=== PATIENT | female | born 1975 | race Caucasian/White ===

== ENCOUNTER 2020-12-20 17:58 | Inpatient (IN) | payer OTHER, SELFPAY ==
--- NOTE | ~2020-12-20 | MR_ITS ---
EXAMINATION: MR ABDOMEN WITHOUT CONTRAST CLINICAL INFORMATION: Gallstones. Dilated common bile duct. COMPARISON: Previous CT scan of the abdomen and pelvis 12/21/2020 and abdominal ultrasound most recent 12/28/2020 TECHNIQUE: MR abdomen is performed without gadolinium contrast. MRCP sequences were also performed. Exam is limited due to motion artifact. FINDINGS: LUNG BASES: There are very small bilateral pleural effusions. The heart is upper normal in size. LIVER, GALLBLADDER, AND BILIARY TREE: The liver is normal in size, smooth in contour, and normal in signal. No focal hepatic lesion. The gallbladder is upper normal in size. There are gallstones in the gallbladder. There is a mild gallbladder wall thickening and gallbladder wall edema. Gallbladder wall thickness measures 5 mm. There is trace pericholecystic fluid. MRCP sequences are limited due to motion artifact. There is no intra or extrahepatic biliary duct dilatation. The common bile duct measures 4 mm. No common bile duct stone is seen. PANCREAS: Unremarkable. SPLEEN: Upper normal in size measuring 13 cm. ADRENAL GLANDS: Unremarkable. KIDNEYS AND URETERS: The kidneys are normal in size and shape. No hydronephrosis. No perinephric stranding. GASTROINTESTINAL TRACT: No bowel obstruction. No ascites or fluid collection. ABDOMINAL WALL: No significant hernia is appreciated. LYMPH NODES: No lymphadenopathy. There is a small amount of ascites. VASCULAR: Unremarkable. OSSEOUS STRUCTURES: Marrow signal normal. MR/MR MRCP IMPRESSION: Limited exam due to motion artifact. Upper normal-size gallbladder, gallstones, gallbladder wall thickening and gallbladder wall edema and trace pericholecystic fluid. Findings are concerning for acute cholecystitis. Limited MRCP due to motion artifact. Normal caliber intra and extrahepatic bile ducts. No common bile duct stone seen. Trace bilateral pleural effusions and ascites. Upper normal-size spleen.
--- NOTE | ~2020-12-20 | CT_ITS ---
EXAMINATION: CT HEAD WITHOUT CONTRAST CLINICAL INFORMATION: Altered mental status COMPARISON: None TECHNIQUE: Contiguous axial imaging was performed from the skull base to vertex without intravenous administration of contrast. This CT examination was performed using dose optimization techniques as appropriate, variously including the following: *Automated exposure control *Adjustment of mA and/or kV according to patient size (this includes techniques or standardized protocols for targeted exams where dose is matched to indication/reason for exam; i.e. extremities or head) *Use of iterative reconstruction technique DLP: 881 mGy-cm FINDINGS: There is no evidence of acute intracranial hemorrhage or territorial infarction. No abnormal mass effect or midline shift is seen. Lemus to white matter differentiation is well preserved. No extra-axial fluid collections are identified. The ventricles are normal in size. There is no abnormal attenuation within the brain parenchyma. The osseous structures and soft tissues are normal. The mastoid air cells and visualized portions of the paranasal sinuses are well aerated. CT/CT head/brain wo con IMPRESSION: No acute intracranial process seen.
--- NOTE | ~2020-12-20 | XR_ITS ---
EXAMINATION: XR CHEST CLINICAL INFORMATION: Generalized weakness COMPARISON: None TECHNIQUE: 2 views of the chest were obtained. FINDINGS: The heart size is normal. Bilateral patchy interstitial/groundglass changes are present in both lungs. No gross CHF. No definite pleural effusions are seen. XR/XR chest 2V IMPRESSION: Unfortunately, no prior films are available for comparison. Patchy interstitial/groundglass changes present bilaterally. Findings could represent Covid disease. Some element of this could represent chronic interstitial changes as well and if prior films are available, these would be helpful for comparison.
--- NOTE | ~2020-12-20 | US_ITS ---
EXAMINATION: US ABDOMEN LIMITED CLINICAL INFORMATION: Elevated bilirubin. Rule out obstructive stone. COMPARISON: CT abdomen and pelvis 12/21/2020. Ultrasound abdomen limited 12/20/2020. TECHNIQUE: Real-time imaging of the right upper quadrant abdominal viscera. FINDINGS: PANCREAS: Head and body appear unremarkable. Tail is obscured by overlying bowel gas LIVER: Normal. The liver is normal in size. The liver contour is normal. Parenchymal echogenicity is normal. No focal hepatic lesion. There is no intrahepatic biliary duct dilatation seen. GALLBLADDER: Multiple calculi seen within the phrygian cap. The gallbladder wall is thickened to approximately 6 mm in diameter and there is fluid within the gallbladder wall. No tenderness to palpation overlying the gallbladder was elicited. On the provided images there appears to be trace fluid within Chin's pouch. COMMON BILE DUCT: Prominent measuring 0.8 cm in diameter. RIGHT KIDNEY: The views were limited and the known calculi from recent CT scan were not definitely identified. No hydronephrosis. No renal calculi or focal parenchymal lesions. The kidney measures 10.0 cm in maximum dimension. US/US abdomen limited IMPRESSION: Cholelithiasis with some gallbladder wall thickening and fluid within the wall and what appears to be a trace free fluid within Morison's pouch on provided images. There is prominence of the common bile duct at 8 mm in diameter with no definite calculus seen within the visualized portions of the common bile duct. No intrahepatic bile duct dilatation is present. Above findings can be consistent with acute cholecystitis and clinical correlation is suggested.
--- NOTE | ~2020-12-20 | US_ITS ---
EXAMINATION: US ABDOMEN LIMITED CLINICAL INFORMATION: Transaminitis. COMPARISON: None TECHNIQUE: Real-time imaging of the right upper quadrant abdominal viscera. FINDINGS: PANCREAS: Normal. LIVER: The liver is normal in size. The liver contour is normal. Parenchymal echogenicity is normal. No focal hepatic lesion. There is no intrahepatic biliary duct dilatation seen. GALLBLADDER: Gallstones are present in the gallbladder which is distended. The wall is thickened at 0.8 cm and fluid can be seen in the wall. Of note, the patient was NOT focally tender when the gallbladder was palpated with the ultrasound probe. COMMON BILE DUCT: Normal in caliber measuring 0.4 cm in diameter. RIGHT KIDNEY: There is a 4 x 2 x 3 mm midpole echogenic focus consistent with a stone. No hydronephrosis. No other renal calculi or focal parenchymal lesions. The kidney measures 11.0 cm in maximum dimension. FREE FLUID: None. US/US abdomen limited IMPRESSION: Abnormal gallbladder which is distended containing calculi with significant wall thickening and fluid within the wall. The Frances's sign was negative but based upon appearances, cholecystitis needs to be considered.
--- NOTE | ~2020-12-20 | XR_ITS ---
EXAMINATION: XR CHEST CLINICAL INFORMATION: Evaluate for aspiration pneumonia COMPARISON: Previous chest x-ray December 2020 TECHNIQUE: Frontal view of the chest was obtained. FINDINGS: The lung volumes are low. The cardiac silhouette may be enlarged. Hilar and mediastinal contours are unremarkable. There is bilateral airspace disease increased from previous exam. There may be a right pleural effusion. There is no left pleural effusion. There is no pneumothorax. Bony structures are unremarkable. XR/XR chest 1V IMPRESSION: Low lung volumes. Significant interval increase in bilateral airspace disease and right pleural effusion. Differential would include pulmonary edema and pneumonia.
--- NOTE | ~2020-12-20 | CT_ITS ---
EXAMINATION: CT ABDOMEN AND PELVIS WITHOUT CONTRAST CLINICAL INFORMATION: Hematuria. Transaminitis. COMPARISON: Ultrasound abdomen 12/20/2020 TECHNIQUE: Multidetector volumetric imaging was performed from the superior aspect of the liver through the pubic symphysis. Sagittal and coronal reformatted images were obtained on the technologist's workstation. No oral or intravenous contrast. This CT examination was performed using dose optimization techniques as appropriate, variously including the following: *Automated exposure control *Adjustment of mA and/or kV according to patient size (this includes techniques or standardized protocols for targeted exams where dose is matched to indication/reason for exam; i.e. extremities or head) *Use of iterative reconstruction technique DLP: 455 mGy-cm FINDINGS: LUNG BASES: There are numerous cysts and honeycombing and accentuated reticular markings at the bilateral posterior lower lobes. Subsegmental atelectasis right anterior base. There is a 5 mm nodular opacity left posterior medial base initial image, possibly confluence of vascular markings on reformatted images. There is some fatty herniation at the diaphragmatic esophageal hiatus, 2.5 cm diameter. LIVER, GALLBLADDER, AND BILIARY TREE: The liver is normal in size and smooth in contour. There is no focal hepatic parenchymal lesion or intrahepatic ductal dilatation. The gallbladder is distended to 3.7 cm in diameter. There is a phrygian cap containing several gallstones. No visible gallbladder wall thickening or pericholecystic inflammatory changes. Common duct unremarkable. PANCREAS: Normal in size and attenuation. No pancreatic ductal distention. No retroperitoneal effusion. SPLEEN: Enlarged spleen measuring 15 cm sagittal dimension and 14 cm vertical dimension. There is homogeneous subcapsular fluid inferior medial spleen measuring 1.5 x 3.2 x 3.5 cm. Remainder of the spleen is homogeneous. ADRENAL GLANDS: Unremarkable. KIDNEYS AND Ureters: There are numerous nonobstructing bilateral renal calculi upper and central and lower poles largest approximately 6 mm and 330 5HU attenuation, right lower pole. No hydronephrosis, ureteral calculi, or perinephric stranding. BLADDER: Unremarkable. GASTROINTESTINAL TRACT: Small sliding hiatal hernia with some herniation fat esophageal hiatus. No large or small bowel obstruction or focal inflammatory changes. Appendix likely visualized and unremarkable. No pneumatosis or free air. There is some mild ascites central deep pelvis and around the liver. ABDOMINAL WALL: Small fat-containing umbilical hernia under 3 cm. LYMPH NODES: No lymphadenopathy. VASCULAR: Mild prominence portal vein, 1.6 cm diameter. Abdominal aorta normal in caliber. PELVIC VISCERA: Unremarkable. OSSEOUS STRUCTURES: Unremarkable. CT/CT abdomen pelvis wo con IMPRESSION: 1. Cholelithiasis. No biliary ductal dilatation or visible gallbladder wall thickening or pericholecystic inflammatory change. Unremarkable pancreas. Liver homogeneous. 2. Enlarged spleen 15 x 14 cm with small subcapsular fluid inferior medial aspect, possibly old hematoma 3.5 x 1.5 x 3.2 cm. Mild ascites. 3. No bowel obstruction or focal inflammatory changes. Small hiatal hernia. 4. Numerous bilateral nonobstructing renal calculi. No hydronephrosis or perinephric stranding. 5. Bibasilar lung fibrotic changes with numerous cysts and honeycombing. Nodular density left medial base 5 mm possibly confluence vascular markings extending beyond field of view.
[2020-12-20 18:12] VITALS: BP 106/61; PULSE 104; RESP 18; TEMP 36.6; O2SAT 95
[2020-12-20 18:15] VITALS: BP 106/61; PULSE 100; PULSE 95; RESP 16; TEMP 36.6; O2SAT 95; O2SAT 99; BMI 16.7
--- NOTE | 2020-12-20 18:41 | ECG_ITS ---
Test Reason : WEAKNESS Blood Pressure : / mmHG Vent. Rate : 085 BPM Atrial Rate : 085 BPM P-R Int : 158 ms QRS Dur : 086 ms QT Int : 380 ms P-R-T Axes : 037 -12 031 degrees QTc Int : 452 ms Normal sinus rhythm Normal ECG No previous ECGs available Referred By: Crystal Leon Electronically Signed By:Idris Berg
--- NOTE | 2020-12-20 18:50 | ED_ITS ---
HPI - Weakness General Chief complaint: Weakness Stated complaint: GENERAL WEAKNESS Time Seen by Provider: 12/20/20 18:29 Source: patient and EMS Mode of arrival: EMS Limitations: no limitations History of Present Illness HPI Narrative: 45-year-old female with a past medical history of lupus, hypothyroidism, hypertension, asthma and chronic pain presenting to the ED with complaints of generalized weakness, decreased appetite with associated joint pain all over her body, nasal congestion and a dry cough over the past 4-5 days worse today. Denies any headaches, dizziness, changes in vision, jaw pain, paresthesias, sore throat, productive cough, shortness of breath, dyspnea on exertion, orthopnea, any symptoms or any other symptoms complaints or concerns at this time. Denies recent travel or sick contacts. MD Complaint: generalized weakness Onset (ago): day(s) (4-5 days worse today) Duration: constant Location: generalized Severity: moderate Quality: aching Relieving factors: none Exacerbating factors: movement Associated symptoms: myalgias Related Data Allergies Allergy/AdvReac Type Severity Reaction Status Date / Time No Known Allergies Allergy Verified 12/20/20 18:15 Review of Systems Review of Systems: Constitutional : + Fatigue, + Malaise, No Weight loss, No Fever, No Chills, No Night Sweats ENT/Mouth : + Nasal congestion/rhinorrhea, No Hearing loss, No Ear Pain, No Sinus Pain, No Hoarseness, No sore throat, No Swallowing Difficulty Eyes: No Eye Pain, No Swelling, No Redness, No Foreign Body, No Discharge, No Vision Changes Cardiovascular : No Chest Pain, No SOB, No Dyspnea on Exertion, No Orthopnea, No Edema, No Palpitations Respiratory : + Cough, No Sputum, No Wheezing, No Smoke Exposure, No Dyspnea Gastrointestinal : No Nausea, No Vomiting, No Diarrhea, No Constipation, No abdominal Pain, No Hematochezia, No Melena Genitourinary : no irregular bleeding, No Dysuria, No Urinary Frequency, No Hematuria, No Urinary Incontinence, No Urgency, No Flank Pain, No Urinary Flow Changes, No Hesitancy Musculoskeletal : + joint pain, + Myalgias, No Joint Swelling Skin : No Skin Lesions, No rash Neuro : + Gen Weakness, No Focal weakness, No Numbness, No Paresthesias, No Loss of Consciousness, No Dizziness, No Headache Psych : No Anxiety/Panic, No Depression, No SI/HI/AH/VH, No Social Issues, Heme/Lymph: No Bruising, No Bleeding,No Lymphadenopathy Endocrine : No Polyuria, No Polydipsia, No Temperature Intolerance Yes all other systems are reviewed and are negative [facility] Past Medical History Attestation statement: The following information was validated with the patient. Social History Social History Alcohol intake: never Smoking Status: Never smoker Use of substances other than those prescribed or required for medical reasons: No Advance Directives: No Advance Directives Information Provided: No Physical Exam Vital Signs: Vital Signs: Last Vital Signs Temp 97.8 F 12/20/20 18:15 Pulse 95 12/20/20 18:15 Resp 16 12/20/20 18:15 BP 106/61 12/20/20 18:15 Pulse Ox 95 12/20/20 18:15 Body Mass Index 16.7 Vital signs have been reviewed as normal and appeared to be correct. Blood pressure normal. Heart rate tachycardic. Respiration rate normal. Temperature normal. Oxygen saturation normal. Appearance: Alert. Oriented X3. No acute distress. Head: Normal external exam. Normocephalic. Atraumatic. Able to rotate head bila terally. Eyes: PERRLA. EOMI. No nystagmus noted. Conjunctiva and sclera normal. Eyelids normal. Corneal reflex normal. ENT: EAC normal. TM's Normal. Hearing normal. Pharynx normal. Uvula midline. t ongue midline. Moist mucous membranes. No trismus noted. No drooling noted. No muffled voice noted. No nystagmus noted. Neck: Normal inspection. Neck supple. FROM. No adenopathy. Trachea midline. Thyroid Normal. No meningeal signs. No neck mass noted. CVS: Normal heart rate and rhythm. Heart sound normal. No murmurs noted. Pulses normal throughout. Respiratory: No respiratory distress. Painless inspiration. Breath sounds normal. No wheezes/rales/rhonchi noted. Chest nontender. No accessory muscle usage noted or decreased air movement noted. Abdomen: Soft and nontender. Bowel sounds normal in all 4 quadrants. No distention noted. No organomegaly noted. No visible injury noted. Back: No CVA tenderness. Full range of motion noted. Skin: Skin warm and dry. Normal skin color. Normal skin turgor. No rashes/lesions/lacerations noted. Extremities: No lower extremity edema. Extremities exhibit normal range of motion. Extremities nontender. Able to shrug shoulders bilaterally and keep up against resistance. Neuro: Oriented X 3. No motor deficit. No sensory deficit. Reflexes normal. Moving all extremities. No focal motor deficits. Cranial nerves II-XI intact bilaterally. Facial strength normal. Normal cognition. Speech normal. Gait normal. Strength 5/5 throughout. No pronator drift. No tremor noted. No fasciculations noted. No rigidity noted. Muscle tone normal throughout. No asterixis noted. Owhwny-bv-rnuu test normal. Heel to reyes test normal. Tandem gait normal. Does not sway with eyes open. Romberg test negative. Rapid alternating movement upper extremity normal. Rapid alternating movement lower extremity normal. Hand drop from overhead Misses face. NIHSS score 0. Course Course Course Narrative: 19pm - 45-year-old female with a past medical history of lupus, hypothyroidism, hypertension, asthma and chronic pain presenting to the ED with complaints of generalized weakness, decreased appetite with associated joint pain all over her body, nasal congestion and a dry cough over the past 4-5 days worse today. - concern for COVID versus electrolyte abnormality versus lupus flare - Plan: Labs, CXR, EKG, COVID/RSV/flu swab. Provide a L of IV fluids, 30 mg of IV Toradol, 125 mg of IV Solu-Medrol and 5 mg of oxycodone then re-evaluate Reevaluation(s) Reevaluation #1: - white blood cell count 2000 - platelet count 32. - patient anemic with a H&H of 8.8/27.6 - sodium 134 - chloride 111 - anion gap 9 - BUN/creatinine 52/1.74 - direct bilirubin/AST/ALT/alkaline phosphatase all elevated at 0.6/166/47/218 - patient negative for COVID/RSV/flu - EKG is normal sinus rhythm no acute ischemic changes noted. - CXR revealed patchy interstitial ground-glass changes present bilaterally findings could represent COVID disease versus chronic interstitial changes no prior films to compare to therefore unsure. - due to patient being anemic I obtain a stool occult and patient is positive although denies any rectal bleeding or black stools. - therefore will plan to admit for pancytopenia, stool occult positive and pneumonia awaiting to discuss this patient with the hospitalist at this time. - will also give 1 g of Rocephin. Time: 20:46 Reevaluation #2: - Dr. Ledesma requested a repeat troponin therefore at 22:00 the patient will have a repeat troponin and if the troponin is within normal limits and does not trend higher he will accept the admission - he also recommending adding azithromycin. - repeat troponin placed at this time for 22:00 sign-out to KOL[facility] Devine pending troponin and admit. Patient understands agrees with this plan. Time: 21:04 MDM - Weakness Medical Records Attestation: I reviewed the patient's medical records. Lab Data Attestation: I reviewed the patient's lab results. Result diagrams: 12/20/20 19:07 12/20/20 19:07 Labs: Lab Results 12/20/20 12/20/20 12/20/20 Range/Units 19:07 19:07 19:07 WBC 2.0 L (4.8-10.8) X10*3/uL RBC 2.76 L (4.20-5.50) X10*6/uL Hgb 8.8 L (12.0-16.0) g/dl Hct 27.6 L (37-47) % MCV 100.0 H (80-98) fL MCH 31.9 (27.0-33.0) pg MCHC 31.9 (31.0-35.0) g/dl RDW 18.4 H (11.0-16.0) % Plt Count 32 L (160-400) X10*3/uL MPV Not Reportable Immature Gran % (Auto) 0.5 H (0.0-0.4) % Neut % (Auto) 80.0 H (45-73) % Lymph % (Auto) 12.5 L (20-40) % Hinds % (Auto) 5.0 (2-11) % Eos % (Auto) 2.0 (0-4) % Baso % (Auto) 0.0 (0-2) % Lymph # (Auto) 0.3 L (1.2-4.9) X10*3/uL Hinds # (Auto) 0.1 (0.1-1.2) X10*3/uL Eos # (Auto) 0.0 (0.0-0.4) X10*3/uL Baso # (Auto) 0.0 (0.0-0.2) X10*3/uL Abs Immat Gran (auto) 0.01 (0.00-0.03) X10*3/uL Absolute Neuts (auto) 1.6 L (2.0-8.3) X10*3/uL Absolute Nucleated RBC 0.020 H (0.0-0.012) X10*3/uL Nucleated RBC % (auto) 1.0 H (0.0-0.2) /100WBC Smear Tech's Comments VERIFIED Hold Purple Top PT (10.8-13.0) SEC INR (0.9-1.1) Sodium 134 L (135-145) mmol/L Potassium 4.5 (3.3-5.1) mmol/L Chloride 111 H (96-108) mmol/L Carbon Dioxide 19 L (22-29) mmol/L Anion Gap 9 L (12-20) BUN 52 H (9-16) mg/dL Creatinine 1.74 H (0.5-1.4) mg/dL Estim Creat Clear Calc 31.5 Estimated GFR 32 Random Glucose 88 (60-115) mg/dL Lactic Acid (0.5-2.0) mmol/L Calcium 9.7 (8.4-10.2) mg/dL Magnesium 1.9 (1.6-2.6) mg/dL Ferritin 635 H (10-250) ng/mL Total Bilirubin 0.9 (0.0-1.0) mg/dL Direct Bilirubin 0.6 H (0.0-0.5) mg/dL AST 166 H (5-31) U/L ALT 47 H (0-31) U/L Alkaline Phosphatase 218 H (39-117) U/L Lactate Dehydrogenase 275 H (122-220) U/L Total Creatine Kinase 22 L (26-140) U/L Troponin I High Sens (<3.5-17.0) ng/L C-Reactive Protein 5.81 H (< or = 0.50) mg/dL Total Protein 9.3 H (6.5-8.0) g/dL Albumin 1.7 L (3.5-5.0) g/dL Procalcitonin ng/mL Beta HCG, Quant mIU/mL Stool Occult Blood (NEG) Coronavirus (PCR) NEGATIVE (Negative) Influenza Type A (PCR) NEGATIVE (Negative) Influenza Type B (PCR) NEGATIVE (Negative) RSV RNA Qual (PCR) NEGATIVE (Negative) 12/20/20 12/20/20 12/20/20 Range/Units 19:07 19:07 19:07 WBC (4.8-10.8) X10*3/uL RBC (4.20-5.50) X10*6/uL Hgb (12.0-16.0) g/dl Hct (37-47) % MCV (80-98) fL MCH (27.0-33.0) pg MCHC (31.0-35.0) g/dl RDW (11.0-16.0) % Plt Count (160-400) X10*3/uL MPV Immature Gran % (Auto) (0.0-0.4) % Neut % (Auto) (45-73) % Lymph % (Auto) (20-40) % Hinds % (Auto) (2-11) % Eos % (Auto) (0-4) % Baso % (Auto) (0-2) % Lymph # (Auto) (1.2-4.9) X10*3/uL Hinds # (Auto) (0.1-1.2) X10*3/uL Eos # (Auto) (0.0-0.4) X10*3/uL Baso # (Auto) (0.0-0.2) X10*3/uL Abs Immat Gran (auto) (0.00-0.03) X10*3/uL Absolute Neuts (auto) (2.0-8.3) X10*3/uL Absolute Nucleated RBC (0.0-0.012) X10*3/uL Nucleated RBC % (auto) (0.0-0.2) /100WBC Smear Tech's Comments Hold Purple Top SEE NOTE PT (10.8-13.0) SEC INR (0.9-1.1) Sodium (135-145) mmol/L Potassium (3.3-5.1) mmol/L Chloride (96-108) mmol/L Carbon Dioxide (22-29) mmol/L Anion Gap (12-20) BUN (9-16) mg/dL Creatinine (0.5-1.4) mg/dL Estim Creat Clear Calc Estimated GFR Random Glucose (60-115) mg/dL Lactic Acid (0.5-2.0) mmol/L Calcium (8.4-10.2) mg/dL Magnesium (1.6-2.6) mg/dL Ferritin (10-250) ng/mL Total Bilirubin (0.0-1.0) mg/dL Direct Bilirubin (0.0-0.5) mg/dL AST (5-31) U/L ALT (0-31) U/L Alkaline Phosphatase (39-117) U/L Lactate Dehydrogenase (122-220) U/L Total Creatine Kinase (26-140) U/L Troponin I High Sens (<3.5-17.0) ng/L C-Reactive Protein (< or = 0.50) mg/dL Total Protein (6.5-8.0) g/dL Albumin (3.5-5.0) g/dL Procalcitonin 0.22 ng/mL Beta HCG, Quant < 2 mIU/mL Stool Occult Blood (NEG) Coronavirus (PCR) (Negative) Influenza Type A (PCR) (Negative) Influenza Type B (PCR) (Negative) RSV RNA Qual (PCR) (Negative) 12/20/20 12/20/20 12/20/20 Range/Units 19:07 20:10 20:18 WBC (4.8-10.8) X10*3/uL RBC (4.20-5.50) X10*6/uL Hgb (12.0-16.0) g/dl Hct (37-47) % MCV (80-98) fL MCH (27.0-33.0) pg MCHC (31.0-35.0) g/dl RDW (11.0-16.0) % Plt Count (160-400) X10*3/uL MPV Immature Gran % (Auto) (0.0-0.4) % Neut % (Auto) (45-73) % Lymph % (Auto) (20-40) % Hinds % (Auto) (2-11) % Eos % (Auto) (0-4) % Baso % (Auto) (0-2) % Lymph # (Auto) (1.2-4.9) X10*3/uL Hinds # (Auto) (0.1-1.2) X10*3/uL Eos # (Auto) (0.0-0.4) X10*3/uL Baso # (Auto) (0.0-0.2) X10*3/uL Abs Immat Gran (auto) (0.00-0.03) X10*3/uL Absolute Neuts (auto) (2.0-8.3) X10*3/uL Absolute Nucleated RBC (0.0-0.012) X10*3/uL Nucleated RBC % (auto) (0.0-0.2) /100WBC Smear Tech's Comments Hold Purple Top PT (10.8-13.0) SEC INR (0.9-1.1) Sodium (135-145) mmol/L Potassium (3.3-5.1) mmol/L Chloride (96-108) mmol/L Carbon Dioxide (22-29) mmol/L Anion Gap (12-20) BUN (9-16) mg/dL Creatinine (0.5-1.4) mg/dL Estim Creat Clear Calc Estimated GFR Random Glucose (60-115) mg/dL Lactic Acid 0.9 (0.5-2.0) mmol/L Calcium (8.4-10.2) mg/dL Magnesium (1.6-2.6) mg/dL Ferritin (10-250) ng/mL Total Bilirubin (0.0-1.0) mg/dL Direct Bilirubin (0.0-0.5) mg/dL AST (5-31) U/L ALT (0-31) U/L Alkaline Phosphatase (39-117) U/L Lactate Dehydrogenase (122-220) U/L Total Creatine Kinase (26-140) U/L Troponin I High Sens 20.1 H (<3.5-17.0) ng/L C-Reactive Protein (< or = 0.50) mg/dL Total Protein (6.5-8.0) g/dL Albumin (3.5-5.0) g/dL Procalcitonin ng/mL Beta HCG, Quant mIU/mL Stool Occult Blood POS (NEG) Coronavirus (PCR) (Negative) Influenza Type A (PCR) (Negative) Influenza Type B (PCR) (Negative) RSV RNA Qual (PCR) (Negative) 12/20/20 Range/Units 20:18 WBC (4.8-10.8) X10*3/uL RBC (4.20-5.50) X10*6/uL Hgb (12.0-16.0) g/dl Hct (37-47) % MCV (80-98) fL MCH (27.0-33.0) pg MCHC (31.0-35.0) g/dl RDW (11.0-16.0) % Plt Count (160-400) X10*3/uL MPV Immature Gran % (Auto) (0.0-0.4) % Neut % (Auto) (45-73) % Lymph % (Auto) (20-40) % Hinds % (Auto) (2-11) % Eos % (Auto) (0-4) % Baso % (Auto) (0-2) % Lymph # (Auto) (1.2-4.9) X10*3/uL Hinds # (Auto) (0.1-1.2) X10*3/uL Eos # (Auto) (0.0-0.4) X10*3/uL Baso # (Auto) (0.0-0.2) X10*3/uL Abs Immat Gran (auto) (0.00-0.03) X10*3/uL Absolute Neuts (auto) (2.0-8.3) X10*3/uL Absolute Nucleated RBC (0.0-0.012) X10*3/uL Nucleated RBC % (auto) (0.0-0.2) /100WBC Smear Tech's Comments Hold Purple Top PT 14.7 H (10.8-13.0) SEC INR 1.2 H (0.9-1.1) Sodium (135-145) mmol/L Potassium (3.3-5.1) mmol/L Chloride (96-108) mmol/L Carbon Dioxide (22-29) mmol/L Anion Gap (12-20) BUN (9-16) mg/dL Creatinine (0.5-1.4) mg/dL Estim Creat Clear Calc Estimated GFR Random Glucose (60-115) mg/dL Lactic Acid (0.5-2.0) mmol/L Calcium (8.4-10.2) mg/dL Magnesium (1.6-2.6) mg/dL Ferritin (10-250) ng/mL Total Bilirubin (0.0-1.0) mg/dL Direct Bilirubin (0.0-0.5) mg/dL AST (5-31) U/L ALT (0-31) U/L Alkaline Phosphatase (39-117) U/L Lactate Dehydrogenase (122-220) U/L Total Creatine Kinase (26-140) U/L Troponin I High Sens (<3.5-17.0) ng/L C-Reactive Protein (< or = 0.50) mg/dL Total Protein (6.5-8.0) g/dL Albumin (3.5-5.0) g/dL Procalcitonin ng/mL Beta HCG, Quant mIU/mL Stool Occult Blood (NEG) Coronavirus (PCR) (Negative) Influenza Type A (PCR) (Negative) Influenza Type B (PCR) (Negative) RSV RNA Qual (PCR) (Negative) Imaging Data Chest x-ray: Attestation: I personally reviewed and interpreted this imaging study as follows: Radiologist's impression: FINDINGS: The heart size is normal. Bilateral patchy interstitial/groundglass changes are present in both lungs. No gross CHF. No definite pleural effusions are seen. XR/XR chest 2V IMPRESSION: Unfortunately, no prior films are available for comparison. Patchy interstitial/groundglass changes present bilaterally. Findings could represent Covid disease. Some element of this could represent chronic interstitial changes as well and if prior films are available, these would be helpful for comparison. ECG Data Attestation: I personally reviewed and interpreted this ECG as follows: ECG interpretation date: 12/20/20 ECG interpretation time: 18:55 Interpretation: Normal sinus rhythm with ventricular rate of 85 with a normal IN interval normal QRS duration normal QT/QTC interval. No acute ischemic changes noted. Critical Care Time Critical Care Time Critical Care Time: Yes Total Critical Care Time: 60 Attestation: I personally attest to this time spent taking care of the patient Discharge Plan Discharge Clinical Impression: Pancytopenia, Acute renal failure, Pneumonia, Positive fecal occult blood test
[2020-12-20] MEDS: 0.9 % Sodium Chloride 1,000 ML 999 ML IVCONT ×2 (19:17→22:14)
[2020-12-20] MEDS: methylPREDNISolone Sod Succ/PF 125 MG/2 ML VIAL IVPUSH (19:17)
[2020-12-20] MEDS: oxyCODONE HCl Immed Release 5 MG TABLET PO (19:17)
[2020-12-20] MEDS: Ketorolac Tromethamine 30 MG/ML VIAL IVPUSH (19:17)
--- NOTE | 2020-12-20 19:20 | PC.NURSE ---
patient a&ox3, c/o 07/13 pain, cardiac rehab nurse nsr 80s, iv inserted, labs drawn, covid swab performed, will continue to monitor.
[2020-12-20 19:28] LABS: Hemoglobin 8.8 g/dl (12.0-16.0); MANUAL DIFF FLAG SCAN; Red Cell Distribution Width 18.4 % (11.0-16.0); SCAN SMEAR FLAG 1
[2020-12-20 19:29] LABS: Hematocrit 27.6 % (37-47); Imm Gran Abs Auto 0.01 X10*3/uL (0.00-0.03); Imm Gran Pct Auto 0.5 % (0.0-0.4); Lymphocytes Absolute Auto 0.3 X10*3/uL (1.2-4.9); Lymphocytes Percent Auto 12.5 % (20-40); Mean Corpuscular HGB Conc 31.9 g/dl (31.0-35.0); Mean Corpuscular Hemoglobin 31.9 pg (27.0-33.0); Monocytes Absolute Auto 0.1 X10*3/uL (0.1-1.2); Neutrophils Absolute Auto 1.6 X10*3/uL (2.0-8.3); Red Blood Count 2.76 X10*6/uL (4.20-5.50)
[2020-12-20 19:43] LABS: PLT ABN DIST 1; Platelet Count 32 X10*3/uL (160-400)
[2020-12-20 19:50] LABS: Alanine Aminotransferase 47 U/L (0-31); Albumin Level 1.7 g/dL (3.5-5.0); Alkaline Phosphatase 218 U/L (39-117); Anion Gap 9 (12-20); Aspartate Amino Transferase 166 U/L (5-31); Bilirubin Direct 0.6 mg/dL (0.0-0.5); Bilirubin Total 0.9 mg/dL (0.0-1.0); Blood Urea Nitrogen 52 mg/dL (9-16); Calcium 9.7 mg/dL (8.4-10.2); Carbon Dioxide 19 mmol/L (22-29); Chloride 111 mmol/L (96-108); Creatinine Clr Calc Pharmacy 31.5; Estimated Glomerular Filt Rate 32; Glucose Random 88 mg/dL (60-115); Magnesium 1.9 mg/dL (1.6-2.6); Potassium 4.5 mmol/L (3.3-5.1); Sodium 134 mmol/L (135-145); Total Protein 9.3 g/dL (6.5-8.0)
[2020-12-20 19:52] LABS: SLIDE REVIEW VERIFIED
[2020-12-20 20:07] LABS: HCG Quantitative < 2 mIU/mL
[2020-12-20 20:11] LABS: Influenza A PCR NEGATIVE (Negative); Influenza B PCR NEGATIVE (Negative); Resp Syncy Virus RNA Qual PCR NEGATIVE (Negative); SARS COV2 PCR INHOUSE NEGATIVE (Negative)
[2020-12-20 20:20] LABS: OBS Int Ctl Valid YES; OBS1 POS (NEG)
[2020-12-20 20:36] LABS: INTERNATIONAL NORM RATIO 1.2 (0.9-1.1); Prothrombin Time 14.7 SEC (10.8-13.0)
[2020-12-20 20:48] LABS: Lactic Acid 0.9 mmol/L (0.5-2.0)
[2020-12-20 20:48] LABS: Ferritin 635 ng/mL (10-250)
[2020-12-20 20:49] LABS: C Reactive Protein 5.81 mg/dL (< or = 0.50); Lactate Dehydrogenase 275 U/L (122-220)
[2020-12-20 20:50] LABS: Procalcitonin 0.22 ng/mL; Troponin-I High Sensitivity 20.1 ng/L (<3.5-17.0)
[2020-12-20 21:39] VITALS: BP 112/78; PULSE 78; RESP 18; TEMP 36.8; O2SAT 97
--- NOTE | 2020-12-20 21:41 | P.HPHOSP_ITS ---
History of Present Illness Date of Service: 12/20/20 Chief Complaint: Generalized weakness 45-year-old female with a past medical history of lupus, hypertension, anemia, interstitial lung disease, joint pains presented to the hospital with a chief complaint of generalized weakness for the past 4 days. Mentions that she has been having body aches all over-mentions as bone pains; which have been chronic and lately has been increasing in severity. Denies any specific joint pains. Also reports dry cough. Denies fever chills. Denies any numbness tingling. Denies any GI or symptoms. Denies any chest pain palpitations. Mentioned that she has decreased oral intake lately. Denies any nausea. Review of all other systems is negative except mentioned above ER course: Per ER team patient examination was benign. Patient denied any chest pain. EKG was nonischemic. Initial troponin was [id number] troponin pending. Patient was given Solu-Medrol given concerns for ILD. COVID- 19 negative. [facility] Social History Alcohol intake: never Smoking Status: Never smoker Use of substances other than those prescribed or required for medical reasons: No Advance Directives: No Advance Directives Information Provided: No Meds Allergies Allergy/AdvReac Type Severity Reaction Status Date / Time No Known Allergies Allergy Verified 12/20/20 18:15 Active Medications: Current Medications Generic Name Dose Route Start Last Admin Trade Name Freq PRN Reason Stop Dose Admin Azithromycin 500 mg/ Sodium 250 mls @ 125 mls/hr 12/20/20 21:03 Chloride IV 12/20/20 23:02 ONCE ONE Physical Exam Vital Signs and Narrative: Vital Signs: Last Vital Signs Temp 97.8 F 12/20/20 18:15 Pulse 95 12/20/20 18:15 Resp 16 12/20/20 18:15 BP 106/61 12/20/20 18:15 Pulse Ox 95 12/20/20 18:15 Body Mass Index 16.7 Gen: Appears be in no acute distress HEENT: NCAT, Moist mucosa. Pulmonary: Vesicular breath sounds, fair air entry CVS: Normal S1-S2 Abdomen: BS+, Soft, Nontender Extremities: Warm well perfused; no focal joint swelling or tenderness noticed. Neuro: Alert and awake. Results Labs CBC and Chem 7: 12/20/20 19:07 12/20/20 19:07 Labs: Laboratory Results - last 24 hr 12/20/20 12/20/20 12/20/20 19:07 19:07 19:07 MCV 100.0 H MCH 31.9 MCHC 31.9 RDW 18.4 H Plt Count 32 L MPV Not Reportable Immature Gran % (Auto) 0.5 H Neut % (Auto) 80.0 H Lymph % (Auto) 12.5 L Morrison % (Auto) 5.0 Eos % (Auto) 2.0 Baso % (Auto) 0.0 Lymph # (Auto) 0.3 L Morrison # (Auto) 0.1 Eos # (Auto) 0.0 Baso # (Auto) 0.0 Abs Immat Gran (auto) 0.01 Absolute Neuts (auto) 1.6 L Absolute Nucleated RBC 0.020 H Nucleated RBC % (auto) 1.0 H Smear Tech's Comments VERIFIED Hold Purple Top PT INR Anion Gap 9 L Estim Creat Clear Calc 31.5 Estimated GFR 32 Random Glucose 88 Lactic Acid Calcium 9.7 Magnesium 1.9 Ferritin 635 H Total Bilirubin 0.9 Direct Bilirubin 0.6 H AST 166 H ALT 47 H Alkaline Phosphatase 218 H Lactate Dehydrogenase 275 H Total Creatine Kinase 22 L Troponin I High Sens C-Reactive Protein 5.81 H Total Protein 9.3 H Albumin 1.7 L Procalcitonin Beta HCG, Quant Stool Occult Blood Coronavirus (PCR) NEGATIVE Influenza Type A (PCR) NEGATIVE Influenza Type B (PCR) NEGATIVE RSV RNA Qual (PCR) NEGATIVE 12/20/20 12/20/20 12/20/20 19:07 19:07 19:07 MCV MCH MCHC RDW Plt Count MPV Immature Gran % (Auto) Neut % (Auto) Lymph % (Auto) Morrison % (Auto) Eos % (Auto) Baso % (Auto) Lymph # (Auto) Morrison # (Auto) Eos # (Auto) Baso # (Auto) Abs Immat Gran (auto) Absolute Neuts (auto) Absolute Nucleated RBC Nucleated RBC % (auto) Smear Tech's Comments Hold Purple Top SEE NOTE PT INR Anion Gap Estim Creat Clear Calc Estimated GFR Random Glucose Lactic Acid Calcium Magnesium Ferritin Total Bilirubin Direct Bilirubin AST ALT Alkaline Phosphatase Lactate Dehydrogenase Total Creatine Kinase Troponin I High Sens C-Reactive Protein Total Protein Albumin Procalcitonin 0.22 Beta HCG, Quant < 2 Stool Occult Blood Coronavirus (PCR) Influenza Type A (PCR) Influenza Type B (PCR) RSV RNA Qual (PCR) 12/20/20 12/20/20 12/20/20 19:07 20:10 20:18 MCV MCH MCHC RDW Plt Count MPV Immature Gran % (Auto) Neut % (Auto) Lymph % (Auto) Morrison % (Auto) Eos % (Auto) Baso % (Auto) Lymph # (Auto) Morrison # (Auto) Eos # (Auto) Baso # (Auto) Abs Immat Gran (auto) Absolute Neuts (auto) Absolute Nucleated RBC Nucleated RBC % (auto) Smear Tech's Comments Hold Purple Top PT INR Anion Gap Estim Creat Clear Calc Estimated GFR Random Glucose Lactic Acid 0.9 Calcium Magnesium Ferritin Total Bilirubin Direct Bilirubin AST ALT Alkaline Phosphatase Lactate Dehydrogenase Total Creatine Kinase Troponin I High Sens 20.1 H C-Reactive Protein Total Protein Albumin Procalcitonin Beta HCG, Quant Stool Occult Blood POS Coronavirus (PCR) Influenza Type A (PCR) Influenza Type B (PCR) RSV RNA Qual (PCR) 12/20/20 20:18 MCV MCH MCHC RDW Plt Count MPV Immature Gran % (Auto) Neut % (Auto) Lymph % (Auto) Morrison % (Auto) Eos % (Auto) Baso % (Auto) Lymph # (Auto) Morrison # (Auto) Eos # (Auto) Baso # (Auto) Abs Immat Gran (auto) Absolute Neuts (auto) Absolute Nucleated RBC Nucleated RBC % (auto) Smear Tech's Comments Hold Purple Top PT 14.7 H INR 1.2 H Anion Gap Estim Creat Clear Calc Estimated GFR Random Glucose Lactic Acid Calcium Magnesium Ferritin Total Bilirubin Direct Bilirubin AST ALT Alkaline Phosphatase Lactate Dehydrogenase Total Creatine Kinase Troponin I High Sens C-Reactive Protein Total Protein Albumin Procalcitonin Beta HCG, Quant Stool Occult Blood Coronavirus (PCR) Influenza Type A (PCR) Influenza Type B (PCR) RSV RNA Qual (PCR) Imaging Radiologist's Impressions: Impressions Chest X-Ray 12/20/20 18:41 IMPRESSION: Unfortunately, no prior films are available for comparison. Patchy interstitial/groundglass changes present bilaterally. Findings could represent Covid disease. Some element of this could represent chronic interstitial changes as well and if prior films are available, these would be helpful for comparison. Assessment and Plan (1) Pancytopenia: Status: Acute 46-year-old female with a past medical history of hypertension, anemia, interstitial lung disease, lupus on azathioprine presented to the hospital with a chief complaint of generalized weakness and bony pains. Generalized weakness/bony pains: Patient has no active signs of infection. Noted mild dehydration and MILAN. Supportive care. Dilaudid p.r.n. for pain. MILAN: Gentle IV fluids. Monitor creatinine. Avoid nephrotoxins. If not improving will defer to the primary team to consider Nephrology consult in the morning. Question patient is on an aside at home pain control. Interstitial lung disease: On exam noted to have mild crackles. Solu-Medrol 40 mg IV t.i.d.. Nebulizations. Patient also started on empiric antibiotics- ceftriaxone and azithromycin High troponins: Patient denies any chest pain. Troponins trending down. Will obtain echocardiogram. Cardiology consult. Transaminitis: Unclear etiology. Trend liver enzymes. Will send acute hepatitis panel and right upper quadrant ultrasound. Question drug related. Anemia: Patient is guaiac-positive in the ER. Hemoglobin of 8.1. Monitor H&H. IV ppi. GI consult. History of lupus: Continue home meds . DVT prophylaxis: Lovenox Full code
[2020-12-20] MEDS: cefTRIAXone sodium 1 GM in 0.9 % Sodium Chloride 50 ML IV (22:39)
[2020-12-20] MEDS: Enoxaparin Sodium 40 MG/0.4 ML SYRINGE SUBCUT (22:40)
[2020-12-20] MEDS: Azithromycin 500 MG in 0.9 % Sodium Chloride 250 ML 125 MG IV (23:52)
[2020-12-20 23:53] VITALS: BP 104/66; PULSE 80; RESP 14; TEMP 36.9; O2SAT 98
[2020-12-21 00:11] LABS: Troponin-I High Sensitivity 17.7 ng/L (<3.5-17.0)
[2020-12-21 04:40] VITALS: BP 94/65; PULSE 69; RESP 18; O2SAT 96
[2020-12-21] MEDS: 0.9 % Sodium Chloride 500 ML 50 ML IV (05:07)
[2020-12-21 05:31] LABS: Glucose Urine UA NEG (NEG); Leukocyte Esterase Urine 1+ (NEG); Nitrite Urine NEG (NEG); PH 6.5 (5.0-8.0); Specific Gravity - Urine 1.015 (1.005-1.025); UACC Culture Trigger YES; Urine Blood 3+ (NEG); Urine Ketones NEG (NEG); Urine Protein 1+ MG/DL (NEG-TRACE)
[2020-12-21 05:32] LABS: Appearance Urine HAZY; Color Urine AMBER
[2020-12-21 05:37] LABS: Bacteria Urine 1+ /LPF; Mucus Urine 1+ /LPF; Squamous Epithelial Cell Urine 1+ /LPF
[2020-12-21] MEDS: Pantoprazole Sodium 40 MG/10 ML VIAL IVPUSH (06:21)
--- NOTE | 2020-12-21 07:31 | CA_ITS ---
Transthoracic Echocardiogram Patient (Last, First, Middle): Sweta Krishna, Gender: Female Date of : 1975 Age: 45 Procedure Date: 12/21/2020 Procedure Type: Transthoracic Echocardiogram Location: ER Height: 170.18 cm Weight: 48.54 kg BSA: 1.55 m2 Heart Rate: bpm BP: 94 / 95 mmHg Metal Tube Cutter: COLIN Referring MD: Catracho Ledesma MD Symptoms: high troponin Study Quality: Good Conclusions: - Normal left ventricular size and systolic function. - Normal right ventricular cavity size. There is low normal right ventricular systolic function. Findings Left Ventricle Normal left ventricular size and systolic function. There is mildly increased left ventricular wall thickness. The visually estimated ejection fraction is between 55-60%. There is no evidence of regional wall motion abnormalities. Diastolic function is normal for age. Right Ventricle Normal right ventricular cavity size. There is low normal right ventricular systolic function. Atria Both atria are normal in size. Aortic Valve Normal aortic valve structure and function. There is no aortic valve stenosis. There is no aortic valve regurgitation. Mitral Valve Normal mitral valve structure and function. There is trace mitral valve regurgitation. There is no mitral valve stenosis. Pulmonic Valve Normal pulmonic valve structure and function. There is trace pulmonic valve regurgitation. Tricuspid Valve Normal tricuspid valve structure and function. There is no tricuspid valve regurgitation. Normal right atrial pressure. There is no evidence of pulmonary hypertension. Great Vessels The visualized portions of the pulmonary artery and branches are normal. Venous The inferior vena cava is normal in size and collapses greater than 50% with inspiration. Pericardium/Pleural There is no evidence of pericardial effusion. Prior Study Comparison No prior study available for comparison. Measurements 2D Linear Measurements IVSd: 1.01 0.6-0.9/0.6-1.0 cm LVIDd: 3.80 3.9-5.3/4.2-5.9 cm LVIDd Index: 2.45 2.4-3.2/2.2-3.1 cm/m2 LVIDs: 2.56 2.0-3.6 cm LVPWd: 1.01 0.7-1.1 cm Ao Root: 3.20 2.1-3.5 cm LA Diam: 3.60 2.7-3.8/3.0-4.0 cm LAIDs Index: 2.32 1.5-2.3 cm/m2 LV Mass: 147.96 67-162/88-224 g LV Mass Index: 95.46 43-95/49-115 g/m2 LVOT Diam: 2.30 3.0+(-)1.3 cm Mitral Valve MV Pk E: 0.69 MV PK A: 0.56 MV Decel Time: 338.00 E/A: 1.20 E'Lateral: 9.14 E'Medial: 6.42 E/E' Med: 10.80 E/E' Lat: 7.60 PHT: 99.00 MVA PHT: 2.22 Decel Cavalier: 2.05 Aortic Valve AoV Pk Malcolm: 1.10 AoV Mn Malcolm: 0.78 AoV VTI: 0.23 AoV Pk Grad: 5.00 Aov Mn Grad: 3.00 BRANDI Cont.VTI: 2.94 LVOT LVOT Pk Malcolm: 0.76 LVOT Mn Malcolm: 0.47 LVOT VTI: 0.16 LVOT Pk Grad: 2.00 LVOT Mn Grad: 1.00 LVOT Diam: 2.30 LVOT Area: 4.15 Diastolic Function MV Pk E: 0.69 MV Pk A: 0.56 E/A: 1.20 E'Medial: 6.42 E/E' Med: 10.80 E' Laterial: 9.14 E/E' Lat: 7.60 Tricuspid Valve TR Pk Malcolm: 1.87 TR Pk Grad: 14.00 RA Press: 3.00 RVSP: 17.00 Great Vessels Aorta Ao Root-2D: 3.20 2.0-3.7 cm Ao Asc: 3.10 2.1-3.4 cm Ao Arch: 2.30 Updated in Other Vendor System with Status of Final Idris Berg MD electronically signed on 12/21/2020 2:44:59 PM with status of Final
--- NOTE | 2020-12-21 07:39 | PC.NURSE ---
NURSE TO NURSE GIVEN TO [place] ON [place].
[2020-12-21 08:10] LABS: HBsAGNum1 0.15 S/CO (0.00-0.99); Hepatitis B Surface Antigen Negative (Negative); ~HepC Num1 2.09 S/CO (0.00-0.79); ~Hepatitis C Antibody Reactive (Nonreactive)
[2020-12-21 08:58] LABS: HBS Num1 46.57 mIU/mL (0-7.99); HBc Num1 0.53 S/CO (0.00-0.79); Hepatitis B Core Antibody Nonreactive (Nonreactive); ~Hepatitis B Surface Antibody REACTIVE (Nonreactive)
[2020-12-21 09:12] VITALS: BP 107/70; PULSE 88; RESP 19; TEMP 36.6; O2SAT 98
[2020-12-21 10:09] LABS: Eosinophils Percent Auto 0.5 % (0-4); Hematocrit 29.1 % (37-47); Hemoglobin 9.1 g/dl (12.0-16.0); Imm Gran Abs Auto 0.02 X10*3/uL (0.00-0.03); Imm Gran Pct Auto 0.9 % (0.0-0.4); Lymphocytes Absolute Auto 0.3 X10*3/uL (1.2-4.9); Lymphocytes Percent Auto 13.4 % (20-40); MANUAL DIFF FLAG SCAN; Mean Corpuscular HGB Conc 31.3 g/dl (31.0-35.0); Mean Corpuscular Hemoglobin 31.5 pg (27.0-33.0); Mean Corpuscular Volume 100.7 fL (80-98); Monocytes Absolute Auto 0.1 X10*3/uL (0.1-1.2); Monocytes Percent Auto 2.3 % (2-11); Neutrophils Absolute Auto 1.8 X10*3/uL (2.0-8.3); Neutrophils Percent Auto 82.9 % (45-73); Red Blood Count 2.89 X10*6/uL (4.20-5.50); Red Cell Distribution Width 18.6 % (11.0-16.0); SCAN SMEAR FLAG 1
[2020-12-21 10:11] LABS: INTERNATIONAL NORM RATIO 1.2 (0.9-1.1); Prothrombin Time 14.6 SEC (10.8-13.0)
[2020-12-21 10:16] LABS: Platelet Count 29 X10*3/uL (160-400); White Blood Count 2.2 X10*3/uL (4.8-10.8)
[2020-12-21 10:32] LABS: Anion Gap 10 (12-20); Blood Urea Nitrogen 43 mg/dL (9-16); Calcium 8.9 mg/dL (8.4-10.2); Carbon Dioxide 17 mmol/L (22-29); Chloride 116 mmol/L (96-108); Creatinine Clr Calc Pharmacy 36.9; Estimated Glomerular Filt Rate 38; Glucose Random 107 mg/dL (60-115); Magnesium 1.9 mg/dL (1.6-2.6); Potassium 5.1 mmol/L (3.3-5.1); Sodium 138 mmol/L (135-145)
[2020-12-21 10:51] LABS: HIV AB/AG Nonreactive (Nonreactive); HIV Num 1 0.17 S/CO (0.00-0.99)
[2020-12-21 10:59] LABS: SLIDE REVIEW VERIFIED
[2020-12-21 11:28] VITALS: BP 117/75; PULSE 68; RESP 17; TEMP 36.6; O2SAT 98
[2020-12-21 12:04] LABS: Folate 7.4 ng/mL (> or = 4.0); Vitamin B12 1222 pg/mL (200-900)
--- NOTE | 2020-12-21 12:12 | HO.PM.IMPN ---
Subjective Subjective Date of Service: 12/21/20 Interval History: the patient was seen and evaluated this morning Laying in bed, feels tired and complaining of pain all over her body Repeat not taking any medication for lupus Denies any fever, chills or shortness of breath No reported other overnight events. Systemic review: No fever, chills but reports generalized weakness No chest pain, palpitation Reporting exertional shortness of breath with no coughing Decreased oral intake, No abdominal pain, nausea or vomiting No urinary symptoms No any rash or wounds Physical Exam Vital Signs: Vital Signs: Last Vital Signs Temp 97.8 F 12/21/20 11:28 Pulse 68 12/21/20 11:28 Resp 17 12/21/20 11:28 BP 117/75 12/21/20 11:28 Pulse Ox 98 12/21/20 11:28 Body Mass Index 16.7 Const: Other: Constitutional : Alert, oriented, not in distress Neck : Normal inspection, Supple Cardiovascular : RRR, S1 S2, trace bilateral lower extremity edema Respiratory : Decrease bilateral air entry, basal bilateral fine crackles, no wheezes or rhonchi Gastrointestinal: soft, lax, Normal bowel sounds, Non tender Skin : Warm/Dry, No rash Neurological : Alert & oriented x3, No focal deficit Objective Data Current Medications Generic Name Dose Route Start Last Admin Trade Name Freq PRN Reason Stop Dose Admin Acetaminophen 650 mg 12/20/20 21:39 Acetaminophen 325 Mg Tablet PO Q6H PRN Pain, Mild (Pain Scale 1-3) Albuterol/Ipratropium 3 ml 12/20/20 22:06 Albuterol/Iprat 2.5/0.5mg 3 Ml Ampul.Neb INHALE RQ6H PRN Shortness of Breath/Wheezing Azithromycin 500 mg 12/21/20 22:00 Azithromycin 500 Mg Tablet PO Q24H JEREMY Enoxaparin Sodium 40 mg 12/20/20 22:00 12/20/20 22:40 Enoxaparin Sodium 40 Mg/0.4 Ml Syringe SUBCUT 40 mg Q24H JEREMY Administration Hydromorphone HCl 0.5 mg 12/21/20 21:39 Hydromorphone Hcl 0.5 Mg/0.5 Ml Syringe IVPUSH Q4H PRN Pain, Severe (Pain Scale 7-10) Ceftriaxone Sodium 1 gm/ 50 mls @ 100 mls/hr 12/21/20 21:00 Sodium Chloride IV Q24H [facility] Methylprednisolone Sodium Succinate 40 mg 12/21/20 04:00 12/21/20 11:56 Methylprednisolone Sod Succ/Pf 40 Mg/Ml Vial IVPUSH 40 mg Q8H JEREMY Administration Pantoprazole Sodium 40 mg 12/21/20 06:30 12/21/20 06:21 Pantoprazole Sodium 40 Mg/10 Ml Vial IVPUSH 40 mg DAILY@0630 JEREMY Administration Sodium Chloride 3 ml 12/21/20 00:00 12/21/20 07:36 0.9 % Sodium Chloride Flush 3 Ml Syringe IVFLUSH Not Given QSHIFT JEREMY Zolpidem Tartrate 5 mg 12/20/20 21:39 Zolpidem Tartrate 5 Mg Tablet PO BEDTIME PRN Insomnia Labs CBC & Chem 7: 12/21/20 09:25 12/21/20 09:25 Microbiology Microbiology Results: Microbiology 12/20/20 20:18 Blood - Venous Blood Culture - Preliminary Assessment and Plan (1) Pancytopenia: Status: Acute Assessment and Plan: 46-year-old female with a past medical history of hypertension, anemia, interstitial lung disease, lupus presented to the hospital with a chief complaint of generalized weakness and bony pains. Generalized weakness/bony pains no active signs of infection. mild dehydration and MILAN. Supportive care MILAN Gentle IV fluids Monitor creatinine. Avoid nephrotoxins. Could be related to home pain control with Motrin? Interstitial lung disease Does not seem in exacerbation Decrease Solu-Medrol 40 mg Nebulizers Discontinue ceftriaxone and azithromycin High troponins Patient denies any chest pain Troponins trending down Will obtain echocardiogram Transaminitis DD X, cholecystitis, hepatitis Trend liver enzymes hepatitis panel showing hepatitis C infection RUQ ultrasound showing abnormal gallbladder with multiple stones and wall thickening Keep on ceftriaxone for now Scan of abdomen pelvis Pancytopenia Could be secondary to dynamicist, infectious, inflammatory etiologies Check HIV infection Check vitamin B12 and folic acid Try to get previous blood work Positive occult blood Patient is guaiac-positive in the ER Hemoglobin of 8.1. Monitor H&H. IV ppi. GI consult. History of lupus Not on meds , to discuss with rheumatology Hematuria +3 blood in urine DD X, stones, GN To check urine electrolytes Evaluate for stone obstruction by imaging Moderate protein malnutrition Add Ensure DVT prophylaxis SCDs
[2020-12-21 14:52] VITALS: BMI 16.7
--- NOTE | 2020-12-21 14:55 | MHC.CLN ---
PT IS SEVERELY MALNOURISHED RECOMMEND ADDING ENSURE TID MONITOR PO CLOSELY SEE ALSO CLINICAL NUTRITION ASSESSMENT
--- NOTE | 2020-12-21 14:55 | PM.EVENT ---
Event Note Date of Service: 12/21/20 Event Note: GI Consult-Full note dictated Imp: 45 yo female with lupus and lung disease presenting with diffuse body pains, nonspecific low-grade abdominal pains, some anorexia, weight loss, pancytopenia, elevated LFT's, gallstones, anemia, and Heme + stool. Her HCV antibody is +. She has had no signs of GI bleeding. Her abdominal exam reveals some inconsistent and rather diffuse abdominal tenderness, but no localizing findings. She does appear rather cachectic and chronically ill. Her albumin is 1.7 and may explain the findings regarding the fluid in her GB wall, as opposed to cholecystitis given no real consistent RUQ tenderness. She may have some component of gastritis/GERD, but I don't think she is having any significant GI bleeding at this time. She does have splenomegaly which could account for her pancytopenia, but hard to say if that's from chronic liver disease or perhaps from her underlying lupus. Rec: From a GI standpoint I would recommend supportive care. Check Iron/Ferritin/B12/Folate levels and replete as needed. Change the IV PPI to po PPI BID. I don't think she needs an endoscopic w/u. Diet with supplements as tolerated. Observe re: gallbladder--if asymptomatic then no treatment needed. If begins to have localizing sx I would recommend a HIDA scan and surgical consult. Follow LFT's and PT/INR, avoid hepatotoxins, and check HCV viral load to assess for active disease. Consider Rheum evaluation to assess how much of her presentation is from active lupus. Thanks
--- NOTE | 2020-12-21 15:31 | MHC.CM.PN ---
NURSE MARKETING DATABASE COORDINATOR NOTE ELECTRONIC MEDICAL RECORD REVIWED ALONG WITH CASE DISCUSSED WITH STAFF NURSE AND HOSPITALIST , MICH WITH PATIENT , SHE REPORTED THAT SHE LIVES ALONE SHE IS INDEPENDENT IN ADLS BUT AT A SLOW PACE, SHE NEEDS ASSISTANCE WITH GROCERY SHOPPING, HOUSEKEEPING CHORES AND LAUNDRY AND HAS A FRIEND OR TWO THAT HELPS HER . SHE HAS NO VNA , NO DME SERVICES AT THE HOME SHE LIVES ALONE, SHE WOULD LIKE TO HAVE VNA AT DISCHARGE. I HAVE REVIEWED WITH HER THE [facility] INSURANCE CONTRACTS AND PATIENT CHOSE THE [facility] VNA , (RFERRAL INIATED ) Patient is alds notes that her pcp is at [facility], she is followed by a renal and grant specialist . (she does not rember the names) DISCHARGE PLAN 1HOME WITH NEW REFERRAL TO THE [facility] FOR NURSING FOR DIAGNOSIS SIGN SYMNPTOM MANAGEMENT AND DEVELOPEMENT OF ACTION PLAN AND MEDICATION RECONCILATION VS HOME WITH NO SERVICES TRANSPORTATION TO BE FURTHER DETERMINED FRIEND OR MAY NEED ASSISTANCE WITH TRANSPRTY
[2020-12-21 15:51] LABS: Iron 65 mcg/dL (30-160); Percent Iron Saturation 42 % (15-50); Total Iron Binding Capacity 153 mcg/dL (228-428); Unsaturated Iron Binding 88 ug/dL
[2020-12-21 16:00] VITALS: BP 115/56; PULSE 78; RESP 18; TEMP 36.5; O2SAT 95
[2020-12-21] MEDS: vancomycin HCL 1,000 MG in 0.9 % Sodium Chloride 250 ML 270 MG IV (16:41)
[2020-12-21] MEDS: Omeprazole 20 MG CAPSULE.DR PO (16:46)
[2020-12-21] MEDS: 0.9 % Sodium Chloride 1,000 ML 60 ML IVCONT (16:47)
--- NOTE | 2020-12-21 17:21 | CONS_ITS ---
DATE OF SERVICE: 12/21/2020 REASON FOR CONSULTATION: Anemia, heme-positive stool, and elevated LFTs. HISTORY OF PRESENT ILLNESS: This has been obtained from the patient, the electronic medical record, and her nurse. The patient is a 45-year-old female with an apparent underlying history of lupus, who describes at least 2 weeks of ongoing issues with diffuse body pain and some anorexia. During this time, she has had a rather nonspecific and diffuse abdominal discomfort that comes and goes, but has not been associated with any vomiting, nausea, fevers, nor jaundice. She describes having lost at least 10 pounds. During this time, she reports that her bowel movements have been fairly regular and without any associated melena nor hematochezia. The patient denies any chronic GI problems in the past. She denies any history of liver disease in herself nor family members. She does use 1 or 2 doses of Tylenol every day for aches and pains and some ibuprofen. She does not use anything excessively. She denies tobacco nor any alcohol. She denies any drug use. On admission here, she was found to be anemic with heme-positive stool, but without any sign of active bleeding. She has had no bleeding since she has been up on the medical floor. She has also been found to have elevated LFTs. At the present time, she denies any ongoing abdominal pain other than some intermittent and rather diffuse discomfort, but nothing localizing to the right upper quadrant nor any other specific area. She did have some food earlier today and did not notice any worsening of her abdominal symptoms. She reports that she was on some medication at home, but I do not see a list of that and she cannot recall the names. Current medications here in the hospital include acetaminophen, albuterol inhaler, ceftriaxone, IV methylprednisolone, IV Protonix, IV vancomycin, and Ambien. PAST MEDICAL HISTORY: She denies any surgeries. She has a history of lupus with what she reports as skin and lung involvement. She denies any history of heart disease, diabetes, nor stroke. She apparently is followed at [place] and possibly [place] for her medical issues. SOCIAL HISTORY: She denies alcohol use. She denies tobacco. She does not use any drugs. REVIEW OF SYSTEMS: CONSTITUTIONAL: She has been feeling poorly with fatigue and body aches at home, as well as some anorexia. CARDIAC: No chest pain. PULMONARY: No coughing nor hemoptysis. GASTROINTESTINAL: As above. PHYSICAL EXAMINATION: GENERAL: The patient is a chronically ill-appearing female with some bitemporal wasting. Anicteric sclerae. NECK: Supple. There are no obvious spider angiomata. ABDOMEN: Soft, nondistended. Normal bowel sounds. There, she does have some mild areas of inconsistent and diffuse tenderness, but without any focal mass, rebound, or guarding. LABORATORY DATA: White blood cell count 2.2, hemoglobin 9.1, MCV 101, platelets 29,000. PT 14.6 with INR 1.2. Sodium 138, potassium 5.1, BUN 43, creatinine 1.5. Lactic acid level is 0.9. Vitamin B12 level 1222, folate 7.4. Her ferritin was 635, total bilirubin 0.9, AST 166, ALT 47, alkaline phosphatase 218, LDH 275, albumin 1.7. Stool was heme positive. COVID test was negative. Hepatitis B profile is negative for the hepatitis B antigen, but positive for the hepatitis B antibody. She has a positive hepatitis C antibody. Hepatitis A IgM is pending. HIV is negative. Her imaging studies included an abdominal ultrasound describing gallstones and gallbladder wall thickening with some fluid in the gallbladder wall. However, the gallbladder was not tender during the ultrasound. There is no biliary disease. There is no ascites. A CAT scan describes numerous cysts and honeycombing with atelectasis in her lungs, liver appeared normal and without any signs of cirrhosis. There were no lesions. There was no biliary disease. The gallbladder described gallstones, but there was no gallbladder wall thickening nor fluid. The common duct was unremarkable. The pancreas appeared normal. The spleen was enlarged. There were numerous nonobstructing kidney stones. The GI tract appeared unremarkable. IMPRESSION: From a GI standpoint, she does appear to have some chronic symptomatology, but nothing acute. The heme-positive stool does not seem worrisome given no sign of active bleeding. Her anemia seems to be quite chronic based on the workup with an elevated ferritin and her medical issues. I do not think the anemia reflects any acute blood loss. Therefore, I do not think she needs an endoscopic workup at this time. In regard to the gallbladder findings, I do not think this reflects cholecystitis and I think the ultrasound findings with the gallbladder and fluid in the wall of the gallbladder are related to the low albumin. She does have any abdominal findings to suggest cholecystitis. She may have some component of gastritis and/or reflux given her appearance and clinical history, but again I do not think she has any ongoing GI blood loss to speak of. Her splenomegaly and pancytopenia could be related to the lupus or perhaps some underlying chronic liver disease, but there was no definitive evidence of cirrhosis on her imaging studies, which would tend to go against the splenomegaly and pancytopenia being as a result of cirrhosis. At this point, I will continue supportive care from a GI standpoint. I would change her IV PPI to oral PPI. Again, I do not think endoscopic workup is required. I would continue her diet as tolerated with supplements. I would observe for the gallbladder and if asymptomatic, would not need any particular treatment. Clearly, if she begins having localizing pain in the right upper quadrant, I would then recommend a HIDA scan and surgical consult. We will continue follow the LFTs and PT with INR, avoid hepatotoxins, and check a hepatitis C viral load to assess for activity of disease. Lastly given all of her systemic symptoms and reported lupus, I would consider rheumatology evaluation to assess how much her presentation is in relation to active lupus and whether any specific treatment might help that. Thank you for this consultation. MD WEI Lugo/GRICELDA / [phone]
[2020-12-21 19:40] VITALS: BP 115/78; PULSE 75; RESP 19; TEMP 36.6; O2SAT 97
[2020-12-21] MEDS: oxyCODONE HCl Immed Release 5 MG TABLET PO (21:50)
[2020-12-21] MEDS: cefTRIAXone sodium 1 GM in 0.9 % Sodium Chloride 50 ML IV (21:53)
[2020-12-21 22:58] VITALS: BP 121/75; PULSE 62; RESP 19; TEMP 36.6; O2SAT 95
[2020-12-21] MEDS: 0.9 % Sodium Chloride Flush 3 ML SYRINGE IVFLUSH (23:24)
[2020-12-22] VITALS (7 sets, daily range): BP systolic 110–118; BP diastolic 63–85; PULSE 60–86; RESP 16–20; TEMP 36.2–37.4; O2SAT 94–99
[2020-12-22] MEDS: Omeprazole 20 MG CAPSULE.DR PO ×2 (06:12→15:58)
[2020-12-22 06:49] LABS: INTERNATIONAL NORM RATIO 1.2 (0.9-1.1)
[2020-12-22 07:18] LABS: Basophils Percent Auto 0.3 % (0-2); Hematocrit 25.2 % (37-47); Imm Gran Abs Auto 0.02 X10*3/uL (0.00-0.03); Imm Gran Pct Auto 0.7 % (0.0-0.4); Lymphocytes Absolute Auto 0.4 X10*3/uL (1.2-4.9); Lymphocytes Percent Auto 13.9 % (20-40); MANUAL DIFF FLAG SCAN; Mean Corpuscular HGB Conc 31.7 g/dl (31.0-35.0); Mean Corpuscular Hemoglobin 32.4 pg (27.0-33.0); Monocytes Absolute Auto 0.1 X10*3/uL (0.1-1.2); Monocytes Percent Auto 4.3 % (2-11); Neutrophils Absolute Auto 2.5 X10*3/uL (2.0-8.3); Neutrophils Percent Auto 80.8 % (45-73); Red Blood Count 2.47 X10*6/uL (4.20-5.50); Red Cell Distribution Width 19.1 % (11.0-16.0); SCAN SMEAR FLAG 1
[2020-12-22 07:19] LABS: Alanine Aminotransferase 29 U/L (0-31); Albumin Level 1.7 g/dL (3.5-5.0); Alkaline Phosphatase 159 U/L (39-117); Anion Gap 6 (12-20); Aspartate Amino Transferase 70 U/L (5-31); Bilirubin Direct 0.3 mg/dL (0.0-0.5); Bilirubin Total 0.5 mg/dL (0.0-1.0); Blood Urea Nitrogen 57 mg/dL (9-16); Calcium 8.7 mg/dL (8.4-10.2); Carbon Dioxide 18 mmol/L (22-29); Chloride 119 mmol/L (96-108); Creatinine Clr Calc Pharmacy 39.5; Estimated Glomerular Filt Rate 41; Glucose Random 91 mg/dL (60-115); Potassium 5.1 mmol/L (3.3-5.1); Sodium 138 mmol/L (135-145); Total Protein 8.6 g/dL (6.5-8.0)
[2020-12-22 07:22] LABS: Platelet Count 48 X10*3/uL (160-400)
[2020-12-22 07:39] LABS: SLIDE REVIEW VERIFIED
[2020-12-22 08:14] LABS: Hepatitis A Antibody IgM 0.26 Index (0-0.79); ~Hepatitis A Antibody IgM Nonreactive (Nonreactive)
--- NOTE | 2020-12-22 08:43 | PM.HEMONCCN ---
Subjective - Subjective Chief complaint: Consultation for anemia and thrombocytopenia. Patient: new to practice Consult date: 12/22/20 Requesting Physician: Yossi. Primary Care Provider: Unknown Physician Medical Summary: DIAGNOSIS: Pancytopenia. Abnormal protein. HPI - Consult Narrative Reason for consult: Consult for anemia and thrombocytopenia. Narrative: Sweta Krishna is a pleasant 45 year old lady with an apparent underlying history of lupus, She describes at least 2 weeks of ongoing issues with diffuse body pain and some anorexia. During this time, she has had a rather nonspecific and diffuse abdominal discomfort that comes and goes, but has not been associated with any vomiting, nausea, fevers, nor jaundice. She describes having lost at least 10 pounds. She also reports that her bowel movements have been fairly regular and without any associated melena nor hematochezia. She denies any chronic GI problems in the past. She denies any history of liver disease in herself nor family members. She does use 1 or 2 doses of Tylenol every day for aches and pains and some ibuprofen. She does not use anything excessively. She denies tobacco nor any alcohol. She denies any drug use. On admission here, she was found to be anemic with heme-positive stool, but without any sign of active bleeding. She has had no bleeding since she has been up on the medical floor. She has also been found to have elevated LFTs. At the present time, she denies any ongoing abdominal pain other than some intermittent and rather diffuse discomfort, but nothing localizing to the right upper quadrant nor any other specific area. She did have some food earlier today and did not notice any worsening of her abdominal symptoms. She reports that she was on some medication at home, but I do not see a list of that and she cannot recall the names. Current medications here in the hospital include acetaminophen, albuterol inhaler, ceftriaxone, IV methylprednisolone, IV Protonix, IV vancomycin, and Ambien. CBC from 12/25: WBC 1.8, HGB 8.1, HCT 25.6, MCV 102.4, PLT 37. Review of Systems - Constitutional Reports system reviewed and no additional complaints, except as documented, Reports malaise, Reports weakness, Reports weight loss, Denies fever(s) - Eyes Reports system reviewed and no additional complaints, except as documented, Denies blurry vision - ENT Reports system reviewed and no additional complaints, except as documented - Cardiovascular Reports system reviewed and no additional complaints, except as documented, Denies chest pain at rest - Respiratory Reports no additional respiratory complaints - Gastrointestinal Reports system reviewed and no additional complaints, except as documented, Reports abdominal pain - Genitourinary Reports no additional female genitourinary complaints, Denies abnormal vaginal bleeding - Musculoskeletal Reports system reviewed and no additional complaints, except as documented, Denies back pain - Integumentary/Breasts Skin/Breast: Reports no additional skin complaints, Denies bleeding lesions - Neurologic Reports system reviewed and no additional complaints, except as documented - Psychiatric Reports system reviewed and no additional complaints, except as documented, Denies anxiety - Endocrine Reports no additional endocrine complaints, Denies excessive sweating - Hematologic/Lymphatic Reports system reviewed and no additional complaints, except as documented, Denies easy bruising - Allergic/Immunologic Reports system reviewed and no additional complaints, except as documented, Denies GI upset with certain foods PMFSH Medical History: Medical History (Last Reviewed 12/29/20 @ 15:19 by Carl Tello MD) Hepatitis C Spleen anomaly Staphylococcus aureus bacteremia Functional capacity: independent ambulation Patient : No Social History: Social History (Last Reviewed 12/29/20 @ 15:19 by Carl Tello MD) Living Situation History: Household Members: None Housing: Apartment Alcohol History: Alcohol intake: never Occupation Assessmet: service: No Current occupational status: disabled Smoking status: Never smoker Home Medications and Allergies Current Medications: Current Medications Generic Name Dose Route Start Last Admin Trade Name Freq PRN Reason Stop Dose Admin Albuterol/Ipratropium 3 ml 12/20/20 22:06 Albuterol/Iprat 2.5/0.5mg 3 Ml Ampul.Neb INHALE RQ6H PRN Shortness of Breath/Wheezing Ceftriaxone Sodium 1 gm/ 50 mls @ 100 mls/hr 12/21/20 21:00 12/21/20 22:43 Sodium Chloride IV Infused Q24H JER[facility]Y Infusion Sodium Chloride 1,000 mls @ 60 mls/hr 12/21/20 15:15 12/22/20 06:35 Ns IVCONT Infused .[id number] JER[facility]Y Infusion Vancomycin HCl 1,000 mg/ 270 mls @ 270 mls/hr 12/22/20 16:00 Sodium Chloride IV Q24H JER[facility] Methylprednisolone Sodium Succinate 40 mg 12/21/20 12:30 12/21/20 12:27 Methylprednisolone Sod Succ/Pf 40 Mg/Ml Vial IVPUSH Not Given Q24H [facility] Omeprazole 20 mg 12/21/20 16:30 12/22/20 06:12 Omeprazole 20 Mg Capsule. PO 20 mg BID@0630,1630 JEREMY Administration Oxycodone HCl 5 mg 12/21/20 19:57 12/21/20 21:50 Oxycodone Hcl Immed Release 5 Mg Tablet PO 5 mg Q6H PRN Administration [facility] Consult 1 each 12/21/20 15:12 Consult Rx Vancomycin Dosing MISCELLANE DAILY PRN Consult order Sodium Chloride 3 ml 12/21/20 00:00 12/21/20 23:24 0.9 % Sodium Chloride Flush 3 Ml Syringe IVFLUSH 3 ml QSHIFT [facility] Administration Zolpidem Tartrate 5 mg 12/20/20 21:39 Zolpidem Tartrate 5 Mg Tablet PO BEDTIME PRN Insomnia Home Medications Medication Instructions Recorded Confirmed Type Azasan 1 tab PO BID 12/28/20 12/28/20 History cholecalciferol (vitamin D3) 1 tab PO DAILY 12/28/20 12/28/20 History citalopram 1 tab PO DAILY 12/28/20 12/28/20 History ferrous sulfate 1 tab PO DAILY 12/28/20 12/28/20 History omeprazole 1 cap PO DAILY 12/28/20 12/28/20 History prednisone 1 tab PO DAILY 12/28/20 12/28/20 History trazodone 1 tab PO BEDTIME PRN 12/28/20 12/28/20 History Allergies Allergy/AdvReac Type Severity Reaction Status Date / Time No Known Allergies Allergy Verified 12/20/20 18:15 Physical Exam Vital signs: Vital Signs Temp 97.2 F 12/22/20 07:45 Pulse 67 12/22/20 07:45 Resp 16 12/22/20 07:45 BP 116/82 12/22/20 07:45 Pulse Ox 99 12/22/20 07:45 Intake & Output 12/21/20 12/22/20 12/22/20 18:59 06:59 18:59 Intake Total 1240 / 3050 1810 / 3050 Output Total 0 / 0 Balance 1240 / 3050 1810 / 3050 Intake: Intake, Oral Amount 470 / 1230 760 / 1230 Intake, IV Amount 770 / 1820 1050 / 1820 0.9 % Sodium Chloride 500 ml @ 500 / 500 50 mls/hr IV .Q10H [facility] Rx#: [id number] cefTRIAXone sodium 1 gm In 0.9 50 / 50 % Sodium Chloride 50 ml @ 100 mls/hr IV Q24H [facility] Rx#: [id number] vancomycin HCL 1,000 mg In 0.9 270 / 270 % Sodium Chloride 250 ml @ 270 mls/hr IV ONCE ONE Rx#: [id number] 0.9 % Sodium Chloride 1,000 ml 1000 / 1000 @ 60 mls/hr IVCONT .[id number] [facility] Rx#:[id number] Output: Output, Stool Amount 0 / 0 Other: Breakfast % Eaten NPO Lunch % Eaten 100% Number of Unmeasured Voids 1 Urine Bathroom Bathroom Urine Color Yellow Yellow Last Bowel Movement 12/21/20 Weight 48.534 kg Weight 48.534 kg - Constitutional Present: moderate distress - Routine HEENT Exam Head: Present: normal inspection ENT: Present: mucous membranes moist - Routine Neck Exam Present: supple - Routine Respiratory Exam Present: CTAB - Routine Cardiovascular Exam Cardiovascular: Present: RRR, S1, S2 - Routine Abdominal Exam Present: normal bowel sounds, soft, tenderness Hem/Onc Consult Result - Labs CBC & Chem 7: 01/01/21 11:50 01/01/21 08:55 Labs: Short CBC 12/21/20 12/22/20 Range/Units 09:25 06:11 WBC 2.2 L 3.0 L (4.8-10.8) X10*3/uL Hgb 9.1 L 8.0 L (12.0-16.0) g/dl Hct 29.1 L 25.2 L (37-47) % Plt Count 29 L 48 L D (160-400) X10*3/uL BMP 12/21/20 12/22/20 09:25 06:11 Sodium 138 138 Potassium 5.1 5.1 Chloride 116 H 119 H Carbon Dioxide 17 L 18 L BUN 43 H 57 H Creatinine 1.49 H 1.39 Calcium 8.9 D 8.7 Liver Function 12/22/20 Range/Units 06:11 Total Bilirubin 0.5 (0.0-1.0) mg/dL Direct Bilirubin 0.3 (0.0-0.5) mg/dL AST 70 H (5-31) U/L ALT 29 (0-31) U/L Alkaline Phosphatase 159 H D (39-117) U/L Albumin 1.7 L (3.5-5.0) g/dL Assessment and Plan (1) Pancytopenia Status: Acute This is a pleasant 45-year-old lady who presented with diffuse body aches and abdominal pain. She has had anorexia and weight loss. She has been noted to be pancytopenic. WBC 3, HGB 8, HCT 25.2, MCV 102, PLT 48. In addition she has elevated protein level at 8.6. Differential diagnosis: 1. Hypersplenism: Concern is underlying hepatitis C. 2. B12 folate deficiency: Can lead to pancytopenia. MCV is elevated. 3. Myelo infiltrative disorder: Multiple myeloma, given the elevated total protein level versus MDS, given the elevated MCV, versus lymphoma. 4. DIC: Related to infection is also in the differential. PLAN: Will proceed with an SIEP to look for a myeloma. Check serum free light chain ratio and a beta 2 microglobulin. Will check B12 and folate levels. Check LDH. Check a DIC screen. Will follow blood count over time. If the count continues to fall and the above workup is non revealing will proceed with a bone marrow exam for further evaluation. Thank you for this consult, I will follow along with you,
[2020-12-22] MEDS: 0.9 % Sodium Chloride Flush 3 ML SYRINGE IVFLUSH (09:23)
[2020-12-22] MEDS: 0.9 % Sodium Chloride 1,000 ML 60 ML IVCONT (09:27)
--- NOTE | 2020-12-22 11:17 | HO.PM.IMPN ---
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 Systemic review: No fever, chills but reports generalized weakness and pain all over her body no a No chest pain, palpitation Reporting exertional sh a ortness of breath with no coughing Decreased oral intake, No abdominal pain, nausea or vomiting No urinary symptoms No any rash or wounds Physical Exam Vital Signs: Vital Signs: Last Vital Signs Temp 97.2 F 12/22/20 07:45 Pulse 67 12/22/20 07:45 Resp 16 12/22/20 07:45 BP 116/82 12/22/20 07:45 Pulse Ox 99 12/22/20 07:45 Body Mass Index 16.7 Const: Other: Constitutional : Alert, oriented, not in distress Neck : Normal inspection, Supple Cardiovascular : RRR, S1 S2, trace bilateral lower extremity edema Respiratory : Decrease bilateral air entry, basal bilateral fine crackles, no wheezes or rhonchi Gastrointestinal: soft, lax, Normal bowel sounds, Non tender Skin : Warm/Dry, No rash Neurological : Alert & oriented x3, No focal deficit Objective Data Current Medications Generic Name Dose Route Start Last Admin Trade Name Freq PRN Reason Stop Dose Admin Albuterol/Ipratropium 3 ml 12/20/20 22:06 Albuterol/Iprat 2.5/0.5mg 3 Ml Ampul.Neb INHALE RQ6H PRN Shortness of Breath/Wheezing Ceftriaxone Sodium 1 gm/ 50 mls @ 100 mls/hr 12/21/20 21:00 12/21/20 22:43 Sodium Chloride IV Infused Q24H [facility]ER[facility]Y Infusion Sodium Chloride 1,000 mls @ 60 mls/hr 12/21/20 15:15 12/22/20 09:27 Ns IVCONT 60 mls/hr .[id number] JEREMY Administration Vancomycin HCl 1,000 mg/ 270 mls @ 270 mls/hr 12/22/20 16:00 Sodium Chloride IV Q24H [facility]ER[facility]Y Methylprednisolone Sodium Succinate 40 mg 12/21/20 12:30 12/21/20 12:27 Methylprednisolone Sod Succ/Pf 40 Mg/Ml Vial IVPUSH Not Given Q24H [facility] Omeprazole 20 mg 12/21/20 16:30 12/22/20 06:12 Omeprazole 20 Mg Capsule. PO 20 mg BID@0630,1630 [facility] Administration Oxycodone HCl 5 mg 12/21/20 19:57 12/21/20 21:50 Oxycodone Hcl Immed Release 5 Mg Tablet PO 5 mg Q6H PRN Administration [facility] Consult 1 each 12/21/20 15:12 Consult Rx Vancomycin Dosing MISCELLANE DAILY PRN Consult order Sodium Chloride 3 ml 12/21/20 00:00 12/22/20 09:23 0.9 % Sodium Chloride Flush 3 Ml Syringe IVFLUSH 3 ml QSHIFT [facility] Administration Zolpidem Tartrate 5 mg 12/20/20 21:39 Zolpidem Tartrate 5 Mg Tablet PO BEDTIME PRN Insomnia Labs CBC & Chem 7: 12/22/20 06:11 12/22/20 06:11 Microbiology Microbiology Results: Microbiology 12/20/20 20:26 Blood - Venous Blood Culture - Preliminary Staphylococcus aureus 12/20/20 20:18 Blood - Venous Blood Culture - Preliminary Staphylococcus aureus 12/21/20 Unknown Urine clean catch - Clean Catch Midstream Urine Culture - Preliminary Culture in progress. Assessment and Plan (1) Pancytopenia: Status: Acute Assessment and Plan: By the 1 with will be 46-year-old female with a past medical history of hypertension, anemia, interstitial lung disease, lupus presented to the hospital with a chief complaint of generalized weakness and bony pains. Staph aureus bacteremia no clear source of infection identified Started on Vancomycin to cx GPC in clusters in 2 bottles Repeat blood cutltures To get ID eval. MILAN improving Gentle IV fluids Monitor creatinine. Avoid nephrotoxins. Interstitial lung disease Does not seem in exacerbation DC Solu-Medrol a 40 mg Nebulizers as needed Discontinue ceftriaxone and azithromycin High troponins Patient denies any chest pain Troponins trending down echocardiogram showing normal LV function a Transaminitis DD X, cholecystitis, hepatitis improving hepatitis panel showing hepatitis C infection RUQ ultrasound showing abnormal gallbladder with multiple stones and wall thickening CT Abd\Pel showed spleenomegaly GI input appreciated, chronic anemia, no cholecystitis, supportive treatment the Hepatitis C new diagnosis per patient pending viral load to get treated as OP Pancytopenia Could be secondary to Hematological, infectious, inflammatory, medications: Azathioprine? -ve HIV infection normal vitamin B12 and folic acid most recent blood work from 09/2019 within normal values, printed in her chart To get Hematology eval Anemia Positive occult blood Hemoglobin of 8, seems more chronic She has hemorroids bleeding off\on. Monitor H&H. PO ppi. GI consult appreciated History of lupus Not on meds , to discuss with rheumatology Her Primary Dr Thapa prescribe the Azathioprime, tried to call but never picked up in clinic! Hematuria +3 blood in urine DD X, stones, GN, mixed w GI bleed To check urine electrolytes Evaluate for stone obstruction by imaging Moderate protein malnutrition Add Ensure DVT prophylaxis SCDs
--- NOTE | 2020-12-22 11:44 | MHC.CM.PN ---
PER MULTIDISCIPLINARY ROUNDS PT IS WILL BE HERE THROUGH WEEKEND, ANTICIPATED D/C EARLY NEXT WEEK, CM WILL UPDATED [facility].
--- NOTE | 2020-12-22 13:19 | W.MHC.ACPN ---
Advanced Care Planning Note Advanced Care Planning Note Discussed with: family member(s) Time spent (in minutes): 20 Narrative: I had a chance to speak with the patient daughter and HCP the phone to discuss current hospital stay and advanced directive. The patient was admitted to the hospital for evaluation of failure to thrive and altered mentation. She was the evaluated and treating accordingly with no significant improvement as she failed swallowing evaluation the and kept NPO. A PEG tube was placed for feeding and she was able to tolerate feeding well. She remains bedridden, altered mentation, Problems Discussed (1) Pancytopenia:
--- NOTE | 2020-12-22 13:35 | MHC.CM.PN ---
CM MET WITH PT TO DISCUSS STR OPTINS DUE TO PT RECOMMENDING STR UPON D/C, PT ADAMANTLY REFUSING STR EVEN AFTER EXPLAINING IT WOULD BE VERY SHORT TERM AND SHE CAN WORK ON SETTING UP HER MASTER POLICE DETECTIVE WHILE IN REHAB, PT CONTINUES TO DECLINE AND INITIALLY DECLINED [facility] SERVICES HOWEVER IS NOW IN AGREEMENT, PT DOES REPORT BEING APPROVED FOR A MASTER POLICE DETECTIVE THROUGH [employer] AND HAS A FAMILY MEMBER (KARLA) WILLING TO BE HER MASTER POLICE DETECTIVE, PT UNSURE OF HOW MANY HOURS SHE WAS APPROVED FOR AND REPORTS SHE IS WAITING FOR A CALL FROM [employer] TO FIND OUT.
--- NOTE | 2020-12-22 14:06 | P.CNID_ITS ---
History of Present Illness Data of Consult Service Date: 12/22/20 Requesting physician: Ari Burris Primary Care Provider: Unknown Physician HPI Reason for consult: staph bacteremia She present with four days body weakness and fatigue and dry cough She feels as though she has a feverish feeling She has staph aureus bacteremia CT subcapsular hematoma spleen and denies trauma Echo and HIV are unremarkable Hepatitis C is newly positive. Review of Systems Review of Systems: Yes all other systems are reviewed and are negative PMFSH Past Medical History Medical History Hepatitis C Spleen anomaly Staphylococcus aureus bacteremia Family History Family history: reviewed and not pertinent Social History Social History Household Members: None Housing: Apartment Do you presently have visiting nurse or other home services: No Alcohol intake: never Smoking Status: Never smoker Smoked in Last 30 Days: No Use of substances other than those prescribed or required for medical reasons: No Currently Displaying Signs/Symptoms of Drug Intoxication Withdrawal: No Any prior treatment program specific to substance use: No Have you been hit, kicked, punched, or otherwise hurt by someone within the past year? If so, by whom?: No Do you feel safe in your current relationship?: No Is there a partner from a previous relationship who is making you feel unsafe no w?: No Are you made to feel afraid or neglected: No Advance Directives: No Advance Directives Information Provided: No Do you have thoughts of harming others: None Do you have a plan to hurt others: No Plan Recently lost weight without trying: No service: No Current occupational status: disabled Meds Allergies Allergy/AdvReac Type Severity Reaction Status Date / Time No Known Allergies Allergy Verified 12/20/20 18:15 Active Medications: Current Medications Generic Name Dose Route Start Last Admin Trade Name Freq PRN Reason Stop Dose Admin Albuterol/Ipratropium 3 ml 12/20/20 22:06 Albuterol/Iprat 2.5/0.5mg 3 Ml Ampul.Neb INHALE RQ6H PRN Shortness of Breath/Wheezing Sodium Chloride 1,000 mls @ 60 mls/hr 12/21/20 15:15 12/22/20 09:27 Ns IVCONT 60 mls/hr .[id number] JEREMY Administration Vancomycin HCl 1,000 mg/ 270 mls @ 270 mls/hr 12/22/20 16:00 Sodium Chloride IV Q24H JEREMY Omeprazole 20 mg 12/21/20 16:30 12/22/20 06:12 Omeprazole 20 Mg Capsule.Dr PO 20 mg BID@0630,1630 JEREMY Administration Oxycodone HCl 5 mg 12/21/20 19:57 12/21/20 21:50 Oxycodone Hcl Immed Release 5 Mg Tablet PO 5 mg Q6H PRN Administration [facility] Consult 1 each 12/21/20 15:12 Consult Rx Vancomycin Dosing MISCELLANE DAILY PRN Consult order Sodium Chloride 3 ml 12/21/20 00:00 12/22/20 09:23 0.9 % Sodium Chloride Flush 3 Ml Syringe IVFLUSH 3 ml QSHIFT [facility] Administration Zolpidem Tartrate 5 mg 12/20/20 21:39 Zolpidem Tartrate 5 Mg Tablet PO BEDTIME PRN Insomnia Home Medications Medication Instructions Recorded Confirmed Last Taken Type azathioprine [Azasan] 1 tab PO BID 12/28/20 12/28/20 Unknown History cholecalciferol (vitamin D3) 1 tab PO DAILY 12/28/20 12/28/20 Unknown History citalopram 1 tab PO DAILY 12/28/20 12/28/20 Unknown History ferrous sulfate 1 tab PO DAILY 12/28/20 12/28/20 Unknown History omeprazole 1 cap PO DAILY 12/28/20 12/28/20 Unknown History prednisone 1 tab PO DAILY 12/28/20 12/28/20 Unknown History trazodone 1 tab PO BEDTIME PRN 12/28/20 12/28/20 Unknown History Physical Exam Vital Signs: Vital Signs: Last Vital Signs Temp 97.5 F 12/22/20 11:57 Pulse 71 12/22/20 11:57 Resp 17 12/22/20 11:57 BP 118/83 12/22/20 11:57 Pulse Ox 95 12/22/20 11:57 Body Mass Index 16.7 Const: General: cooperative Orientation/consciousness: patient oriented x3 HENMT: Head: Yes normal to inspection Mouth: Normal oral and palatal mucosa present Eyes: General: appearance normal, both eyes and all related structures Resp: Effort & Inspection: normal respiratory effort Cardio: Rate: regular rate Rhythm: regular rhythm GI: Palpation (GI): Soft to palpation and nontender : General: Yes no CVA tenderness Back/Spine/Pelvis: Back: no CVA tenderness Skin: General skin exam: no rashes or lesions noted Neuro: General: patient oriented x3 and moves all extremities Extrem: General: Yes normal to inspection Psych: Appearance: grossly normal Results Labs CBC & Chem 7: 12/29/20 06:07 12/29/20 06:07 Labs: Short CBC 12/22/20 Range/Units 06:11 WBC 3.0 L (4.8-10.8) X10*3/uL Hgb 8.0 L (12.0-16.0) g/dl Hct 25.2 L (37-47) % Plt Count 48 L D (160-400) X10*3/uL BMP 12/22/20 06:11 Sodium 138 Potassium 5.1 Chloride 119 H Carbon Dioxide 18 L BUN 57 H Creatinine 1.39 Calcium 8.7 Liver Function 12/22/20 Range/Units 06:11 Total Bilirubin 0.5 (0.0-1.0) mg/dL Direct Bilirubin 0.3 (0.0-0.5) mg/dL AST 70 H (5-31) U/L ALT 29 (0-31) U/L Alkaline Phosphatase 159 H D (39-117) U/L Albumin 1.7 L (3.5-5.0) g/dL Microbiology Microbiology Results: Microbiology 12/20/20 20:26 Blood - Venous Blood Culture - Preliminary Staphylococcus aureus 12/20/20 20:18 Blood - Venous Blood Culture - Preliminary Staphylococcus aureus 12/21/20 Unknown Urine clean catch - Clean Catch Midstream Urine Culture - Preliminary Culture in progress. Assessment and Plan (1) Staphylococcus aureus bacteremia: Status: Acute Continue Vancomycin until results back Check drug tox screen Have Surgery or IR evaluate hematoma spleen, ?drain (doubt) (2) Spleen anomaly: Status: Acute (3) Hepatitis C: Status: Acute
[2020-12-22] MEDS: oxyCODONE HCl Immed Release 5 MG TABLET PO ×2 (14:12→21:32)
--- NOTE | 2020-12-22 15:25 | MHC.CM.PN ---
CM VERIFIED PT'S PCP AT [facility] DR. RYANNE CORTEZ.
--- NOTE | 2020-12-22 15:49 | PC.NURSE ---
1400 had drops of blood ? from rectum when walking to [place]. States she felt constipated and needed to have BM. notified.
[2020-12-22 15:55] LABS: Vancomycin Random 13.6 mcg/mL (15-20)
[2020-12-22] MEDS: vancomycin HCL 1,000 MG in 0.9 % Sodium Chloride 250 ML 270 MG IV (15:58)
[2020-12-22] MEDS: Cocoa Butter/Zinc Oxide SUPP.RECT 1 SUPP PR (16:30)
[2020-12-22 17:53] LABS: Lactate Dehydrogenase 164 U/L (122-220)
[2020-12-22 18:30] LABS: Folate 6.1 ng/mL (> or = 4.0); Vitamin B12 932 pg/mL (200-900)
[2020-12-22] MEDS: bisacodyL 5 MG TABLET.DR PO (21:33)
[2020-12-22 22:28] LABS: Amphetamine Screen Urine Not Detected (Not Detect); Barbiturates, Urine Not Detected (Not Detect); Benzodiazepines Screen Urine Not Detected (Not Detect); Cannabinoid Screen Urine Not Detected (Not Detect); Cocaine Screen Urine Not Detected (Not Detect); Opiate Screen Urine Not Detected (Not Detect); Phencyclidine Screen Urine Not Detected (Not Detect)
[2020-12-23] MEDS: 0.9 % Sodium Chloride 1,000 ML 60 ML IVCONT ×3 (02:03→19:09)
[2020-12-23 04:00] VITALS: BP 109/66; PULSE 88; RESP 18; TEMP 37.5; O2SAT 96
[2020-12-23] MEDS: oxyCODONE HCl Immed Release 5 MG TABLET PO ×3 (04:52→19:28)
[2020-12-23] MEDS: Omeprazole 20 MG CAPSULE.DR PO ×2 (06:05→16:44)
[2020-12-23 06:55] LABS: Hemoglobin 9.4 g/dl (12.0-16.0); INTERNATIONAL NORM RATIO 1.2 (0.9-1.1); NRBC Pct Auto 0.8 /100WBC (0.0-0.2); Prothrombin Time 13.9 SEC (10.8-13.0); Red Cell Distribution Width 19.8 % (11.0-16.0)
[2020-12-23 06:57] LABS: Hematocrit 30.5 % (37-47); Mean Corpuscular HGB Conc 30.8 g/dl (31.0-35.0); Mean Corpuscular Hemoglobin 31.9 pg (27.0-33.0); Mean Corpuscular Volume 103.4 fL (80-98); Red Blood Count 2.95 X10*6/uL (4.20-5.50); White Blood Count 2.6 X10*3/uL (4.8-10.8)
[2020-12-23 07:19] LABS: PLT ABN DIST 1; Platelet Count 51 X10*3/uL (160-400)
[2020-12-23 07:20] LABS: Alanine Aminotransferase 35 U/L (0-31); Albumin Level 1.7 g/dL (3.5-5.0); Alkaline Phosphatase 160 U/L (39-117); Anion Gap 8 (12-20); Aspartate Amino Transferase 79 U/L (5-31); Bilirubin Direct 0.3 mg/dL (0.0-0.5); Bilirubin Total 0.5 mg/dL (0.0-1.0); Blood Urea Nitrogen 40 mg/dL (9-16); Calcium 8.8 mg/dL (8.4-10.2); Carbon Dioxide 14 mmol/L (22-29); Chloride 121 mmol/L (96-108); Estimated Glomerular Filt Rate > 60; Glucose Random 79 mg/dL (60-115); Lactate Dehydrogenase 175 U/L (122-220); Potassium 3.6 mmol/L (3.3-5.1); Sodium 139 mmol/L (135-145); Total Protein 8.7 g/dL (6.5-8.0)
[2020-12-23 08:00] VITALS: BP 112/80; PULSE 110; RESP 19; TEMP 37.3; O2SAT 95
--- NOTE | 2020-12-23 09:56 | P.PNIM_ITS ---
Subjective Subjective Date of Service: 12/23/20 Interval History: Seen in f/u for Staph Aureus bacteremia of unknown source. Feels tired, unwell Review of Systems Gen: no fever Resp: no sob, no cough CV: no chest, no DICKINSON, no leg edema GI: No n/v, no abd pain Neuro: No confusion Physical Exam Vital Signs: Vital Signs: Last Vital Signs Temp 99.2 F 12/23/20 08:00 Pulse 110 H 12/23/20 08:00 Resp 19 12/23/20 08:00 BP 112/80 12/23/20 08:00 Pulse Ox 95 12/23/20 08:00 Body Mass Index 16.7 Const: Other: Constitutional : Alert, oriented, not in distress Neck : Normal inspection, Supple Cardiovascular : RRR, S1 S2, trace bilateral lower extremity edema, No murmur Respiratory : Decrease bilateral air entry, basal bilateral fine crackles, no wheezes or rhonchi Gastrointestinal: soft, lax, Normal bowel sounds, Non tender Skin : Warm/Dry, No rash Neurological : Alert & oriented x3, No focal deficit Objective Data Current Medications Generic Name Dose Route Start Last Admin Trade Name Freq PRN Reason Stop Dose Admin Albuterol/Ipratropium 3 ml 12/20/20 22:06 Albuterol/Iprat 2.5/0.5mg 3 Ml Ampul.Neb INHALE RQ6H PRN Shortness of Breath/Wheezing Bisacodyl 5 mg 12/22/20 21:00 12/22/20 21:33 Bisacodyl 5 Mg Tablet. PO 5 mg BEDTIME JEREMY Administration Sodium Chloride 1,000 mls @ 60 mls/hr 12/21/20 15:15 12/23/20 02:04 Ns IVCONT 60 mls/hr .[id number] JEREMY Administration Vancomycin HCl 1,000 mg/ 270 mls @ 270 mls/hr 12/22/20 16:00 12/22/20 16:59 Sodium Chloride IV Infused Q24H JEREMY Infusion Omeprazole 20 mg 12/21/20 16:30 12/23/20 06:05 Omeprazole 20 Mg Capsule. PO 20 mg BID@0630,1630 JEREMY Administration Oxycodone HCl 5 mg 12/21/20 19:57 12/23/20 04:52 Oxycodone Hcl Immed Release 5 Mg Tablet PO 5 mg Q6H PRN Administration [facility] Consult 1 each 12/21/20 15:12 Consult Rx Vancomycin Dosing MISCELLANE DAILY PRN Consult order Psyllium Hydrophilic Mucilloid 3.4 gm 12/22/20 15:30 12/23/20 08:27 Psyllium Seed 3.4 Gm Powd.Pack PO Not Given DAILY JEREMY Sodium Chloride 3 ml 12/21/20 00:00 12/23/20 08:27 0.9 % Sodium Chloride Flush 3 Ml Syringe IVFLUSH Not Given QSHIFT JEREMY Zolpidem Tartrate 5 mg 12/20/20 21:39 Zolpidem Tartrate 5 Mg Tablet PO BEDTIME PRN Insomnia Labs CBC & Chem 7: 12/23/20 06:29 12/23/20 06:29 Microbiology Microbiology Results: Microbiology 12/20/20 20:26 Blood - Venous Blood Culture - Final Staphylococcus aureus 12/20/20 20:18 Blood - Venous Blood Culture - Final Staphylococcus aureus 12/21/20 Unknown Urine clean catch - Clean Catch Midstream Urine Culture - Preliminary Culture in progress. Assessment and Plan (1) Pancytopenia: Status: Acute Assessment and Plan: 46-year-old female with a past medical history of hypertension, anemia, interstitial lung disease, lupus presented to the hospital with a chief complaint of generalized weakness and bony pains. Staph aureus bacteremia of unknown source -repeat cultures -On Vanco, will change to Nafcillin -ID following MILAN--Resolved, Cr 1.74 --> 1.0 Interstitial lung disease--Stable, no other treatment indicated at this time Elevated trop of 17 to 20, no ACS, no further testing indicated echocardiogram showing normal LV function a Transaminitis--d/t new diagnosed Hep C DD X, cholecystitis, hepatitis panel showing hepatitis C infection RUQ ultrasound showing abnormal gallbladder with multiple stones and wall thicke [place] CT Abd\Pel showed spleenomegaly GI input appreciated, chronic anemia, no cholecystitis, supportive treatment the Hepatitis C new diagnosis per patient pending viral load to get treated as OP Pancytopenia--DX Hep C, Lupus, Azathioprine -Negative HIV most recent blood work from 09/2019 within normal values, printed in her chart Pancytopenia---Stable, likely from Hep C. ongoing work up with Hematology: SIEP to look for a myeloma. Check serum free light chain ratio and a beta 2 microglobulin. B12 and folate levels are fine, in fact B12 is high LDH normal. History of lupus Not on meds , to discuss with rheumatology Her Primary Dr Thapa prescribe the Azathioprime, tried to call but never picked up in clinic! Hematuria +3 blood in urine DD X, stones, GN, mixed w GI bleed To check urine electrolytes Evaluate for stone obstruction by imaging Moderate protein malnutrition Add Ensure
[2020-12-23] MEDS: Nafcillin Sodium 2 GM in 0.9 % Sodium Chloride 100 ML IV ×3 (11:32→23:38)
[2020-12-23 12:00] VITALS: BP 104/64; PULSE 110; RESP 19; TEMP 38.1; O2SAT 97
--- NOTE | 2020-12-23 12:14 | P.PNHO_ITS ---
Medical Summary - Medical Summary Date of Service: 12/23/20 Chief complaint: pancytopenia Medical Summary: DIAGNOSIS: Pancytopenia. Abnormal protein. Interval History Interval history: Her blood counts are trending upward toward improvement. Review of Systems - Constitutional Reports anorexia - Cardiovascular Reports fast heart rate - Respiratory Reports cough - Gastrointestinal Reports constipation - Genitourinary Reports other - Musculoskeletal Reports other - Neurologic Reports system reviewed and no additional complaints, except as documented, Reports weakness PMFSH Medical History: Medical History (Last Updated 12/22/20 @ 14:11 by Nevaeh Rizzo MD) Hepatitis C Spleen anomaly Staphylococcus aureus bacteremia Patient : No Family history: reviewed and not pertinent Social History: Social History (Last Reviewed 12/22/20 @ 14:09 by Nevaeh Rizzo MD) Living Situation History: Household Members: None Housing: Apartment Do you presently have visiting nurse or other home services: No Alcohol History: Alcohol intake: never Tobacco History: Smoking Status: Never smoker Smoked in Last 30 Days: No Substance Use History: Use of substances other than those prescribed or required for medical reasons : No Currently Displaying Signs/Symptoms of Drug Intoxication Withdrawal: No Any prior treatment program specific to substance use: No Domestic Abuse History: Have you been hit, kicked, punched, or otherwise hurt by someone within the past year? If so, by whom?: No Do you feel safe in your current relationship?: No Is there a partner from a previous relationship who is making you feel unsafe now?: No Are you made to feel afraid or neglected: No Advance Directives: Advance Directives: No Advance Directives Information Provided: No Homicidal Assessment: Do you have thoughts of harming others: None Do you have a plan to hurt others: No Plan Nutrition Assessment: Recently lost weight without trying: No Eating poorly because of decreased appetite: No Nutrition Risks: No Nutritional Risk Patient : No : No Poor oral hygiene: Yes Occupation Assessmet: service: No Current occupational status: disabled Smoking status: Never smoker Oncology Screenings - Immunizations Pneumoccocal Immunization Status: Up To Date - G8 Geriatric Assessment Change in food intake over past 3 months: Moderate decrease in food intake Weight loss during the last 3 months: Weight loss > 3 kg Mobility: Bed or chair bound Neuropsychological problems: No psychological problems Body Mass Index: 21 to 22 Patient takes > 3 prescription drugs per day: Yes Patient's assessment of health status compared to others: Not as good Patient age: < 80 G8 Score: 7 G8 Risk Level: High risk for early functional decline and reduced survival. Home Medications and Allergies Current Medications: Current Medications Generic Name Dose Route Start Last Admin Trade Name Freq PRN Reason Stop Dose Admin Albuterol/Ipratropium 3 ml 12/20/20 22:06 Albuterol/Iprat 2.5/0.5mg 3 Ml Ampul.Neb INHALE RQ6H PRN Shortness of Breath/Wheezing Bisacodyl 5 mg 12/22/20 21:00 12/22/20 21:33 Bisacodyl 5 Mg Tablet. PO 5 mg BEDTIME JEREMY Administration Sodium Chloride 1,000 mls @ 60 mls/hr 12/21/20 15:15 12/23/20 02:04 Ns IVCONT 60 mls/hr .[id number] JEREMY Administration Nafcillin Sodium 2 gm/ Sodium 100 mls @ 200 mls/hr 12/23/20 10:30 12/23/20 11:32 Chloride IV 200 mls/hr Q6H JEREMY Administration Omeprazole 20 mg 12/21/20 16:30 12/23/20 06:05 Omeprazole 20 Mg Capsule. PO 20 mg BID@0630,1630 JEREMY Administration Oxycodone HCl 5 mg 12/21/20 19:57 12/23/20 11:42 Oxycodone Hcl Immed Release 5 Mg Tablet PO 5 mg Q6H PRN Administration [facility] Consult 1 each 12/21/20 15:12 Consult Rx Vancomycin Dosing MISCELLANE DAILY PRN Consult order Psyllium Hydrophilic Mucilloid 3.4 gm 12/22/20 15:30 12/23/20 08:27 Psyllium Seed 3.4 Gm Powd.Pack PO Not Given DAILY JEREMY Sodium Chloride 3 ml 12/21/20 00:00 12/23/20 08:27 0.9 % Sodium Chloride Flush 3 Ml Syringe IVFLUSH Not Given QSHIFT JEREMY Zolpidem Tartrate 5 mg 12/20/20 21:39 Zolpidem Tartrate 5 Mg Tablet PO BEDTIME PRN Insomnia Allergies Allergy/AdvReac Type Severity Reaction Status Date / Time No Known Allergies Allergy Verified 12/20/20 18:15 Exam Vital signs: Vital Signs Temp 100.5 F H 12/23/20 12:00 Pulse 110 H 12/23/20 12:00 Resp 19 12/23/20 12:00 BP 104/64 12/23/20 12:00 Pulse Ox 97 12/23/20 12:00 Intake & Output 12/22/20 12/23/20 12/23/20 18:59 06:59 18:59 Intake Total 890 / 2427 1537 / 2427 Output Total 1600 / 1600 Balance 890 / 827 -63 / 827 Urine Output (Average ml/kg/hr) 2.75 2.75 Intake: Intake, Oral Amount 620 / 1160 540 / 1160 Intake, IV Amount 270 / 1267 997 / 1267 vancomycin HCL 1,000 mg In 0.9 270 / 270 % Sodium Chloride 250 ml @ 270 mls/hr IV Q24H [facility] Rx#: [id number] 0.9 % Sodium Chloride 1,000 ml 997 / 997 @ 60 mls/hr IVCONT .[id number] [facility] Rx#:[id number] Output: Output, Urine Amount 1600 / 1600 Other: Meal Refused No NPO No Breakfast % Eaten 100% Lunch % Eaten 100% Dinner % Eaten 25% Number of Incontinent Voids 0 Number of Unmeasured Voids 3 0 Number of Bowel Movements 0 Urine Bathroom Bathroom Urine Color Tea Marysol Last Bowel Movement 12/23/20 Weight 48.534 kg Body Mass Index 16.7 - Constitutional Present: no acute distress, moderate distress - Routine HEENT Exam Head: Present: atraumatic, normal inspection ENT: Present: normal oropharynx - Routine Respiratory Exam Present: CTAB - Routine Cardiovascular Exam Cardiovascular: Present: RRR, S1, S2 - Routine Abdominal Exam Present: diminished bowel sounds, normal bowel sounds, soft, tenderness - Routine Rectal Exam Patient deferred: visual exam - Routine Exam Patient deferred: external exam - Routine Skin Exam Present: intact - Detailed Neurological Exam: Coma Scale Eye Opening: Verbal stimuli (3) Data - Labs CBC & Chem 7: 12/23/20 06:29 12/23/20 06:29 Labs: 12/20/20 US abdomen limited Stat 12/20/20 18:41 ECG 12 lead EKG Stat EKG Documentation DIRECTED XR chest 2V Stat 12/20/20 18:45 0.9 % Sodium Chloride [Ns] 1,000 ml IVCONT 999 mls/hr 12/20/20 18:51 Ketorolac Tromethamine [Toradol] 30 mg IVPUSH ONCE ONE methylPREDNISolone Sod Succ/PF [SOLU-MedroL] 125 mg IVPUSH ONCE ONE oxyCODONE HCl Immed Release [Roxicodone] 5 mg PO ONCE ONE 12/20/20 19:07 Basic Metabolic Panel Stat C Reactive Protein Stat Complete Blood Count Auto Diff Stat Creatine Kinase Total Stat Ferritin Stat HCG Quantitative Stat Hold Lav - Possible Hematology Stat Lactate Dehydrogenase Stat Liver Panel Stat Magnesium Stat Procalcitonin Stat SARS-CoV2/FLU/RSV Stat SLIDE REVIEW Stat Troponin-I High Sensitivity Stat 12/20/20 20:10 [id number] Stat 12/20/20 20:14 Add Laboratory Test Stat 12/20/20 20:15 0.9 % Sodium Chloride [Ns] 1,000 ml IVCONT 999 mls/hr 12/20/20 20:18 Lactic Acid Stat Prothrombin Time INR Stat 12/20/20 20:26 Blood Culture X2 [BC] Stat 12/20/20 20:49 cefTRIAXone sodium [Rocephin] 1 gm 0.9 % Sodium Chloride [Ns] 50 ml IV ONCE 12/20/20 21:03 Azithromycin [Zithromax] 500 mg 0.9 % Sodium Chloride [Ns] 250 ml IV ONCE 12/20/20 21:39 Cardiac Diet Acetaminophen [Tylenol] 650 mg PO Q6H PRN 12/20/20 22:00 Enoxaparin Sodium [Lovenox] 40 mg SUBCUT Q24H 12/20/20 22:08 NPO Diet 12/20/20 22:15 0.9 % Sodium Chloride [Ns] 500 ml IV 50 mls/hr 12/20/20 22:17 cefTRIAXone sodium [Rocephin] 1 gm .ROUTE .STK-MED ONE 12/20/20 22:53 Antibody Identification Stat Antigen Identification Stat Direct Hero (CARIDAD) Stat Type and Screen Stat Troponin-I High Sensitivity Stat 12/20/20 23:04 Hepatitis A,B,C Profile Routine 12/20/20 23:43 Azithromycin [Zithromax] 500 mg IV .STK-MED ONE 12/21/20 CT abdomen pelvis wo con Urgent Urine Culture Routine 12/21/20 04:00 methylPREDNISolone Sod Succ/PF [SOLU-MedroL] 40 mg IVPUSH Q8H 12/21/20 04:13 Transfer Order Routine 12/21/20 05:07 UA CC w/rflx Micro + Cult Stat 12/21/20 06:30 Pantoprazole Sodium [Protonix] 40 mg IVPUSH DAILY@0630 12/21/20 07:31 CA echo transthoracic complete Routine 12/21/20 09:25 Basic Metabolic Panel DAILY Complete Blood Count Auto Diff DAILY HIV Ab/Ag Routine IRON PROFILE Routine Magnesium DAILY Prothrombin Time INR DAILY SLIDE REVIEW Routine Vitamin B12 and Folate Routine 12/21/20 11:13 Add Laboratory Test Urgent 12/21/20 12:30 methylPREDNISolone Sod Succ/PF [SOLU-MedroL] 40 mg IVPUSH Q24H 12/21/20 15:14 vancomycin HCL 1,000 mg 0.9 % Sodium Chloride [Ns] 250 ml IV ONCE 12/21/20 15:26 Add Laboratory Test Urgent 12/21/20 16:30 vancomycin HCL 1,000 mg .ROUTE .STK-MED ONE 12/21/20 21:00 cefTRIAXone sodium [Rocephin] 1 gm 0.9 % Sodium Chloride [Ns] 50 ml IV Q24H 12/21/20 21:39 HYDROmorphone HCl [Dilaudid] 0.5 mg IVPUSH Q4H PRN 12/21/20 21:45 cefTRIAXone sodium [Rocephin] 1 gm .ROUTE .STK-MED ONE 12/21/20 22:00 Azithromycin [Zithromax] 500 mg PO Q24H 12/22/20 06:11 Basic Metabolic Panel DAILY@0600 Complete Blood Count Auto Diff Routine Folate Routine Lactate Dehydrogenase Routine Liver Panel Routine Prothrombin Time INR Routine SLIDE REVIEW Routine Vitamin B12 Routine 12/22/20 14:51 [place] Butter/Zinc Oxide Supp [Calmol 4 Supp] 1 supp AZ ONCE ONE 12/22/20 15:07 Add Laboratory Test Routine 12/22/20 15:20 Vancomycin Random Stat 12/22/20 15:49 vancomycin HCL 1,000 mg .ROUTE .STK-MED ONE 12/22/20 16:00 vancomycin HCL 1,000 mg 0.9 % Sodium Chloride [Ns] 250 ml IV Q24H 12/22/20 17:43 Add Laboratory Test Routine 12/22/20 21:55 Drug Screen Urine Routine 12/23/20 06:29 Basic Metabolic Panel DAILY@0600 Complete Blood Count no Diff DAILY@0600 Lactate Dehydrogenase Routine Liver Panel Routine Prothrombin Time INR DAILY@0600 12/23/20 11:25 Nafcillin Sodium 2 gm IV .STK-MED ONE 12/23/20 11:31 Nafcillin Sodium 2 gm IV .STK-MED ONE Laboratory Last Values WBC 2.6 X10*3/uL (4.8-10.8) L 12/23/20 06:29 RBC 2.95 X10*6/uL (4.20-5.50) L 12/23/20 06:29 Hgb 9.4 g/dl (12.0-16.0) L 12/23/20 06:29 Hct 30.5 % (37-47) L D 12/23/20 06:29 MCV 103.4 fL (80-98) H 12/23/20 06:29 MCH 31.9 pg (27.0-33.0) 12/23/20 06:29 MCHC 30.8 g/dl (31.0-35.0) L 12/23/20 06:29 RDW 19.8 % (11.0-16.0) H 12/23/20 06:29 Plt Count 51 X10*3/uL (160-400) L 12/23/20 06:29 MPV Not Reportable 12/23/20 06:29 Immature Gran % (Auto) 0.7 % (0.0-0.4) H 12/22/20 06:11 Neut % (Auto) 80.8 % (45-73) H 12/22/20 06:11 Lymph % (Auto) 13.9 % (20-40) L 12/22/20 06:11 [place] % (Auto) 4.3 % (2-11) 12/22/20 06:11 Eos % (Auto) 0.0 % (0-4) 12/22/20 06:11 Baso % (Auto) 0.3 % (0-2) 12/22/20 06:11 Lymph # (Auto) 0.4 X10*3/uL (1.2-4.9) L 12/22/20 06:11 [place] # (Auto) 0.1 X10*3/uL (0.1-1.2) 12/22/20 06:11 Eos # (Auto) 0.0 X10*3/uL (0.0-0.4) 12/22/20 06:11 Baso # (Auto) 0.0 X10*3/uL (0.0-0.2) 12/22/20 06:11 Abs Immat Gran (auto) 0.02 X10*3/uL (0.00-0.03) 12/22/20 06:11 Absolute Neuts (auto) 2.5 X10*3/uL (2.0-8.3) 12/22/20 06:11 Absolute Nucleated RBC 0.020 X10*3/uL (0.0-0.012) H 12/23/20 06:29 Nucleated RBC % (auto) 0.8 /100WBC (0.0-0.2) H 12/23/20 06:29 Smear Tech's Comments VERIFIED 12/22/20 06:11 Smear Path Review SEE NOTE 12/20/20 19:07 Hold Purple Top SEE NOTE 12/20/20 19:07 PT 13.9 SEC (10.8-13.0) H 12/23/20 06:29 INR 1.2 (0.9-1.1) H 12/23/20 06:29 Sodium 139 mmol/L (135-145) 12/23/20 06:29 Potassium 3.6 mmol/L (3.3-5.1) D 12/23/20 06:29 Chloride 121 mmol/L (96-108) H 12/23/20 06:29 Carbon Dioxide 14 mmol/L (22-29) L 12/23/20 06:29 Anion Gap 8 (12-20) L 12/23/20 06:29 BUN 40 mg/dL (9-16) H 12/23/20 06:29 Creatinine 1.00 mg/dL (0.5-1.4) 12/23/20 06:29 Estim Creat Clear Calc 55.0 12/23/20 06:29 Estimated GFR > 60 12/23/20 06:29 Random Glucose 79 mg/dL (60-115) 12/23/20 06:29 Lactic Acid 0.9 mmol/L (0.5-2.0) 12/20/20 20:18 Calcium 8.8 mg/dL (8.4-10.2) 12/23/20 06:29 Magnesium 1.9 mg/dL (1.6-2.6) 12/21/20 09:25 Iron 65 mcg/dL (30-160) 12/21/20 09:25 TIBC 153 mcg/dL (228-428) L 12/21/20 09:25 % Saturation 42 % (15-50) 12/21/20 09:25 Unsat Iron Binding 88 ug/dL 12/21/20 09:25 Ferritin 635 ng/mL (10-250) H 12/20/20 19:07 Total Bilirubin 0.5 mg/dL (0.0-1.0) 12/23/20 06:29 Direct Bilirubin 0.3 mg/dL (0.0-0.5) 12/23/20 06:29 AST 79 U/L (5-31) H 12/23/20 06:29 ALT 35 U/L (0-31) H 12/23/20 06:29 Alkaline Phosphatase 160 U/L (39-117) H 12/23/20 06:29 Lactate Dehydrogenase 175 U/L (122-220) 12/23/20 06:29 Total Creatine Kinase 22 U/L (26-140) L 12/20/20 19:07 Troponin I High Sens 17.7 ng/L (<3.5-17.0) H 12/20/20 22:53 C-Reactive Protein 5.81 mg/dL (< or = 0.50) H 12/20/20 19:07 Total Protein 8.7 g/dL (6.5-8.0) H 12/23/20 06:29 Albumin 1.7 g/dL (3.5-5.0) L 12/23/20 06:29 Vitamin B12 932 pg/mL (200-900) H 12/22/20 06:11 Folate 6.1 ng/mL (> or = 4.0) 12/22/20 06:11 Procalcitonin 0.22 ng/mL 12/20/20 19:07 Beta HCG, Quant < 2 mIU/mL 12/20/20 19:07 Urine Color MARYSOL 12/21/20 05:07 Urine Appearance HAZY 12/21/20 05:07 Urine pH 6.5 (5.0-8.0) 12/21/20 05:07 Ur Specific [place] 1.015 (1.005-1.025) 12/21/20 05:07 Urine Protein 1+ MG/DL (NEG-TRACE) H 12/21/20 05:07 Urine Glucose (UA) NEG MG/DL (NEG) 12/21/20 05:07 Urine Ketones NEG MG/DL (NEG) 12/21/20 05:07 Urine Blood 3+ (NEG) H 12/21/20 05:07 Urine Nitrite NEG (NEG) 12/21/20 05:07 Ur Leukocyte Esterase 1+ (NEG) H 12/21/20 05:07 Urine RBC 76-150 /HPF (0) H 12/21/20 05:07 Urine WBC 10-14 /HPF (0-4) H 12/21/20 05:07 Ur Squamous Epith Cells 1+ /LPF 12/21/20 05:07 Urine Bacteria 1+ /LPF 12/21/20 05:07 Urine Mucus 1+ /LPF 12/21/20 05:07 Stool Occult Blood POS (NEG) 12/20/20 20:10 Random Vancomycin 13.6 mcg/mL (15-20) L 12/22/20 15:20 Urine Opiates Screen Not Detected (Not Detect) 12/22/20 21:55 Ur Barbiturates Screen Not Detected (Not Detect) 12/22/20 21:55 Ur Phencyclidine Scrn Not Detected (Not Detect) 12/22/20 21:55 Ur Amphetamines Screen Not Detected (Not Detect) 12/22/20 21:55 U Benzodiazepines Scrn Not Detected (Not Detect) 12/22/20 21:55 Urine Cocaine Screen Not Detected (Not Detect) 12/22/20 21:55 U Marijuana (THC) Screen Not Detected (Not Detect) 12/22/20 21:55 Coronavirus (PCR) NEGATIVE (Negative) 12/20/20 19:07 Hepatitis A IgM Ab Nonreactive (Nonreactive) 12/20/20 23:04 Hep Bs Antigen Negative (Negative) 12/20/20 23:04 Hep Bs Antibody REACTIVE (Nonreactive) 12/20/20 23:04 Hep B Core Total Ab Nonreactive (Nonreactive) 12/20/20 23:04 Hepatitis C Ab (EIA) Reactive (Nonreactive) H 12/20/20 23:04 HIV 1&2 Ab/P24 Ag 4thGn Nonreactive (Nonreactive) 12/21/20 09:25 Influenza Type A (PCR) NEGATIVE (Negative) 12/20/20 19:07 Influenza Type B (PCR) NEGATIVE (Negative) 12/20/20 19:07 RSV RNA Qual (PCR) NEGATIVE (Negative) 12/20/20 19:07 Blood Type O Positive 12/20/20 22:53 Antibody Screen POSITIVE 12/20/20 22:53 Antibody Identification Anti-E Warm Auto Antibody 12/20/20 22:53 Antibody Identification Anti-E Warm Auto Antibody 12/20/20 22:53 Antigen Identification E Antigen - NEGATIVE 12/20/20 22:53 Direct Antiglob Test POSITIVE A 12/20/20 22:53 CARIDAD, Polyspecific POSITIVE A 12/20/20 22:53 Crossmatch See Detail 12/20/20 22:53 Blood Bank Comment Technical 12/20/20 22:53 - Imaging Radiologist's impression: ITS Impressions Chest X-Ray 12/20/20 18:41 IMPRESSION: Unfortunately, no prior films are available for comparison. Patchy interstitial/groundglass changes present bilaterally. Findings could represent Covid disease. Some element of this could represent chronic interstitial changes as well and if prior films are available, these would be helpful for comparison. Abdomen Ultrasound 12/20/20 22:30 IMPRESSION: Abnormal gallbladder which is distended containing calculi with significant wall thickening and fluid within the wall. The Frances's sign was negative but based upon appearances, cholecystitis needs to be considered. Abdomen/Pelvis CT 12/21/20 11:00 IMPRESSION: 1. Cholelithiasis. No biliary ductal dilatation or visible gallbladder wall thickening or pericholecystic inflammatory change. Unremarkable pancreas. Liver homogeneous. 2. Enlarged spleen 15 x 14 cm with small subcapsular fluid inferior medial aspect, possibly old hematoma 3.5 x 1.5 x 3.2 cm. Mild ascites. 3. No bowel obstruction or focal inflammatory changes. Small hiatal hernia. 4. Numerous bilateral nonobstructing renal calculi. No hydronephrosis or perinephric stranding. 5. Bibasilar lung fibrotic changes with numerous cysts and honeycombing. Nodular density left medial base 5 mm possibly confluence vascular markings extending beyond field of view. Progress Note: A/P (1) Pancytopenia Start date: 12/23/20 (She is beginning to improve. Will observe on current ther apy.) Status: Acute - Time Spent With Patient Total time spent is greater than 50% in coordination of care (as documented) at patient's floor/unit and/or counseling patient: 15 - 24 minutes
[2020-12-23 15:08] VITALS: BP 104/83; PULSE 110; RESP 18; TEMP 36.5; O2SAT 94
[2020-12-23 19:34] VITALS: BP 110/77; PULSE 100; RESP 18; TEMP 36.8; O2SAT 98
[2020-12-23] MEDS: bisacodyL 5 MG TABLET.DR PO (21:20)
[2020-12-23] MEDS: 0.9 % Sodium Chloride Flush 3 ML SYRINGE IVFLUSH (23:38)
[2020-12-24] VITALS (7 sets, daily range): BP systolic 82–117; BP diastolic 46–78; PULSE 98–116; RESP 17–36; TEMP 37.1–37.7; O2SAT 94–97
[2020-12-24] MEDS: oxyCODONE HCl Immed Release 5 MG TABLET PO ×3 (02:12→20:05)
[2020-12-24] MEDS: Nafcillin Sodium 2 GM in 0.9 % Sodium Chloride 100 ML IV ×3 (04:25→16:38)
[2020-12-24] MEDS: Omeprazole 20 MG CAPSULE.DR PO ×2 (05:34→16:38)
--- NOTE | 2020-12-24 09:01 | P.PNIM_ITS ---
Subjective Subjective Date of Service: 12/24/20 Interval History: Seen in f/u for Staph Aureus bacteremia of unknown source. Generally feels unwell, Review of Systems Gen: no fever Resp: no sob, no cough CV: no chest, no DICKINSON, no leg edema GI: No n/v, no abd pain Neuro: No confusion Physical Exam Vital Signs: Vital Signs: Last Vital Signs Temp 99.2 F 12/24/20 08:00 Pulse 116 H 12/24/20 08:00 Resp 17 12/24/20 08:00 BP 116/78 12/24/20 08:00 Pulse Ox 94 12/24/20 08:00 Body Mass Index 16.7 Const: Other: Constitutional : Alert, oriented, not in distress Neck : Normal inspection, Supple Cardiovascular : RRR, S1 S2, trace bilateral lower extremity edema, No murmur Respiratory : Decrease bilateral air entry, , no wheezes or rhonchi, normal resp effort Gastrointestinal: soft, lax, Normal bowel sounds, Non tender Skin : Warm/Dry, No rash Neurological : Alert & oriented x3, No focal deficit Objective Data Current Medications Generic Name Dose Route Start Last Admin Trade Name Freq PRN Reason Stop Dose Admin Albuterol/Ipratropium 3 ml 12/20/20 22:06 Albuterol/Iprat 2.5/0.5mg 3 Ml Ampul.Neb INHALE RQ6H PRN Shortness of Breath/Wheezing Bisacodyl 5 mg 12/22/20 21:00 12/23/20 21:20 Bisacodyl 5 Mg Tablet. PO 5 mg BEDTIME JEREMY Administration Sodium Chloride 1,000 mls @ 60 mls/hr 12/21/20 15:15 12/23/20 19:09 Ns IVCONT 60 mls/hr .[id number] JEREMY Administration Nafcillin Sodium 2 gm/ Sodium 100 mls @ 200 mls/hr 12/23/20 10:30 12/24/20 04:56 Chloride IV Infused Q6H JEREMY Infusion Omeprazole 20 mg 12/21/20 16:30 12/24/20 05:34 Omeprazole 20 Mg Capsule. PO 20 mg BID@0630,1630 JEREMY Administration Oxycodone HCl 5 mg 12/21/20 19:57 12/24/20 02:12 Oxycodone Hcl Immed Release 5 Mg Tablet PO 5 mg Q6H PRN Administration [facility] Consult 1 each 12/21/20 15:12 Consult Rx Vancomycin Dosing MISCELLANE DAILY PRN Consult order Psyllium Hydrophilic Mucilloid 3.4 gm 12/22/20 15:30 12/23/20 08:27 Psyllium Seed 3.4 Gm Powd.Pack PO Not Given DAILY JEREMY Sodium Chloride 3 ml 12/21/20 00:00 12/23/20 23:38 0.9 % Sodium Chloride Flush 3 Ml Syringe IVFLUSH 3 ml QSHIFT JEREMY Administration Zolpidem Tartrate 5 mg 12/20/20 21:39 Zolpidem Tartrate 5 Mg Tablet PO BEDTIME PRN Insomnia Labs CBC & Chem 7: 12/23/20 06:29 12/23/20 06:29 Microbiology Microbiology Results: Microbiology 12/22/20 09:20 Blood - Venous Blood Culture - Preliminary No growth after 24 hours. 12/22/20 09:14 Blood - Venous Blood Culture - Preliminary No growth after 24 hours. 12/21/20 Unknown Urine clean catch - Clean Catch Midstream Urine Culture - Final 12/20/20 20:26 Blood - Venous Blood Culture - Final Staphylococcus aureus 12/20/20 20:18 Blood - Venous Blood Culture - Final Staphylococcus aureus Assessment and Plan (1) Pancytopenia: Status: Acute Assessment and Plan: 46-year-old female with a past medical history of hypertension, anemia, interstitial lung disease, lupus presented to the hospital with a chief complaint of generalized weakness and bony pains. Staph aureus bacteremia (MSSA) from 12/20 culture, unknown source -repeat cultures 12/22 so far no growth -TTE 12/21 no vegetation -Was on Vanco from 12/22 to 12/23, and changed to Nafcillin -Nafcillin since 12/23, D2 -ID following MILAN--Resolved, Cr 1.74 --> 1.0 (12/23) Interstitial lung disease--Stable, no other treatment indicated at this time Elevated trop of to , no ACS, no further testing indicated echocardiogram showing normal LV function a Transaminitis--d/t new diagnosed Hep C DD X, cholecystitis, hepatitis panel showing hepatitis C infection RUQ ultrasound showing abnormal gallbladder with multiple stones and wall thic kening CT Abd\Pel showed spleenomegaly GI input appreciated, chronic anemia, no cholecystitis, supportive treatment the Hepatitis C new diagnosis per patient Hep C viral load is pending antiviral therapy on outpatient basis Pancytopenia--DX Hep C, Lupus, Azathioprine -Negative HIV most recent blood work from 09/2019 within normal values, printed in her chart Pancytopenia---Stable, likely from Hep C. ongoing work up with Hematology(Dr. Lam): SIEP to look for a myeloma. Serum free light chain ratio and a beta 2 microglobulin. B12 and folate levels are fine, in fact B12 is high LDH normal. History of lupus Not on meds , to discuss with rheumatology Her Primary Dr Thapa prescribe the Azathioprime, tried to call but never picked up in clinic! Hematuria +3 blood in urine DD X, stones, GN, mixed w GI bleed To check urine electrolytes Evaluate for stone obstruction by imaging Moderate protein malnutrition Add Ensure
[2020-12-24 09:28] LABS: Hemoglobin 9.5 g/dl (12.0-16.0); Red Blood Count 2.97 X10*6/uL (4.20-5.50)
[2020-12-24 09:29] LABS: Hematocrit 30.6 % (37-47); Red Cell Distribution Width 19.8 % (11.0-16.0)
[2020-12-24 09:31] LABS: NRBC Pct Auto 1.1 /100WBC (0.0-0.2); Platelet Count 41 X10*3/uL (160-400); White Blood Count 1.9 X10*3/uL (4.8-10.8)
[2020-12-24 10:10] LABS: Anion Gap 9 (12-20); Blood Urea Nitrogen 21 mg/dL (9-16); Calcium 8.2 mg/dL (8.4-10.2); Carbon Dioxide 13 mmol/L (22-29); Chloride 119 mmol/L (96-108); Creatinine Clr Calc Pharmacy 61.8; Estimated Glomerular Filt Rate > 60; Glucose Random 94 mg/dL (60-115); Potassium 3.2 mmol/L (3.3-5.1); Sodium 138 mmol/L (135-145)
[2020-12-24] MEDS: 0.9 % Sodium Chloride 1,000 ML 60 ML IVCONT (12:15)
--- NOTE | 2020-12-24 13:43 | P.PNHO_ITS ---
Medical Summary - Medical Summary Date of Service: 12/24/20 (pancytoenia) Medical Summary: DIAGNOSIS: Pancytopenia. Abnormal protein. Interval History Interval history: Her blood counts are trending upward toward improvement. Review of Systems - Cardiovascular Reports fast heart rate - Musculoskeletal Reports abnormal walking - Integumentary/Breasts Skin/Breast: Reports other - Neurologic Reports system reviewed and no additional complaints, except as documented, Reports weakness, Reports other PMFSH Medical History: Medical History (Last Updated 12/22/20 @ 14:11 by Nevaeh Rizzo MD) Hepatitis C Spleen anomaly Staphylococcus aureus bacteremia Family history: reviewed and not pertinent Social History: Social History (Last Reviewed 12/22/20 @ 14:09 by Nevaeh Rizzo MD) Living Situation History: Household Members: None Housing: Apartment Do you presently have visiting nurse or other home services: No Alcohol History: Alcohol intake: never Tobacco History: Smoking Status: Never smoker Smoked in Last 30 Days: No Substance Use History: Use of substances other than those prescribed or required for medical reasons : No Currently Displaying Signs/Symptoms of Drug Intoxication Withdrawal: No Any prior treatment program specific to substance use: No Domestic Abuse History: Have you been hit, kicked, punched, or otherwise hurt by someone within the past year? If so, by whom?: No Do you feel safe in your current relationship?: No Is there a partner from a previous relationship who is making you feel unsafe now?: No Are you made to feel afraid or neglected: No Advance Directives: Advance Directives: No Advance Directives Information Provided: No Homicidal Assessment: Do you have thoughts of harming others: None Do you have a plan to hurt others: No Plan Nutrition Assessment: Recently lost weight without trying: No Eating poorly because of decreased appetite: No Nutrition Risks: No Nutritional Risk Patient : No : No Poor oral hygiene: Yes Occupation Assessmet: service: No Current occupational status: disabled Smoking status: Never smoker Home Medications and Allergies Current Medications: Current Medications Generic Name Dose Route Start Last Admin Trade Name Freq PRN Reason Stop Dose Admin Albuterol/Ipratropium 3 ml 12/20/20 22:06 Albuterol/Iprat 2.5/0.5mg 3 Ml Ampul.Neb INHALE RQ6H PRN Shortness of Breath/Wheezing Bisacodyl 5 mg 12/22/20 21:00 12/23/20 21:20 Bisacodyl 5 Mg Tablet. PO 5 mg BEDTIME JEREMY Administration Sodium Chloride 1,000 mls @ 60 mls/hr 12/21/20 15:15 12/24/20 12:15 Ns IVCONT 60 mls/hr .[id number] JEREMY Administration Nafcillin Sodium 2 gm/ Sodium 100 mls @ 200 mls/hr 12/23/20 10:30 12/24/20 10:28 Chloride IV Infused Q6H JEREMY Infusion Omeprazole 20 mg 12/21/20 16:30 12/24/20 05:34 Omeprazole 20 Mg Capsule. PO 20 mg BID@0630,1630 JEREMY Administration Oxycodone HCl 5 mg 12/21/20 19:57 12/24/20 09:55 Oxycodone Hcl Immed Release 5 Mg Tablet PO 5 mg Q6H PRN Administration [facility] Consult 1 each 12/21/20 15:12 Consult Rx Vancomycin Dosing MISCELLANE DAILY PRN Consult order Psyllium Hydrophilic Mucilloid 3.4 gm 12/22/20 15:30 12/24/20 09:56 Psyllium Seed 3.4 Gm Powd.Pack PO 3.4 gm DAILY JEREMY Administration Sodium Chloride 3 ml 12/21/20 00:00 12/24/20 09:57 0.9 % Sodium Chloride Flush 3 Ml Syringe IVFLUSH Not Given QSHIFT JEREMY Zolpidem Tartrate 5 mg 12/20/20 21:39 Zolpidem Tartrate 5 Mg Tablet PO BEDTIME PRN Insomnia Allergies Allergy/AdvReac Type Severity Reaction Status Date / Time No Known Allergies Allergy Verified 12/20/20 18:15 Exam Vital signs: Vital Signs Temp 99.3 F 12/24/20 12:00 Pulse 109 H 12/24/20 12:00 Resp 19 12/24/20 12:00 BP 102/64 12/24/20 12:00 Pulse Ox 95 12/24/20 12:00 Intake & Output 12/23/20 12/24/20 12/24/20 18:59 06:59 18:59 Intake Total 560 / 2480 1920 / 2480 1100 / 1100 Output Total 4 / 304 300 / 304 Balance 556 / 2176 1620 / 2176 1100 / 1100 Urine Output (Average ml/kg/hr) 0.00 0.52 0.52 Intake: Intake, Oral Amount 360 / 1080 720 / 1080 Intake, IV Amount 200 / 1400 1200 / 1400 1100 / 1100 Nafcillin Sodium 2 gm In 0.9 % 200 / 400 200 / 400 100 / 100 Sodium Chloride 100 ml @ 200 mls/hr IV Q6H [facility] Rx#: [id number] 0.9 % Sodium Chloride 1,000 ml 1000 / 1000 1000 / 1000 @ 60 mls/hr IVCONT .[id number] [facility] Rx#:[id number] Output: Output, Urine Amount 2 / 302 300 / 302 Output, Stool Amount 2 / 2 Other: Meal Refused No Breakfast % Eaten 0% Lunch % Eaten 0% Number of Unmeasured Voids 2 Urine Bathroom Bedside Commode Urine Color Yellow Yellow Last Bowel Movement 12/23/20 Stool Bathroom Stool Amount Moderate Moderate Stool Color Granda Brown Stool Consistency Soft Mushy Weight 48.534 kg Body Mass Index 16.7 - Constitutional Present: no acute distress, moderate distress - Routine HEENT Exam Head: Present: atraumatic, normal inspection - Routine Respiratory Exam Present: CTAB - Routine Cardiovascular Exam Cardiovascular: Present: RRR, S1, S2 - Routine Abdominal Exam Present: diminished bowel sounds, normal bowel sounds, soft, tenderness - Routine Rectal Exam Patient deferred: visual exam - Routine Exam Patient deferred: external exam - Routine Skin Exam Present: intact - Detailed Neurological Exam: Coma Scale Eye Opening: Verbal stimuli (3) Data - Labs CBC & Chem 7: 12/24/20 09:10 12/24/20 09:10 Labs: 12/20/20 US abdomen limited Stat 12/20/20 18:41 ECG 12 lead EKG Stat EKG Documentation DIRECTED XR chest 2V Stat 12/20/20 18:45 0.9 % Sodium Chloride [Ns] 1,000 ml IVCONT 999 mls/hr 12/20/20 18:51 Ketorolac Tromethamine [Toradol] 30 mg IVPUSH ONCE ONE methylPREDNISolone Sod Succ/PF [SOLU-MedroL] 125 mg IVPUSH ONCE ONE oxyCODONE HCl Immed Release [Roxicodone] 5 mg PO ONCE ONE 12/20/20 19:07 Basic Metabolic Panel Stat C Reactive Protein Stat Complete Blood Count Auto Diff Stat Creatine Kinase Total Stat Ferritin Stat HCG Quantitative Stat Hold Lav - Possible Hematology Stat Lactate Dehydrogenase Stat Liver Panel Stat Magnesium Stat Procalcitonin Stat SARS-CoV2/FLU/RSV Stat SLIDE REVIEW Stat Troponin-I High Sensitivity Stat 12/20/20 20:10 OBSX1 Stat 12/20/20 20:14 Add Laboratory Test Stat 12/20/20 20:15 0.9 % Sodium Chloride [Ns] 1,000 ml IVCONT 999 mls/hr 12/20/20 20:18 Lactic Acid Stat Prothrombin Time INR Stat 12/20/20 20:26 Blood Culture X2 [BC] Stat 12/20/20 20:49 cefTRIAXone sodium [Rocephin] 1 gm 0.9 % Sodium Chloride [Ns] 50 ml IV ONCE 12/20/20 21:03 Azithromycin [Zithromax] 500 mg 0.9 % Sodium Chloride [Ns] 250 ml IV ONCE 12/20/20 21:39 Cardiac Diet Acetaminophen [Tylenol] 650 mg PO Q6H PRN 12/20/20 22:00 Enoxaparin Sodium [Lovenox] 40 mg SUBCUT Q24H 12/20/20 22:08 NPO Diet 12/20/20 22:15 0.9 % Sodium Chloride [Ns] 500 ml IV 50 mls/hr 12/20/20 22:17 cefTRIAXone sodium [Rocephin] 1 gm .ROUTE .STK-MED ONE 12/20/20 22:53 Antibody Identification Stat Antigen Identification Stat Direct Hero (CARIDAD) Stat Type and Screen Stat Troponin-I High Sensitivity Stat 12/20/20 23:04 Hepatitis A,B,C Profile Routine 12/20/20 23:43 Azithromycin [Zithromax] 500 mg IV .STK-MED ONE 12/21/20 CT abdomen pelvis wo con Urgent Urine Culture Routine 12/21/20 04:00 methylPREDNISolone Sod Succ/PF [SOLU-MedroL] 40 mg IVPUSH Q8H 12/21/20 04:13 Transfer Order Routine 12/21/20 05:07 UA CC w/rflx Micro + Cult Stat 12/21/20 06:30 Pantoprazole Sodium [Protonix] 40 mg IVPUSH DAILY@0630 12/21/20 07:31 CA echo transthoracic complete Routine 12/21/20 09:25 Basic Metabolic Panel DAILY Complete Blood Count Auto Diff DAILY HIV Ab/Ag Routine IRON PROFILE Routine Magnesium DAILY Prothrombin Time INR DAILY SLIDE REVIEW Routine Vitamin B12 and Folate Routine 12/21/20 11:13 Add Laboratory Test Urgent 12/21/20 12:30 methylPREDNISolone Sod Succ/PF [SOLU-MedroL] 40 mg IVPUSH Q24H 12/21/20 15:14 vancomycin HCL 1,000 mg 0.9 % Sodium Chloride [Ns] 250 ml IV ONCE 12/21/20 15:26 Add Laboratory Test Urgent 12/21/20 16:30 vancomycin HCL 1,000 mg .ROUTE .STK-MED ONE 12/21/20 21:00 cefTRIAXone sodium [Rocephin] 1 gm 0.9 % Sodium Chloride [Ns] 50 ml IV Q24H 12/21/20 21:39 HYDROmorphone HCl [Dilaudid] 0.5 mg IVPUSH Q4H PRN 12/21/20 21:45 cefTRIAXone sodium [Rocephin] 1 gm .ROUTE .STK-MED ONE 12/21/20 22:00 Azithromycin [Zithromax] 500 mg PO Q24H 12/22/20 06:11 Basic Metabolic Panel DAILY@0600 Complete Blood Count Auto Diff Routine Folate Routine Lactate Dehydrogenase Routine Liver Panel Routine Prothrombin Time INR Routine SLIDE REVIEW Routine Vitamin B12 Routine 12/22/20 14:51 [place] [employer] Butter/Zinc Oxide Supp [Calmol 4 Supp] 1 supp AZ ONCE ONE 12/22/20 15:07 Add Laboratory Test Routine 12/22/20 15:20 Vancomycin Random Stat 12/22/20 15:49 vancomycin HCL 1,000 mg .ROUTE .STK-MED ONE 12/22/20 16:00 vancomycin HCL 1,000 mg 0.9 % Sodium Chloride [Ns] 250 ml IV Q24H 12/22/20 17:43 Add Laboratory Test Routine 12/22/20 21:55 Drug Screen Urine Routine 12/23/20 06:29 Basic Metabolic Panel DAILY@0600 Complete Blood Count no Diff DAILY@0600 Lactate Dehydrogenase Routine Liver Panel Routine Prothrombin Time INR DAILY@0600 12/23/20 11:25 Nafcillin Sodium 2 gm IV .STK-MED ONE 12/23/20 11:31 Nafcillin Sodium 2 gm IV .ST-MED ONE Laboratory Last Values WBC 2.6 X10*3/uL (4.8-10.8) L 12/23/20 06:29 RBC 2.95 X10*6/uL (4.20-5.50) L 12/23/20 06:29 Hgb 9.4 g/dl (12.0-16.0) L 12/23/20 06:29 Hct 30.5 % (37-47) L D 12/23/20 06:29 MCV 103.4 fL (80-98) H 12/23/20 06:29 MCH 31.9 pg (27.0-33.0) 12/23/20 06:29 MCHC 30.8 g/dl (31.0-35.0) L 12/23/20 06:29 RDW 19.8 % (11.0-16.0) H 12/23/20 06:29 Plt Count 51 X10*3/uL (160-400) L 12/23/20 06:29 MPV Not Reportable 12/23/20 06:29 Immature Gran % (Auto) 0.7 % (0.0-0.4) H 12/22/20 06:11 Neut % (Auto) 80.8 % (45-73) H 12/22/20 06:11 Lymph % (Auto) 13.9 % (20-40) L 12/22/20 06:11 [place] % (Auto) 4.3 % (2-11) 12/22/20 06:11 Eos % (Auto) 0.0 % (0-4) 12/22/20 06:11 Baso % (Auto) 0.3 % (0-2) 12/22/20 06:11 Lymph # (Auto) 0.4 X10*3/uL (1.2-4.9) L 12/22/20 06:11 [place] # (Auto) 0.1 X10*3/uL (0.1-1.2) 12/22/20 06:11 Eos # (Auto) 0.0 X10*3/uL (0.0-0.4) 12/22/20 06:11 Baso # (Auto) 0.0 X10*3/uL (0.0-0.2) 12/22/20 06:11 Abs Immat Gran (auto) 0.02 X10*3/uL (0.00-0.03) 12/22/20 06:11 Absolute Neuts (auto) 2.5 X10*3/uL (2.0-8.3) 12/22/20 06:11 Absolute Nucleated RBC 0.020 X10*3/uL (0.0-0.012) H 12/23/20 06:29 Nucleated RBC % (auto) 0.8 /100WBC (0.0-0.2) H 12/23/20 06:29 Smear Tech's Comments VERIFIED 12/22/20 06:11 Smear Path Review SEE NOTE 12/20/20 19:07 Hold Purple Top SEE NOTE 12/20/20 19:07 PT 13.9 SEC (10.8-13.0) H 12/23/20 06:29 INR 1.2 (0.9-1.1) H 12/23/20 06:29 Sodium 139 mmol/L (135-145) 12/23/20 06:29 Potassium 3.6 mmol/L (3.3-5.1) D 12/23/20 06:29 Chloride 121 mmol/L (96-108) H 12/23/20 06:29 Carbon Dioxide 14 mmol/L (22-29) L 12/23/20 06:29 Anion Gap 8 (12-20) L 12/23/20 06:29 BUN 40 mg/dL (9-16) H 12/23/20 06:29 Creatinine 1.00 mg/dL (0.5-1.4) 12/23/20 06:29 Estim Creat Clear Calc 55.0 12/23/20 06:29 Estimated GFR > 60 12/23/20 06:29 Random Glucose 79 mg/dL (60-115) 12/23/20 06:29 Lactic Acid 0.9 mmol/L (0.5-2.0) 12/20/20 20:18 Calcium 8.8 mg/dL (8.4-10.2) 12/23/20 06:29 Magnesium 1.9 mg/dL (1.6-2.6) 12/21/20 09:25 Iron 65 mcg/dL (30-160) 12/21/20 09:25 TIBC 153 mcg/dL (228-428) L 12/21/20 09:25 % Saturation 42 % (15-50) 12/21/20 09:25 Unsat Iron Binding 88 ug/dL 12/21/20 09:25 Ferritin 635 ng/mL (10-250) H 12/20/20 19:07 Total Bilirubin 0.5 mg/dL (0.0-1.0) 12/23/20 06:29 Direct Bilirubin 0.3 mg/dL (0.0-0.5) 12/23/20 06:29 AST 79 U/L (5-31) H 12/23/20 06:29 ALT 35 U/L (0-31) H 12/23/20 06:29 Alkaline Phosphatase 160 U/L (39-117) H 12/23/20 06:29 Lactate Dehydrogenase 175 U/L (122-220) 12/23/20 06:29 Total Creatine Kinase 22 U/L (26-140) L 12/20/20 19:07 Troponin I High Sens 17.7 ng/L (<3.5-17.0) H 12/20/20 22:53 C-Reactive Protein 5.81 mg/dL (< or = 0.50) H 12/20/20 19:07 Total Protein 8.7 g/dL (6.5-8.0) H 12/23/20 06:29 Albumin 1.7 g/dL (3.5-5.0) L 12/23/20 06:29 Vitamin B12 932 pg/mL (200-900) H 12/22/20 06:11 Folate 6.1 ng/mL (> or = 4.0) 12/22/20 06:11 Procalcitonin 0.22 ng/mL 12/20/20 19:07 Beta HCG, Quant < 2 mIU/mL 12/20/20 19:07 Urine Color BILL 12/21/20 05:07 Urine Appearance HAZY 12/21/20 05:07 Urine pH 6.5 (5.0-8.0) 12/21/20 05:07 Ur Specific [place] 1.015 (1.005-1.025) 12/21/20 05:07 Urine Protein 1+ MG/DL (NEG-TRACE) H 12/21/20 05:07 Urine Glucose (UA) NEG MG/DL (NEG) 12/21/20 05:07 Urine Ketones NEG MG/DL (NEG) 12/21/20 05:07 Urine Blood 3+ (NEG) H 12/21/20 05:07 Urine Nitrite NEG (NEG) 12/21/20 05:07 Ur Leukocyte Esterase 1+ (NEG) H 12/21/20 05:07 Urine RBC 76-150 /HPF (0) H 12/21/20 05:07 Urine WBC 10-14 /HPF (0-4) H 12/21/20 05:07 Ur Squamous Epith Cells 1+ /LPF 12/21/20 05:07 Urine Bacteria 1+ /LPF 12/21/20 05:07 Urine Mucus 1+ /LPF 12/21/20 05:07 Stool Occult Blood POS (NEG) 12/20/20 20:10 Random Vancomycin 13.6 mcg/mL (15-20) L 12/22/20 15:20 Urine Opiates Screen Not Detected (Not Detect) 12/22/20 21:55 Ur Barbiturates Screen Not Detected (Not Detect) 12/22/20 21:55 Ur Phencyclidine Scrn Not Detected (Not Detect) 12/22/20 21:55 Ur Amphetamines Screen Not Detected (Not Detect) 12/22/20 21:55 U Benzodiazepines Scrn Not Detected (Not Detect) 12/22/20 21:55 Urine Cocaine Screen Not Detected (Not Detect) 12/22/20 21:55 U Marijuana (THC) Screen Not Detected (Not Detect) 12/22/20 21:55 Coronavirus (PCR) NEGATIVE (Negative) 12/20/20 19:07 Hepatitis A IgM Ab Nonreactive (Nonreactive) 12/20/20 23:04 Hep Bs Antigen Negative (Negative) 12/20/20 23:04 Hep Bs Antibody REACTIVE (Nonreactive) 12/20/20 23:04 Hep B Core Total Ab Nonreactive (Nonreactive) 12/20/20 23:04 Hepatitis C Ab (EIA) Reactive (Nonreactive) H 12/20/20 23:04 HIV 1&2 Ab/P24 Ag 4thGn Nonreactive (Nonreactive) 12/21/20 09:25 Influenza Type A (PCR) NEGATIVE (Negative) 12/20/20 19:07 Influenza Type B (PCR) NEGATIVE (Negative) 12/20/20 19:07 RSV RNA Qual (PCR) NEGATIVE (Negative) 12/20/20 19:07 Blood Type O Positive 12/20/20 22:53 Antibody Screen POSITIVE 12/20/20 22:53 Antibody Identification Anti-E Warm Auto Antibody 12/20/20 22:53 Antibody Identification Anti-E Warm Auto Antibody 12/20/20 22:53 Antigen Identification E Antigen - NEGATIVE 12/20/20 22:53 Direct Antiglob Test POSITIVE A 12/20/20 22:53 CARIDAD, Polyspecific POSITIVE A 12/20/20 22:53 Crossmatch See Detail 12/20/20 22:53 Blood Bank Comment Technical 12/20/20 22:53 - Imaging Radiologist's impression: ITS Impressions Chest X-Ray 12/20/20 18:41 IMPRESSION: Unfortunately, no prior films are available for comparison. Patchy interstitial/groundglass changes present bilaterally. Findings could represent Covid disease. Some element of this could represent chronic interstitial changes as well and if prior films are available, these would be helpful for comparison. Abdomen Ultrasound 12/20/20 22:30 IMPRESSION: Abnormal gallbladder which is distended containing calculi with significant wall thickening and fluid within the wall. The Frances's sign was negative but based upon appearances, cholecystitis needs to be considered. Abdomen/Pelvis CT 12/21/20 11:00 IMPRESSION: 1. Cholelithiasis. No biliary ductal dilatation or visible gallbladder wall thickening or pericholecystic inflammatory change. Unremarkable pancreas. Liver homogeneous. 2. Enlarged spleen 15 x 14 cm with small subcapsular fluid inferior medial aspect, possibly old hematoma 3.5 x 1.5 x 3.2 cm. Mild ascites. 3. No bowel obstruction or focal inflammatory changes. Small hiatal hernia. 4. Numerous bilateral nonobstructing renal calculi. No hydronephrosis or perinephric stranding. 5. Bibasilar lung fibrotic changes with numerous cysts and honeycombing. Nodular density left medial base 5 mm possibly confluence vascular markings extending beyond field of view. Progress Note: A/P (1) Pancytopenia Start date: 12/23/20 (She is beginning to improve. Will observe on current therapy.) Status: Acute - Time Spent With Patient Total time spent is greater than 50% in coordination of care (as documented) at patient's floor/unit and/or counseling patient: 15 - 24 minutes
[2020-12-24 15:46] LABS: Vancomycin Trough 8.4 mcg/mL (10.0-20.0)
[2020-12-25] MEDS: Nafcillin Sodium 2 GM in 0.9 % Sodium Chloride 100 ML IV ×5 (00:01→23:39)
[2020-12-25] MEDS: oxyCODONE HCl Immed Release 5 MG TABLET PO ×3 (03:20→21:27)
[2020-12-25] MEDS: Omeprazole 20 MG CAPSULE.DR PO ×2 (06:21→17:17)
[2020-12-25 06:30] LABS: Hematocrit 25.6 % (37-47); Hemoglobin 8.1 g/dl (12.0-16.0); Mean Corpuscular HGB Conc 31.6 g/dl (31.0-35.0); Mean Corpuscular Hemoglobin 32.4 pg (27.0-33.0); Mean Corpuscular Volume 102.4 fL (80-98); Red Cell Distribution Width 19.9 % (11.0-16.0)
[2020-12-25 06:34] LABS: Anion Gap 6 (12-20); Blood Urea Nitrogen 14 mg/dL (9-16); Calcium 7.7 mg/dL (8.4-10.2); Carbon Dioxide 16 mmol/L (22-29); Chloride 120 mmol/L (96-108); Creatinine Clr Calc Pharmacy 66.2; Estimated Glomerular Filt Rate > 60; Glucose Random 85 mg/dL (60-115); Potassium 3.1 mmol/L (3.3-5.1); Sodium 139 mmol/L (135-145)
[2020-12-25 06:35] LABS: Platelet Count 37 X10*3/uL (160-400); White Blood Count 1.8 X10*3/uL (4.8-10.8)
[2020-12-25 08:00] VITALS: BP 95/55; PULSE 97; RESP 16; TEMP 37.2; O2SAT 98
[2020-12-25] MEDS: 0.9 % Sodium Chloride Flush 3 ML SYRINGE IVFLUSH ×3 (08:31→21:24)
--- NOTE | 2020-12-25 12:04 | P.PNIM_ITS ---
Subjective Subjective Date of Service: 12/25/20 Interval History: the patient was seen and evaluated this morning Laying in bed, feels tired and complaining of pain all over her body She has no PCP, very stressed out Denies any fever, chills or shortness of breath No reported other overnight events. Systemic review: No fever, chills but reports generalized weakness and pain all over her body No chest pain, palpitation No SOB, no coughing Decreased oral intake, No abdominal pain, nausea or vomiting No urinary symptoms No any rash or wounds Physical Exam Vital Signs: Vital Signs: Last Vital Signs Temp 98.9 F 12/25/20 08:00 Pulse 97 12/25/20 08:00 Resp 16 12/25/20 08:00 BP 95/55 L 12/25/20 08:00 Pulse Ox 98 12/25/20 08:00 Body Mass Index 16.7 Const: Other: Constitutional : Alert, oriented, not in distress Neck : Normal inspection, Supple Cardiovascular : RRR, S1 S2, trace bilateral lower extremity edema Respiratory : Decrease bilateral air entry, basal bilateral fine crackles, no wheezes or rhonchi Gastrointestinal: soft, lax, Normal bowel sounds, Non tender Skin : Warm/Dry, No rash Neurological : Alert & oriented x3, No focal deficit Objective Data Current Medications Generic Name Dose Route Start Last Admin Trade Name Freq PRN Reason Stop Dose Admin Albuterol/Ipratropium 3 ml 12/20/20 22:06 Albuterol/Iprat 2.5/0.5mg 3 Ml Ampul.Neb INHALE RQ6H PRN Shortness of Breath/Wheezing Bisacodyl 5 mg 12/22/20 21:00 12/24/20 20:39 Bisacodyl 5 Mg Tablet. PO Not Given BEDTIME JEREMY Nafcillin Sodium 2 gm/ Sodium 100 mls @ 200 mls/hr 12/23/20 10:30 12/25/20 10:35 Chloride IV 100 mls/hr Q6H JEREMY Administration Omeprazole 20 mg 12/21/20 16:30 12/25/20 06:21 Omeprazole 20 Mg Capsule. PO 20 mg BID@0630,1630 JEREMY Administration Oxycodone HCl 5 mg 12/21/20 19:57 12/25/20 10:35 Oxycodone Hcl Immed Release 5 Mg Tablet PO 5 mg Q6H PRN Administration [facility] Consult 1 each 12/21/20 15:12 Consult Rx Vancomycin Dosing MISCELLANE DAILY PRN Consult order Psyllium Hydrophilic Mucilloid 3.4 gm 12/22/20 15:30 12/25/20 10:35 Psyllium Seed 3.4 Gm Powd.Pack PO 3.4 gm DAILY JEREMY Administration Sodium Chloride 3 ml 12/21/20 00:00 12/25/20 08:31 0.9 % Sodium Chloride Flush 3 Ml Syringe IVFLUSH 3 ml QSHIFT JEREMY Administration Zolpidem Tartrate 5 mg 12/20/20 21:39 Zolpidem Tartrate 5 Mg Tablet PO BEDTIME PRN Insomnia Labs CBC & Chem 7: 12/25/20 05:50 12/25/20 05:50 Microbiology Microbiology Results: Microbiology 12/22/20 09:20 Blood - Venous Blood Culture - Preliminary No growth after 48 hours. 12/22/20 09:14 Blood - Venous Blood Culture - Preliminary No growth after 48 hours. 12/21/20 Unknown Urine clean catch - Clean Catch Midstream Urine Culture - Final 12/20/20 20:26 Blood - Venous Blood Culture - Final Staphylococcus aureus 12/20/20 20:18 Blood - Venous Blood Culture - Final Staphylococcus aureus Assessment and Plan (1) Pancytopenia: Status: Acute Assessment and Plan: By the 1 with will be 46-year-old female with a past medical history of hypertension, anemia, interstitial lung disease, lupus presented to the hospital with a chief complaint of generalized weakness and bony pains. Staph aureus bacteremia no clear source of infection identified Started on Nafcillin D4/28 cx MSSA in 2 bottles Repeat blood cutltures negative ID eval. appreciated To place a PICC Pancytopenia most recent blood work from 09/2019 within normal values, printed in her chart -ve HIV infection Ongoing work up normal vitamin B12 and folic acid Pending SPEP, Immunofixation and free light chain Hematology eval appreciated MILAN reolved Monitor creatinine. Avoid nephrotoxins. Interstitial lung disease Does not seem in exacerbation Nebulizers as needed Elevated troponins Patient denies any chest pain Troponins trended down echocardiogram showing normal LV function a Transaminitis DD X, cholecystitis, hepatitis hepatitis panel showing hepatitis C infection RUQ ultrasound showing abnormal gallbladder with multiple stones and wall t hickening CT Abd\Pel showed spleenomegaly GI input appreciated, chronic anemia, no cholecystitis, supportive treatment the Hepatitis C Seems to be previous exposure but no chronic infection +ve Ab negative viral load History of lupus Not on meds , to discuss with rheumatology Her Primary Dr Thapa prescribe the Azathioprime, tried to call but never picked up in clinic! Hematuria +3 blood in urine DD X, stones, GN, mixed w GI bleed To check urine electrolytes Evaluate for stone obstruction by imaging Moderate protein malnutrition Add Ensure DVT prophylaxis SCDs
[2020-12-25 12:16] LABS: Beta-2 Microglobulin, Serum 15.78 mg/L (< OR = 2.51)
[2020-12-25 13:23] VITALS: BP 95/55; PULSE 97; O2SAT 98
--- NOTE | 2020-12-25 14:46 | MHC.CM.PN ---
CM MET WITH PT THIS MORNING AT APPROXIMATELY 0900, AT THAT TIME PT WAS REFUSING STR AND REFUSING TO LET ANYONE INTO HER HOUSE. CM MET WITH PT AGAIN AT APPROXIMATELY 1430 AND PT IS TEARFUL AND CONT'S TO REFUSE STR HOWEVER REPORTS SHE IS NOW WILLING TO HAVE [facility] COME TO HOUSE HOWEVER PT HAS NOT SEEN A PCP IN OVER A YEAR, PT REPORTED SHE IS WILLING TO SEE A PCP AND SHE DOESN'T CARE WHO. THE LAST PCP PT HAD ON FILE WITH NATE/FARIHA IS RYANNE CORTEZ. HOSPITALIST IS PLANNING ON SPEAKING WITH PT TODAY AND CM WILL CONTINUE TO FOLLOW PT AND DISCHARGE NEEDS.
--- NOTE | 2020-12-25 17:00 | HO.PICC ---
PICC Line Insertion NPICC Diagnosis: [STAPH BACTEREMIA ] Indication: [CAREER REPRESENTATIVE ANTIBX] Pertinent Labs: [REVIEWED] Technique: Following informed consent including risks, benefits and alternatives and using sterile technique including cap and mask, sterile gown, glove and drape, the [Right] arm was prepped and draped in the usual sterile fashion of full barrier technique with CHG. Following completion of Carrier Protocol the skin and soft tissues were anesthetized with 1% Lidocaine plain. Using ultrasound guidance, [Right Basilic] vein access was obtained. Over an 0.018 wire through peel-away sheath, a [4Fr Single lumen] PICC line was positioned on first attempt by Karie Ventura RN. Catheter length is [37cm] internal length, [0cm] external length, for a total trimmed length of [37cm]. The procedure was performed in [Ultrasound in Radiology Dept.]. Tip verification was performed by Shirley Elam with Sherlock 3CG. Tip located in SVC. Ultrasound was used to document vein patency and for needle entry. A formal ultrasound picture and cardiac rhythm strip was recorded. Vascular Floor Covering Printer Assistant has released the line for use and it is currently dressed with a StatLock, Tegaderm, and CHG disc. Verification has been performed for blood return and line patency. Arm Circumference: [26cm] Equipment: [employer]grade[] Catheter Type: [4Fr Single Lumen Picc] Lot #: [[id number]
[2020-12-25] MEDS: Potassium Chloride Packet 20 MEQ PACKET 40 MEQ PO (17:17)
[2020-12-25 18:53] VITALS: BP 113/64; PULSE 102; RESP 20; TEMP 37.6; O2SAT 98
[2020-12-25 19:22] LABS: Kappa Light Chain, Free Serum 426.7 mg/L (3.3-19.4); Lambda Light Chain, Free Serum 328.8 mg/L (5.7-26.3)
[2020-12-25] MEDS: bisacodyL 5 MG TABLET.DR PO (21:28)
[2020-12-25] MEDS: hydrOXYzine HCL 25 MG TABLET PO (21:28)
[2020-12-25] MEDS: 0.9 % Sodium Chloride Flush 10 ML SYRINGE 5 ML IVFLUSH (21:31)
[2020-12-25] MEDS: Heparin Sodium,Porcine Flush 50 UNITS, 0.9 % Sodium Chloride Flush 5 ML IVFLUSH (23:39)
[2020-12-25 23:55] VITALS: BP 110/66; PULSE 101; RESP 20; TEMP 37.4; O2SAT 96
[2020-12-26] VITALS (7 sets, daily range): BP systolic 102–109; BP diastolic 60–69; PULSE 97–103; RESP 17–19; TEMP 36.7–37.5; O2SAT 93–98
[2020-12-26] MEDS: Omeprazole 20 MG CAPSULE.DR PO ×2 (05:26→17:55)
[2020-12-26] MEDS: Nafcillin Sodium 2 GM in 0.9 % Sodium Chloride 100 ML IV ×4 (05:26→22:30)
[2020-12-26] MEDS: 0.9 % Sodium Chloride Flush 3 ML SYRINGE IVFLUSH ×3 (08:15→23:49)
[2020-12-26] MEDS: oxyCODONE HCl Immed Release 5 MG TABLET PO ×2 (08:15→16:10)
[2020-12-26] MEDS: 0.9 % Sodium Chloride Flush 10 ML SYRINGE 5 ML IVFLUSH ×3 (11:06→22:31)
--- NOTE | 2020-12-26 13:56 | P.PNIM_ITS ---
Subjective Subjective Date of Service: 12/26/20 Interval History: the patient was seen and evaluated this morning Laying in bed, feels tired and improvement of pain all over her body Denies any fever, chills or shortness of breath No reported other overnight events. Systemic review: No fever, chills but reports generalized weakness and pain all over her body No chest pain, palpitation No SOB, no coughing Decreased oral intake, No abdominal pain, nausea or vomiting No urinary symptoms No any rash or wounds Physical Exam Vital Signs: Vital Signs: Last Vital Signs Temp 99.5 F 12/26/20 11:52 Pulse 103 H 12/26/20 13:09 Resp 19 12/26/20 11:52 BP 107/69 12/26/20 13:09 Pulse Ox 93 12/26/20 13:09 Body Mass Index 16.7 Const: Other: Constitutional : Alert, oriented, not in distress Neck : Normal inspection, Supple Cardiovascular : RRR, S1 S2, trace bilateral lower extremity edema Respiratory : Decrease bilateral air entry, basal bilateral fine crackles, no wheezes or rhonchi Gastrointestinal: soft, lax, Normal bowel sounds, Non tender Skin : Warm/Dry, No rash Neurological : Alert & oriented x3, No focal deficit Objective Data Current Medications Generic Name Dose Route Start Last Admin Trade Name Freq PRN Reason Stop Dose Admin Albuterol/Ipratropium 3 ml 12/20/20 22:06 Albuterol/Iprat 2.5/0.5mg 3 Ml Ampul.Neb INHALE RQ6H PRN Shortness of Breath/Wheezing Bisacodyl 5 mg 12/22/20 21:00 12/25/20 21:28 Bisacodyl 5 Mg Tablet. PO 5 mg BEDTIME JEREMY Administration Hydroxyzine HCl 25 mg 12/25/20 12:06 12/25/20 21:28 Hydroxyzine Hcl 25 Mg Tablet PO 25 mg Q6H PRN Administration anxiety/restlessness Nafcillin Sodium 2 gm/ Sodium 100 mls @ 200 mls/hr 12/23/20 10:30 12/26/20 13:04 Chloride IV Infused Q6H JEREMY Infusion Omeprazole 20 mg 12/21/20 16:30 12/26/20 05:26 Omeprazole 20 Mg Capsule. PO 20 mg BID@0630,1630 JEREMY Administration Oxycodone HCl 5 mg 12/21/20 19:57 12/26/20 08:15 Oxycodone Hcl Immed Release 5 Mg Tablet PO 5 mg Q6H PRN Administration [facility] Consult 1 each 12/21/20 15:12 Consult Rx Vancomycin Dosing MISCELLANE DAILY PRN Consult order Psyllium Hydrophilic Mucilloid 3.4 gm 12/22/20 15:30 12/26/20 08:15 Psyllium Seed 3.4 Gm Powd.Pack PO 3.4 gm DAILY JEREMY Administration Sodium Chloride 3 ml 12/21/20 00:00 12/26/20 08:15 0.9 % Sodium Chloride Flush 3 Ml Syringe IVFLUSH 3 ml QSHIFT JEREMY Administration Sodium Chloride 5 ml 12/25/20 21:00 12/26/20 13:45 0.9 % Sodium Chloride Flush 10 Ml Syringe IVFLUSH 5 ml TID JEREMY Administration Labs CBC & Chem 7: 12/25/20 05:50 12/25/20 05:50 Microbiology Microbiology Results: Microbiology 12/22/20 09:20 Blood - Venous Blood Culture - Preliminary No growth after 48 hours. 12/22/20 09:14 Blood - Venous Blood Culture - Preliminary No growth after 48 hours. 12/21/20 Unknown Urine clean catch - Clean Catch Midstream Urine Culture - Final 12/20/20 20:26 Blood - Venous Blood Culture - Final Staphylococcus aureus 12/20/20 20:18 Blood - Venous Blood Culture - Final Staphylococcus aureus Assessment and Plan (1) Pancytopenia: Status: Acute Assessment and Plan: By the 1 with will be 46-year-old female with a past medical history of hypertension, anemia, interst itial lung disease, lupus presented to the hospital with a chief complaint of generalized weakness and bony pains. Staph aureus bacteremia no clear source of infection identified Started on Nafcillin D5/28 cx MSSA in 2 bottles Repeat blood cutltures negative ID eval. appreciated PICC line placed Pancytopenia most recent blood work from 09/2019 within normal values, printed in her chart -ve HIV infection Ongoing work up normal vitamin B12 and folic acid Pending SPEP, Immunofixation and free light chain Hematology eval appreciated MILAN reolved Monitor creatinine. Avoid nephrotoxins. Interstitial lung disease Does not seem in exacerbation Nebulizers as needed Elevated troponins Patient denies any chest pain Troponins trended down echocardiogram showing normal LV function a Transaminitis DD X, cholecystitis, hepatitis hepatitis panel showing hepatitis C infection RUQ ultrasound showing abnormal gallbladder with multiple stones and wall thickening CT Abd\Pel showed spleenomegaly GI input appreciated, chronic anemia, no cholecystitis, supportive treatment the Hepatitis C Seems to be previous exposure but no chronic infection +ve Ab negative viral load History of lupus Not on meds , to discuss with rheumatology Her Primary Dr Thapa prescribe the Azathioprime, tried to call but never picked up in clinic! Hematuria +3 blood in urine DD X, stones, GN, mixed w GI bleed To check urine electrolytes Evaluate for stone obstruction by imaging Moderate protein malnutrition Add Ensure DVT prophylaxis SCDs
[2020-12-26] MEDS: bisacodyL 5 MG TABLET.DR PO (22:30)
--- NOTE | 2020-12-26 22:58 | PC.NURSE ---
cyber reverse engineer recorded by this RN and interpreted by [facility] JENIFFER Gustafson.
[2020-12-27] VITALS (9 sets, daily range): BP systolic 84–114; BP diastolic 47–67; PULSE 99–110; RESP 16–20; TEMP 36.6–38.8; O2SAT 95–96
[2020-12-27] MEDS: hydrOXYzine HCL 25 MG TABLET PO ×2 (01:33→08:28)
[2020-12-27] MEDS: oxyCODONE HCl Immed Release 5 MG TABLET PO ×4 (02:32→23:47)
[2020-12-27] MEDS: Nafcillin Sodium 2 GM in 0.9 % Sodium Chloride 100 ML IV ×4 (04:43→21:48)
[2020-12-27] MEDS: Omeprazole 20 MG CAPSULE.DR PO ×2 (05:53→16:14)
[2020-12-27 06:22] LABS: Hemoglobin 8.4 g/dl (12.0-16.0); Red Cell Distribution Width 20.7 % (11.0-16.0)
[2020-12-27 06:24] LABS: Hematocrit 26.3 % (37-47); Mean Corpuscular HGB Conc 31.9 g/dl (31.0-35.0); Mean Corpuscular Hemoglobin 32.2 pg (27.0-33.0); Mean Corpuscular Volume 100.8 fL (80-98); Mean Platelet Volume 11.5 fL (9.4-12.3); Red Blood Count 2.61 X10*6/uL (4.20-5.50)
[2020-12-27 06:30] LABS: PLT ABN DIST 1; Platelet Count 25 X10*3/uL (160-400); White Blood Count 1.3 X10*3/uL (4.8-10.8)
[2020-12-27 06:48] LABS: Alanine Aminotransferase 35 U/L (0-31); Albumin Level 1.4 g/dL (3.5-5.0); Alkaline Phosphatase 116 U/L (39-117); Anion Gap 6 (12-20); Aspartate Amino Transferase 79 U/L (5-31); Bilirubin Direct 1.9 mg/dL (0.0-0.5); Bilirubin Total 2.3 mg/dL (0.0-1.0); Blood Urea Nitrogen 9 mg/dL (9-16); Calcium 7.6 mg/dL (8.4-10.2); Carbon Dioxide 16 mmol/L (22-29); Chloride 117 mmol/L (96-108); Creatinine Clr Calc Pharmacy 68.7; Estimated Glomerular Filt Rate > 60; Glucose Random 82 mg/dL (60-115); Sodium 136 mmol/L (135-145); Total Protein 7.4 g/dL (6.5-8.0)
[2020-12-27] MEDS: 0.9 % Sodium Chloride Flush 3 ML SYRINGE IVFLUSH ×2 (08:29→16:12)
[2020-12-27] MEDS: Potassium Chloride ER 20 MEQ TAB.ER.PRT 40 MEQ PO (08:29)
[2020-12-27] MEDS: 0.9 % Sodium Chloride Flush 10 ML SYRINGE 5 ML IVFLUSH ×3 (08:35→22:05)
--- NOTE | 2020-12-27 10:53 | HO.PM.IMPN ---
Subjective Subjective Date of Service: 12/27/20 Interval History: the patient was seen and evaluated this morning Laying in bed, feels tired and lethargic improvement of pain Denies any fever, chills or shortness of breath No reported other overnight events. Systemic review: No fever, chills but reports generalized weakness and pain all over her body No chest pain, palpitation No SOB, no coughing Decreased oral intake, No abdominal pain, nausea or vomiting No urinary symptoms No any rash or wounds Physical Exam Vital Signs: Vital Signs: Last Vital Signs Temp 99.4 F 12/27/20 07:59 Pulse 104 H 12/27/20 10:40 Resp 20 12/27/20 07:59 BP 114/67 12/27/20 10:40 Pulse Ox 96 12/27/20 10:40 Body Mass Index 16.7 Const: Other: Constitutional : Alert, oriented, not in distress Neck : Normal inspection, Supple Cardiovascular : RRR, S1 S2, trace bilateral lower extremity edema Respiratory : Decrease bilateral air entry, basal bilateral fine crackles, no wheezes or rhonchi Gastrointestinal: soft, lax, Normal bowel sounds, Non tender Skin : Warm/Dry, No rash Neurological : Alert & oriented x3, No focal deficit Objective Data Current Medications Generic Name Dose Route Start Last Admin Trade Name Freq PRN Reason Stop Dose Admin Albuterol/Ipratropium 3 ml 12/20/20 22:06 Albuterol/Iprat 2.5/0.5mg 3 Ml Ampul.Neb INHALE RQ6H PRN Shortness of Breath/Wheezing Bisacodyl 5 mg 12/22/20 21:00 12/26/20 22:30 Bisacodyl 5 Mg Tablet. PO 5 mg BEDTIME JEREMY Administration Hydroxyzine HCl 25 mg 12/25/20 12:06 12/27/20 08:28 Hydroxyzine Hcl 25 Mg Tablet PO 25 mg Q6H PRN Administration anxiety/restlessness Nafcillin Sodium 2 gm/ Sodium 100 mls @ 200 mls/hr 12/23/20 10:30 12/27/20 05:36 Chloride IV Infused Q6H JEREMY Infusion Omeprazole 20 mg 12/21/20 16:30 12/27/20 05:53 Omeprazole 20 Mg Capsule. PO 20 mg BID@0630,1630 JEREMY Administration Oxycodone HCl 5 mg 12/27/20 01:32 12/27/20 08:28 Oxycodone Hcl Immed Release 5 Mg Tablet PO 5 mg Q6H PRN Administration Pain, Severe (Pain Scale 7-10) Pharmacy Consult 1 each 12/21/20 15:12 Consult Rx Vancomycin Dosing MISCELLANE DAILY PRN Consult order Psyllium Hydrophilic Mucilloid 3.4 gm 12/22/20 15:30 12/27/20 08:34 Psyllium Seed 3.4 Gm Powd.Pack PO Not Given DAILY JEREMY Sodium Chloride 3 ml 12/21/20 00:00 12/27/20 08:29 0.9 % Sodium Chloride Flush 3 Ml Syringe IVFLUSH 3 ml QSHIFT JEREMY Administration Sodium Chloride 5 ml 12/25/20 21:00 12/27/20 08:35 0.9 % Sodium Chloride Flush 10 Ml Syringe IVFLUSH 5 ml TID JEREMY Administration Labs CBC & Chem 7: 12/27/20 05:57 12/27/20 05:57 Microbiology Microbiology Results: Microbiology 12/22/20 09:20 Blood - Venous Blood Culture - Preliminary No growth after 48 hours. 12/22/20 09:14 Blood - Venous Blood Culture - Preliminary No growth after 48 hours. 12/21/20 Unknown Urine clean catch - Clean Catch Midstream Urine Culture - Final 12/20/20 20:26 Blood - Venous Blood Culture - Final Staphylococcus aureus 12/20/20 20:18 Blood - Venous Blood Culture - Final Staphylococcus aureus Assessment and Plan (1) Pancytopenia: Status: Acute Assessment and Plan: By the 1 with will be 46-year-old female with a past medical history of hypertension, anemia, interstitial lung disease, lupus presented to the hospital with a chief complaint of generalized weakness and bony pains. Staph aureus bacteremia no clear source of infection identified Started on Nafcillin D6/28 cx MSSA in 2 bottles Repeat blood cutltures negative ID eval. appreciated PICC line placed Pancytopenia most recent blood work from 09/2019 within normal values, printed in her chart -ve HIV infection Ongoing work up normal vitamin B12 and folic acid Pending SPEP, Immunofixation and free light chain Hematology eval appreciated MILAN reolved Monitor creatinine. Avoid nephrotoxins. Interstitial lung disease Does not seem in exacerbation Nebulizers as needed Elevated troponins Patient denies any chest pain Troponins trended down echocardiogram showing normal LV function a Transaminitis DD X, cholecystitis, hepatitis hepatitis panel showing hepatitis C infection RUQ ultrasound showing abnormal gallbladder with multiple stones and wall thickening, no signs of acute cholecystitis though CT Abd\Pel showed spleenomegaly GI input appreciated, chronic anemia, no cholecystitis, supportive treatment Hepatitis C Seems to be previous exposure but no chronic infection +ve Ab negative viral load History of lupus Not on meds , to discuss with rheumatology Her Primary Dr Thapa prescribe the Azathioprime, tried to call but never picked up in clinic! Hematuria +3 blood in urine DD X, stones, GN, mixed w GI bleed CT showed numerous bilateral nonobstructing renal calculi Moderate protein malnutrition Add Ensure DVT prophylaxis SCDs
[2020-12-27] MEDS: Acetaminophen 325 MG TABLET 650 MG PO (12:41)
--- NOTE | 2020-12-27 15:54 | MHC.CM.PN ---
NURSE SLABBING MACHINE OPERATOR NOTE ELECTRONIC MEDICAL RECORD REVIEWED CASE DISCUSSED WITH STAFF NURSE AND HOSPITALIST ON AM ROUNDS. HOSPITALIST ASKED IF I WOULD CONTINUE TO SEARCH FOR A SHORT TERM REHAB BED FOR PATIENT FR PHYSICAL THERAPY AND 4 WEEKS OF IV ABX, CLINICAL UPDATES WERE SENT VIA ALL SCRIPTS. HOSPITALIST SPOKE AT LENGTH WITH PATIENT WELL HER AUNT TO ENCOURAGE HER TO GO TO REHAB . VITAL SIGHNS THIS AFTERNON WERE TEMPERATURE 101-102 PULSE 100-110-104, BP 114/67-84/47 CASE DISCUSSED WITH HOSPITALIST AND PATIENT LABS WERE DRAWN , CONTINUES ON IV ABX, SLABBING MACHINE OPERATOR TO CONTINUE TO FOLLOW
[2020-12-27] MEDS: bisacodyL 5 MG TABLET.DR PO (21:48)
[2020-12-28] VITALS (8 sets, daily range): BP systolic 80–110; BP diastolic 49–65; PULSE 95–103; RESP 16–22; TEMP 36.5–37.4; O2SAT 94–98
[2020-12-28] MEDS: Nafcillin Sodium 2 GM in 0.9 % Sodium Chloride 100 ML IV ×4 (04:24→22:13)
[2020-12-28] MEDS: Acetaminophen 325 MG TABLET 650 MG PO (04:59)
[2020-12-28] MEDS: Omeprazole 20 MG CAPSULE.DR PO ×2 (06:11→16:31)
[2020-12-28 07:00] LABS: Anion Gap 6 (12-20); Blood Urea Nitrogen 12 mg/dL (9-16); Calcium 7.8 mg/dL (8.4-10.2); Carbon Dioxide 16 mmol/L (22-29); Chloride 119 mmol/L (96-108); Creatinine Clr Calc Pharmacy 46.2; Estimated Glomerular Filt Rate 49; Glucose Random 77 mg/dL (60-115); Potassium 3.5 mmol/L (3.3-5.1); Sodium 137 mmol/L (135-145)
[2020-12-28 10:17] LABS: Alanine Aminotransferase 30 U/L (0-31); Albumin Level 1.3 g/dL (3.5-5.0); Alkaline Phosphatase 108 U/L (39-117); Aspartate Amino Transferase 69 U/L (5-31); Bilirubin Direct 2.9 mg/dL (0.0-0.5); Bilirubin Total 3.3 mg/dL (0.0-1.0)
[2020-12-28] MEDS: oxyCODONE HCl Immed Release 5 MG TABLET PO ×2 (10:45→17:30)
[2020-12-28] MEDS: 0.9 % Sodium Chloride Flush 10 ML SYRINGE 5 ML IVFLUSH ×3 (10:46→22:12)
--- NOTE | 2020-12-28 10:46 | HO.PM.IMPN ---
Subjective Subjective Date of Service: 12/28/20 Interval History: the patient was seen and evaluated this morning Laying in bed, feels tired but overall better spiked fever yesterday. normal [place] Denies any fever, chills or shortness of breath No reported other overnight events. Systemic review: No fever, chills but reports generalized weakness and pain all over her body No chest pain, palpitation No SOB, no coughing improved oral intake, No abdominal pain, nausea or vomiting No urinary symptoms No any rash or wounds Physical Exam Vital Signs: Vital Signs: Last Vital Signs Temp 98.0 F 12/28/20 07:48 Pulse 97 12/28/20 07:48 Resp 19 12/28/20 07:48 BP 90/52 L 12/28/20 07:48 Pulse Ox 98 12/28/20 07:48 Body Mass Index 16.7 Const: Other: Constitutional : Alert, oriented, not in distress Neck : Normal inspection, Supple Cardiovascular : RRR, S1 S2, trace bilateral lower extremity edema Respiratory : Decrease bilateral air entry, basal bilateral fine crackles, no wheezes or rhonchi Gastrointestinal: soft, lax, Normal bowel sounds, Non tender Skin : Warm/Dry, No rash Neurological : Alert & oriented x3, No focal deficit Objective Data Current Medications Generic Name Dose Route Start Last Admin Trade Name Freq PRN Reason Stop Dose Admin Acetaminophen 650 mg 12/27/20 12:12 12/28/20 04:59 Acetaminophen 325 Mg Tablet PO 650 mg Q6H PRN Administration Fever Bisacodyl 5 mg 12/22/20 21:00 12/27/20 21:48 Bisacodyl 5 Mg Tablet. PO 5 mg BEDTIME JEREMY Administration Hydroxyzine HCl 25 mg 12/25/20 12:06 12/27/20 08:28 Hydroxyzine Hcl 25 Mg Tablet PO 25 mg Q6H PRN Administration anxiety/restlessness Nafcillin Sodium 2 gm/ Sodium 100 mls @ 200 mls/hr 12/23/20 10:30 12/28/20 04:57 Chloride IV Infused Q6H JEREMY Infusion Omeprazole 20 mg 12/21/20 16:30 12/28/20 06:11 Omeprazole 20 Mg Capsule. PO 20 mg BID@0630,1630 JEREMY Administration Oxycodone HCl 5 mg 12/27/20 01:32 12/27/20 23:47 Oxycodone Hcl Immed Release 5 Mg Tablet PO 5 mg Q6H PRN Administration Pain, Severe (Pain Scale 7-10) Pharmacy Consult 1 each 12/21/20 15:12 Consult Rx Vancomycin Dosing MISCELLANE DAILY PRN Consult order Psyllium Hydrophilic Mucilloid 3.4 gm 12/22/20 15:30 12/27/20 08:34 Psyllium Seed 3.4 Gm Powd.Pack PO Not Given DAILY JEREMY Sodium Chloride 3 ml 12/21/20 00:00 12/28/20 01:29 0.9 % Sodium Chloride Flush 3 Ml Syringe IVFLUSH Not Given QSHIFT JEREMY Sodium Chloride 5 ml 12/25/20 21:00 12/27/20 22:05 0.9 % Sodium Chloride Flush 10 Ml Syringe IVFLUSH 5 ml TID JEREMY Administration Labs CBC & Chem 7: 12/27/20 05:57 12/28/20 05:53 Microbiology Microbiology Results: Microbiology 12/22/20 09:20 Blood - Venous Blood Culture - Final No growth after 5 days. 12/22/20 09:14 Blood - Venous Blood Culture - Final No growth after 5 days. 12/21/20 Unknown Urine clean catch - Clean Catch Midstream Urine Culture - Final 12/20/20 20:26 Blood - Venous Blood Culture - Final Staphylococcus aureus 12/20/20 20:18 Blood - Venous Blood Culture - Final Staphylococcus aureus Assessment and Plan (1) Pancytopenia: Status: Acute Assessment and Plan: By the 1 with will be 46-year-old female with a past medical history of hypertension, anemia, interstitial lung disease, lupus presented to the hospital with a chief complaint of generalized weakness and bony pains. Staph aureus bacteremia no clear source of infection identified on Nafcillin D7/28 cx MSSA in 2 bottles newly Repeat blood cutltures pending ID eval. appreciated PICC line placed, plan to dc to finish total 28 days of IV nafcillin Pancytopenia -ve HIV infection Ongoing work up normal vitamin B12 and folic acid Pending SPEP, Immunofixation elevated free light chain Hematology eval appreciated, wait blood results before deciding next step. BM biopsy? Hypotension her baseline BP has been on the lower end of 100/60s Not due to sepsis MILAN reolved Monitor creatinine. Avoid nephrotoxins. Interstitial lung disease Does not seem in exacerbation Nebulizers as needed Elevated troponins Troponins trended down echocardiogram showing normal LV function a Elevated bilirubin Transaminitis Elevated bili 3.3, 2.9 today.. worsening RUQ ultrasound on admission showed abnormal gallbladder with multiple stones and wall thickening, no signs of acute cholecystitis at that point CT Abd\Pel showed spleenomegaly GI input appreciated, chronic anemia, no cholecystitis, supportive treatment To repeat US today, discuss with GI Hepatitis C Seems to be previous exposure but no chronic infection +ve Ab negative viral load History of lupus Not on meds , to discuss with rheumatology Her Primary Dr Thapa prescribe the Azathioprime, tried to call but never picked up in clinic! Hematuria +3 blood in urine DD X, stones, GN, mixed w GI bleed CT showed numerous bilateral nonobstructing renal calculi Moderate protein malnutrition Add Ensure DVT prophylaxis SCDs
--- NOTE | 2020-12-28 14:04 | MHC.CLN ---
F/U 50% AVG PO DIET RX: REGULAR-APPROPRIATE PT RECEIVING 8OZ ENSURE TID PROVIDES 1050KCALS, 60G PROTEIN MONITOR PO INTAKE CLOSELY
[2020-12-28 15:01] LABS: IgA 522 mg/dL (47-310); IgG 5304 mg/dL (600-1640); IgM 379 mg/dL (50-300)
[2020-12-28] MEDS: predniSONE 20 MG TABLET PO (16:31)
[2020-12-28] MEDS: 0.9 % Sodium Chloride 500 ML IV (16:31)
[2020-12-28] MEDS: Escitalopram Oxalate 10 MG TABLET PO (16:31)
--- NOTE | 2020-12-28 16:50 | PM.GIPN ---
Subjective Subjective Date of Service: 12/28/20 Interval History: Patient reports some diffuse upper abdominal discomfort. Eating is fair. Denies N/V/diarrhea. She thinks she feels better than when she first came in the hospital. Physical Exam Vital Signs: Vital Signs: Last Vital Signs Temp 97.7 F 12/28/20 15:40 Pulse 100 12/28/20 15:40 Resp 16 12/28/20 15:40 BP 83/58 L 12/28/20 15:40 Pulse Ox 94 12/28/20 15:40 Body Mass Index 16.7 Const: General: cooperative, comfortable, no acute distress and alert Eyes: Sclerae: sclerae normal GI: Other: Mild diffuse tenderness, nondistended, no mass Inspection: Yes normal to inspection Palpation (GI): Soft to palpation Percussion: Yes normal to percussion Objective Data Labs CBC & Chem 7: 12/27/20 05:57 12/28/20 05:53 Labs: Laboratory Results - last 24 hr 12/22/20 12/28/20 09:13 05:53 Sodium 137 Potassium 3.5 Chloride 119 H Carbon Dioxide 16 L Anion Gap 6 L BUN 12 Creatinine 1.19 Estim Creat Clear Calc 46.2 Estimated GFR 49 Random Glucose 77 Calcium 7.8 L Total Bilirubin 3.3 H Direct Bilirubin 2.9 H AST 69 H ALT 30 Alkaline Phosphatase 108 Total Protein 7.0 Albumin 1.3 L IgG Total 5304 H IgA Total 522 H IgM 379 H MAURICIO Interpretation Imaging US - abdomen: Attestation: I personally reviewed and interpreted this imaging study as follows: Microbiology Microbiology Results: Microbiology 12/27/20 12:37 Blood - Venous Blood Culture - Preliminary No growth after 24 hours. 12/27/20 12:37 Blood - Venous Blood Culture - Preliminary No growth after 24 hours. 12/22/20 09:20 Blood - Venous Blood Culture - Final No growth after 5 days. 12/22/20 09:14 Blood - Venous Blood Culture - Final No growth after 5 days. 12/21/20 Unknown Urine clean catch - Clean Catch Midstream Urine Culture - Final 12/20/20 20:26 Blood - Venous Blood Culture - Final Staphylococcus aureus 12/20/20 20:18 Blood - Venous Blood Culture - Final Staphylococcus aureus Progress Note: A&P Assessment and plan (1) Elevated LFTs: Problem details: Imp: Elevated LFT's with predominantly elevated direct bilirubin and other liver enzymes just minimally elevated. She does not show any signs of liver failure. Her Hep C viral load is negative, The U/S from today shows a normal liver without any sign of mass nor abscess, but the CBD has gone from 4mm on 12/20 to 8mm today. She does have the known gallstones in the GB. Diff dx re: the rising TBill would include a CBD stone given the dilated CBD; Nafcillin-induced cholestasis; cholestasis due to her sepsis and overall illness. Rec: MRCP to assess for a CBD stone; avoid all hepatotoxins, including Acetaminophen; adjust Nafcillin if the w/u is negative and the TBili continues to rise. Follow LFT's. Thanks. Status: Acute Fall Risk Details Current Medications: Current Medications Generic Name Dose Route Start Last Admin Trade Name Freq PRN Reason Stop Dose Admin Acetaminophen 650 mg 12/27/20 12:12 12/28/20 04:59 Acetaminophen 325 Mg Tablet PO 650 mg Q6H PRN Administration Fever Bisacodyl 5 mg 12/28/20 10:50 Bisacodyl 5 Mg Tablet. PO BEDTIME PRN Constipation Escitalopram Oxalate 10 mg 12/28/20 16:15 12/28/20 16:31 Escitalopram Oxalate 10 Mg Tablet PO 10 mg DAILY JEREMY Administration Ferrous Sulfate 324 mg 12/29/20 09:00 Ferrous Sulfate 324 Mg Tablet. PO DAILY JEREMY Hydroxyzine HCl 25 mg 12/25/20 12:06 12/27/20 08:28 Hydroxyzine Hcl 25 Mg Tablet PO 25 mg Q6H PRN Administration anxiety/restlessness Nafcillin Sodium 2 gm/ Sodium 100 mls @ 200 mls/hr 12/23/20 10:30 12/28/20 16:31 Chloride IV 200 mls/hr Q6H JEREMY Administration Potassium Chloride/Sodium Chloride 20 meq in 1,000 mls @ 50 mls/hr 12/28/20 16:15 IVCONT .Q20H JEREMY Sodium Chloride 500 mls @ 500 mls/hr 12/28/20 16:15 12/28/20 16:31 Ns IV 12/28/20 17:14 500 mls/hr .Q1H JEREMY Administration Omeprazole 20 mg 12/21/20 16:30 12/28/20 16:31 Omeprazole 20 Mg Capsule. PO 20 mg BID@0207,4365 JEREMY Administration Oxycodone HCl 5 mg 12/27/20 01:32 12/28/20 10:45 Oxycodone Hcl Immed Release 5 Mg Tablet PO 5 mg Q6H PRN Administration Pain, Severe (Pain Scale 7-10) Prednisone 20 mg 12/28/20 16:10 12/28/20 16:31 Prednisone 20 Mg Tablet PO 20 mg DAILY JEREMY Administration Psyllium Hydrophilic Mucilloid 3.4 gm 12/22/20 15:30 12/28/20 10:45 Psyllium Seed 3.4 Gm Powd.Pack PO 3.4 gm DAILY JEREMY Administration Sodium Chloride 3 ml 12/21/20 00:00 12/28/20 16:32 0.9 % Sodium Chloride Flush 3 Ml Syringe IVFLUSH Not Given QSHIFT JEREMY Sodium Chloride 5 ml 12/25/20 21:00 12/28/20 16:31 0.9 % Sodium Chloride Flush 10 Ml Syringe IVFLUSH 5 ml TID JEREMY Administration Time Spent With Patient Time: Total time spent is greater than 50% in coordination of care (as documented) at patient's floor/unit and/or counseling patient: Time with patient: 15 - 24 minutes Procedures Date of Service Date of Service: 12/28/20
--- NOTE | 2020-12-28 19:33 | PC.NURSE ---
1556 manual blood pressure 86/58. Mild lightheadedness with transferring otherwise asymptomatic. Dr. Burris made aware. Fluids ordered and administered per JAN. Encouraging patient to eat and take in fluids. patient has no complaints at this time. 1610 bp rechecked at 99/65. Patient has no complaints at this time.
[2020-12-29] VITALS (7 sets, daily range): BP systolic 91–103; BP diastolic 50–64; PULSE 87–102; RESP 12–23; TEMP 37–37.7; O2SAT 93–97
[2020-12-29] MEDS: Nafcillin Sodium 2 GM in 0.9 % Sodium Chloride 100 ML IV ×4 (05:10→22:31)
[2020-12-29] MEDS: oxyCODONE HCl Immed Release 5 MG TABLET PO ×3 (05:18→22:31)
[2020-12-29] MEDS: Omeprazole 20 MG CAPSULE.DR PO ×2 (05:18→16:00)
[2020-12-29 06:52] LABS: Hematocrit 24.1 % (37-47)
[2020-12-29 06:54] LABS: Hemoglobin 7.7 g/dl (12.0-16.0); Red Blood Count 2.41 X10*6/uL (4.20-5.50); Red Cell Distribution Width 21.5 % (11.0-16.0)
[2020-12-29 06:57] LABS: INTERNATIONAL NORM RATIO 1.6 (0.9-1.1); Prothrombin Time 18.9 SEC (10.8-13.0)
[2020-12-29 07:16] LABS: Platelet Count 21 X10*3/uL (160-400); White Blood Count 1.5 X10*3/uL (4.8-10.8)
[2020-12-29 07:30] LABS: Alanine Aminotransferase 33 U/L (0-31); Albumin Level 1.3 g/dL (3.5-5.0); Alkaline Phosphatase 100 U/L (39-117); Anion Gap 8 (12-20); Aspartate Amino Transferase 102 U/L (5-31); Bilirubin Direct 3.3 mg/dL (0.0-0.5); Bilirubin Total 3.8 mg/dL (0.0-1.0); Blood Urea Nitrogen 16 mg/dL (9-16); Calcium 7.5 mg/dL (8.4-10.2); Carbon Dioxide 15 mmol/L (22-29); Chloride 118 mmol/L (96-108); Creatinine Clr Calc Pharmacy 36.9; Estimated Glomerular Filt Rate 38; Glucose Random 74 mg/dL (60-115); Potassium 3.7 mmol/L (3.3-5.1); Sodium 137 mmol/L (135-145); Total Protein 7.3 g/dL (6.5-8.0)
[2020-12-29] MEDS: Ferrous Sulfate 324 MG TABLET.DR PO (10:44)
[2020-12-29] MEDS: predniSONE 20 MG TABLET PO (10:44)
[2020-12-29] MEDS: Escitalopram Oxalate 10 MG TABLET PO (10:44)
[2020-12-29] MEDS: 0.9 % Sodium Chloride Flush 10 ML SYRINGE 5 ML IVFLUSH ×2 (10:45→16:01)
--- NOTE | 2020-12-29 11:11 | P.PNIM_ITS ---
Subjective Subjective Date of Service: 12/29/20 Interval History: the patient was seen and evaluated this morning Laying in bed, feels tired but overall better No fever for the last 24 hours Moving her bowels no reported bleeding Denies any fever, chills or shortness of breath No reported other overnight events. Systemic review: No fever, chills but reports generalized weakness and pain all over her body No chest pain, palpitation No SOB, no coughing improved oral intake, No abdominal pain, nausea or vomiting No urinary symptoms No any rash or wounds Physical Exam Vital Signs: Vital Signs: Last Vital Signs Temp 98.8 F 12/29/20 08:00 Pulse 98 12/29/20 08:00 Resp 21 H 12/29/20 08:00 BP 91/54 L 12/29/20 08:00 Pulse Ox 97 12/29/20 08:00 Body Mass Index 16.7 Const: Other: Constitutional : Alert, oriented, not in distress Neck : Normal inspection, Supple Cardiovascular : RRR, S1 S2, trace bilateral lower extremity edema Respiratory : Decrease bilateral air entry, basal bilateral fine crackles, no wheezes or rhonchi Gastrointestinal: soft, lax, Normal bowel sounds, Non tender Skin : Warm/Dry, No rash Neurological : Alert & oriented x3, No focal deficit Objective Data Current Medications Generic Name Dose Route Start Last Admin Trade Name Freq PRN Reason Stop Dose Admin Acetaminophen 650 mg 12/27/20 12:12 12/28/20 04:59 Acetaminophen 325 Mg Tablet PO 650 mg Q6H PRN Administration Fever Bisacodyl 5 mg 12/28/20 10:50 Bisacodyl 5 Mg Tablet. PO BEDTIME PRN Constipation Escitalopram Oxalate 10 mg 12/28/20 16:15 12/29/20 10:44 Escitalopram Oxalate 10 Mg Tablet PO 10 mg DAILY JEREMY Administration Ferrous Sulfate 324 mg 12/29/20 09:00 12/29/20 10:44 Ferrous Sulfate 324 Mg Tablet. PO 324 mg DAILY JEREMY Administration Hydroxyzine HCl 25 mg 12/25/20 12:06 12/27/20 08:28 Hydroxyzine Hcl 25 Mg Tablet PO 25 mg Q6H PRN Administration anxiety/restlessness Nafcillin Sodium 2 gm/ Sodium 100 mls @ 200 mls/hr 12/23/20 10:30 12/29/20 10:45 Chloride IV 200 mls/hr Q6H JEREMY Administration Potassium Chloride/Sodium Chloride 20 meq in 1,000 mls @ 80 mls/hr 12/28/20 16:15 12/29/20 10:44 IVCONT 0 mls/hr .[id number] JEREMY Infusion Omeprazole 20 mg 12/21/20 16:30 12/29/20 05:18 Omeprazole 20 Mg Capsule.Dr PO 20 mg BID@0630,1630 JEREMY Administration Oxycodone HCl 5 mg 12/27/20 01:32 12/29/20 05:18 Oxycodone Hcl Immed Release 5 Mg Tablet PO 5 mg Q6H PRN Administration Pain, Severe (Pain Scale 7-10) Prednisone 20 mg 12/28/20 16:10 12/29/20 10:44 Prednisone 20 Mg Tablet PO 20 mg DAILY JEREMY Administration Psyllium Hydrophilic Mucilloid 3.4 gm 12/22/20 15:30 12/29/20 10:46 Psyllium Seed 3.4 Gm Powd.Pack PO Not Given DAILY JEREMY Sodium Chloride 3 ml 12/21/20 00:00 12/29/20 10:45 0.9 % Sodium Chloride Flush 3 Ml Syringe IVFLUSH Not Given QSHIFT JEREMY Sodium Chloride 5 ml 12/25/20 21:00 12/29/20 10:45 0.9 % Sodium Chloride Flush 10 Ml Syringe IVFLUSH 5 ml TID JEREMY Administration Labs CBC & Chem 7: 12/29/20 06:07 12/29/20 06:07 Microbiology Microbiology Results: Microbiology 12/27/20 12:37 Blood - Venous Blood Culture - Preliminary No growth after 24 hours. 12/27/20 12:37 Blood - Venous Blood Culture - Preliminary No growth after 24 hours. 12/22/20 09:20 Blood - Venous Blood Culture - Final No growth after 5 days. 12/22/20 09:14 Blood - Venous Blood Culture - Final No growth after 5 days. 12/21/20 Unknown Urine clean catch - Clean Catch Midstream Urine Culture - Final 12/20/20 20:26 Blood - Venous Blood Culture - Final Staphylococcus aureus 12/20/20 20:18 Blood - Venous Blood Culture - Final Staphylococcus aureus Assessment and Plan (1) Elevated LFTs: Status: Acute (2) Staphylococcus aureus bacteremia: Status: Acute (3) Spleen anomaly: Status: Acute (4) Pancytopenia: Status: Acute (5) Acute renal failure: Status: Acute (6) Positive fecal occult blood test: Status: Acute (7) Lupus: Status: Acute Assessment and Plan: 46-year-old female with a past medical history of hypertension, anemia, interstitial lung disease, lupus presented to the hospital with a chief compla int of generalized weakness and bony pains. Staph aureus bacteremia no clear source of infection identified on Nafcillin D8/28 cx MSSA in 2 bottles newly Repeat blood cutltures pending ID eval. appreciated PICC line placed, plan to dc to finish total 28 days of IV nafcillin Pancytopenia Numbers looks worse -ve HIV infection normal vitamin B12 and folic acid Pending SPEP, Immunofixation elevated free light chain, elevated Ig's Hematology eval appreciated, wait blood results before deciding next step To arrange for bone Lackey biopsy on Friday, platelets need to be above 50 to consider transfusion Elevated bilirubin Worsening Elevated bili 3.7 today RUQ ultrasound on admission showed abnormal gallbladder with multiple stones and wall thickening, no signs of acute cholecystitis at that point CT Abd\Pel showed spleenomegaly GI input appreciated, chronic anemia, no cholecystitis, supportive treatment Repeated ultrasound showed dilated CBD For MRCP today Dr. Guzman following for possible ERCP MILAN Cr of 1.5 with worening BUN IVF Nephrology consult Monitor creatinine. Avoid nephrotoxins. Hypotension her baseline BP has been on the lower end of 100/60s Not due to sepsis Interstitial lung disease Does not seem in exacerbation Nebulizers as needed Hepatitis C Seems to be previous exposure but no chronic infection +ve Ab negative viral load History of lupus On as a supine, on hold Continue prednisone 20 mg daily Her Primary Dr Thapa prescribe the Azathioprime, tried to call but never picked up in clinic! Hematuria +3 blood in urine DD X, stones, GN, mixed w GI bleed CT showed numerous bilateral nonobstructing renal calculi Moderate protein malnutrition Add Ensure Elevated troponins Troponins trended down echocardiogram showing normal LV function DVT prophylaxis SCDs
--- NOTE | 2020-12-29 14:53 | MHC.CM.PN ---
NURSE CLASSIFIER OPERATOR NOTE ELECTRONIC MEDICAL RECORD REVIEWED ALONG WITH CASE DISCUSSED WITH STAFF NURSE AND HOSPITALIST PER DOCUMENTATION PATIENT WAS ADMITTED WITH ACUTE BACTEREMIA WITH LUPUS, TEMPERATURE TWO DAYS AGO ,CULTURES WERE DRAWN AWAITING FINAL REPORTS CONTINUE IV ANTIBIOTICS ID FOLLOWS PIC LINE PLACED AND MK NEED FCI IV ABX, PANCYTOPENIA PENDING SPEP, IMMUNOFIXATION EVALUATED BY HEMATOLOGY /ONCOLOGY BONE MARROW SCHEDULED FOR ,FRIDAY PLAN CONTINUE IV ABX , PAIN MEDICATIONS, MONITOR ALL LABS AWAITING BONE MARROW BIOPSY ON FRIDAY INIATED REFERRALS TO SEVERAL FACILITIES , THEY ARE FOLLOWING PEND BED AVAILABILITY , HOSPITALIST SPIKE WITH PATIENTS NEXT OF KIN TO ENCOURAGE PATIENT TO GO TO SHORT TERM REHAB. FOR ROD MILL OPERATOR IV ABX 4X QD. CLASSIFIER OPERATOR TO CONTINUE TO FOLLOW
[2020-12-29 15:08] LABS: Glucose Urine UA NEG (NEG); Leukocyte Esterase Urine 1+ (NEG); Nitrite Urine NEG (NEG); PH 6.5 (5.0-8.0); UACC Culture Trigger YES; Urine Blood 1+ (NEG); Urine Ketones NEG (NEG); Urine Protein TRACE MG/DL (NEG-TRACE)
--- NOTE | 2020-12-29 15:08 | MHC.CLN ---
F/U 50% AVG PO DIET RX: REGULAR-APPROPRIATE WILL RE-START 8OZ ENSURE TID PROVIDES 1050KCALS, 60G PROTEIN MONITOR PO INTAKE CLOSELY
--- NOTE | 2020-12-29 15:16 | PM.CNGS ---
History of Present Illness Consult details Consult date: 12/29/20 Narrative: 45-year-old female with multiple medical problems including hepatitis-C, lupus, arthritis and chronic pain, who was admitted last December 19 because of weakness. She had multiple complaints as well as that time including body aches all over as well as abdominal pain. She says she has had for several months. She did not have seemed to have any acute GI issues then. Her LFTs were mildly elevated at that time. Her ultrasound did show gallstones with some gallbladder wall thickening. Clinically however she did not have any symptoms of acute cholecystitis. Her bilirubin has risen to above 3 and I have been consulted because of this as well as the presence of gallstones. She currently denies any acute abdominal pain. She says she does have pain on and off on the abdomen, vague, and not localized to the right upper quadrant for months now. She says that she does have multiple aches and pains all over her body. She denies any nausea or vomiting. She has been tolerating oral intake. Review of Systems Constitutional: Constitutional: Reports malaise, Reports poor appetite and Reports weakness Cardiovascular: Cardiovascular: Denies chest pain Respiratory: Respiratory: Reports chest congestion and Reports cough Gastrointestinal: Gastrointestinal: Denies hematochezia, Denies diarrhea and Denies vomiting Genitourinary: Genitourinary: Denies difficulty voiding Neurologic: Denies behavioral changes, Denies confusion and Reports weakness Psychiatric: Psychiatric: Denies behavioral changes, Denies confusion and Denies tactile hallucinations PMFSH Past Medical History Medical History Hepatitis C Spleen anomaly Staphylococcus aureus bacteremia Family History Family history: reviewed and not pertinent Social History Social History Household Members: None Housing: Apartment Do you presently have visiting nurse or other home services: No Alcohol intake: never Smoking Status: Never smoker Smoked in Last 30 Days: No Use of substances other than those prescribed or required for medical reasons: No Currently Displaying Signs/Symptoms of Drug Intoxication Withdrawal: No Any prior treatment program specific to substance use: No Have you been hit, kicked, punched, or otherwise hurt by someone within the past year? If so, by whom?: No Do you feel safe in your current relationship?: No Is there a partner from a previous relationship who is making you feel unsafe now?: No Are you made to feel afraid or neglected: No Advance Directives: No Advance Directives Information Provided: No Do you have thoughts of harming others: None Do you have a plan to hurt others: No Plan Recently lost weight without trying: No service: No Current occupational status: disabled Meds Allergies Allergy/AdvReac Type Severity Reaction Status Date / Time No Known Allergies Allergy Verified 12/20/20 18:15 Active Medications: Current Medications Generic Name Dose Route Start Last Admin Trade Name Freq PRN Reason Stop Dose Admin Acetaminophen 650 mg 12/27/20 12:12 12/28/20 04:59 Acetaminophen 325 Mg Tablet PO 650 mg Q6H PRN Administration Fever Bisacodyl 5 mg 12/28/20 10:50 Bisacodyl 5 Mg Tablet. PO BEDTIME PRN Constipation Escitalopram Oxalate 10 mg 12/28/20 16:15 12/29/20 10:44 Escitalopram Oxalate 10 Mg Tablet PO 10 mg DAILY JEREMY Administration Ferrous Sulfate 324 mg 12/29/20 09:00 12/29/20 10:44 Ferrous Sulfate 324 Mg Tablet. PO 324 mg DAILY JEREMY Administration Hydroxyzine HCl 25 mg 12/25/20 12:06 12/27/20 08:28 Hydroxyzine Hcl 25 Mg Tablet PO 25 mg Q6H PRN Administration anxiety/restlessness Nafcillin Sodium 2 gm/ Sodium 100 mls @ 200 mls/hr 12/23/20 10:30 12/29/20 11:50 Chloride IV Infused Q6H JEREMY Infusion Potassium Chloride/Sodium Chloride 20 meq in 1,000 mls @ 80 mls/hr 12/28/20 16:15 12/29/20 14:51 IVCONT 50 mls/hr .[id number] JEREMY Administration Omeprazole 20 mg 12/21/20 16:30 12/29/20 05:18 Omeprazole 20 Mg Capsule. PO 20 mg BID@0630,1630 JEREMY Administration Oxycodone HCl 5 mg 12/27/20 01:32 12/29/20 05:18 Oxycodone Hcl Immed Release 5 Mg Tablet PO 5 mg Q6H PRN Administration Pain, Severe (Pain Scale 7-10) Prednisone 20 mg 12/28/20 16:10 12/29/20 10:44 Prednisone 20 Mg Tablet PO 20 mg DAILY JEREMY Administration Psyllium Hydrophilic Mucilloid 3.4 gm 12/22/20 15:30 12/29/20 10:46 Psyllium Seed 3.4 Gm Powd.Pack PO Not Given DAILY JEREMY Sodium Chloride 3 ml 12/21/20 00:00 12/29/20 10:45 0.9 % Sodium Chloride Flush 3 Ml Syringe IVFLUSH Not Given QSHIFT JEREMY Sodium Chloride 5 ml 12/25/20 21:00 12/29/20 10:45 0.9 % Sodium Chloride Flush 10 Ml Syringe IVFLUSH 5 ml TID JEREMY Administration Home Medications Medication Instructions Recorded Confirmed Last Taken Type azathioprine [Azasan] 1 tab PO BID 12/28/20 12/28/20 Unknown History cholecalciferol (vitamin D3) 1 tab PO DAILY 12/28/20 12/28/20 Unknown History citalopram 1 tab PO DAILY 12/28/20 12/28/20 Unknown History ferrous sulfate 1 tab PO DAILY 12/28/20 12/28/20 Unknown History omeprazole 1 cap PO DAILY 12/28/20 12/28/20 Unknown History prednisone 1 tab PO DAILY 12/28/20 12/28/20 Unknown History trazodone 1 tab PO BEDTIME PRN 12/28/20 12/28/20 Unknown History Physical Exam Vital Signs: Vital Signs: Last Vital Signs Temp 98.7 F 12/29/20 11:51 Pulse 102 H 12/29/20 11:51 Resp 21 H 12/29/20 11:51 BP 91/50 L 12/29/20 11:51 Pulse Ox 97 12/29/20 11:51 Body Mass Index 16.7 Const: General: No confusion Orientation/consciousness: No confusion Neck: Lymphatic: lymphadenopathy not noted Resp: Other: Appears a little short of breath Cardio: Rate: regular rate GI: Other: No Farnces sign Palpation (GI): Soft to palpation, not firm, nontender and no guarding Neuro: General: No confusion Extrem: General: Yes capillary refill normal Results Labs Result diagrams: 12/29/20 06:07 12/29/20 06:07 Labs: Abnormal lab results 12/29/20 12/29/20 12/29/20 Range/Units 06:07 06:07 06:07 WBC 1.5 L (4.8-10.8) X10*3/uL RBC 2.41 L (4.20-5.50) X10*6/uL Hgb 7.7 L (12.0-16.0) g/dl Hct 24.1 L (37-47) % MCV 100.0 H (80-98) fL RDW 21.5 H (11.0-16.0) % Plt Count 21 L (160-400) X10*3/uL PT 18.9 H D (10.8-13.0) SEC INR 1.6 H (0.9-1.1) Chloride 118 H (96-108) mmol/L Carbon Dioxide 15 L (22-29) mmol/L Anion Gap 8 L (12-20) Creatinine 1.49 H (0.5-1.4) mg/dL Calcium 7.5 L (8.4-10.2) mg/dL Total Bilirubin 3.8 H (0.0-1.0) mg/dL Direct Bilirubin 3.3 H (0.0-0.5) mg/dL AST 102 H (5-31) U/L ALT 33 H (0-31) U/L Albumin 1.3 L (3.5-5.0) g/dL Direct Antiglob Test CARIDAD, Polyspecific Crossmatch (AHG) 12/29/20 Range/Units 06:08 WBC (4.8-10.8) X10*3/uL RBC (4.20-5.50) X10*6/uL Hgb (12.0-16.0) g/dl Hct (37-47) % MCV (80-98) fL RDW (11.0-16.0) % Plt Count (160-400) X10*3/uL PT (10.8-13.0) SEC INR (0.9-1.1) Chloride (96-108) mmol/L Carbon Dioxide (22-29) mmol/L Anion Gap (12-20) Creatinine (0.5-1.4) mg/dL Calcium (8.4-10.2) mg/dL Total Bilirubin (0.0-1.0) mg/dL Direct Bilirubin (0.0-0.5) mg/dL AST (5-31) U/L ALT (0-31) U/L Albumin (3.5-5.0) g/dL Direct Antiglob Test POSITIVE A CAIRDAD, Polyspecific POSITIVE A Crossmatch (AHG) See Detail Short CBC 12/29/20 Range/Units 06:07 WBC 1.5 L (4.8-10.8) X10*3/uL Hgb 7.7 L (12.0-16.0) g/dl Hct 24.1 L (37-47) % Plt Count 21 L (160-400) X10*3/uL BMP 12/29/20 06:07 Sodium 137 Potassium 3.7 Chloride 118 H Carbon Dioxide 15 L BUN 16 Creatinine 1.49 H Calcium 7.5 L Liver Function 12/29/20 Range/Units 06:07 Total Bilirubin 3.8 H (0.0-1.0) mg/dL Direct Bilirubin 3.3 H (0.0-0.5) mg/dL AST 102 H (5-31) U/L ALT 33 H (0-31) U/L Alkaline Phosphatase 100 (39-117) U/L Albumin 1.3 L (3.5-5.0) g/dL Urine 12/21/20 Range/Units 05:07 Urine Color BILL Urine Appearance HAZY Urine pH 6.5 (5.0-8.0) Ur Specific [place] 1.015 (1.005-1.025) Urine Protein 1+ H (NEG-TRACE) MG/DL Urine Glucose (UA) NEG (NEG) MG/DL All other labs normal. Assessment and Plan (1) Elevated LFTs: Status: Acute She has abnormal LFTs, with elevated bilirubin at this time. She does have gallstones on imaging studies. Clinically she does not have any acute cholecystitis. She does not have any significant pain or tenderness and right upper quadrant. Furthermore, she does not have any acute pain. I am uncertain as to whether her abnormal LFTs are secondary to her gallstones at this time. He may have a primary parenchymal issue as well. Her MRCP although not a good study because of motion artifact, did not show any obvious CBD stones. I do not feel that she requires cholecystectomy at this time. Her LFTs should be followed closely. She does have other multiple medical issues as well. I will follow along closely while she is in the hospital. Her abdominal exam is otherwise very benign. Procedures Date of Service Date of Service: 12/29/20
[2020-12-29 15:17] LABS: Prot Elec - Albumin 2.2 g/dL (3.8-4.8); Prot Elec - Alpha1 0.3 g/dL (0.2-0.3); Prot Elec - Alpha2 0.4 g/dL (0.5-0.9); Prot Elec - Beta 1 0.4 g/dL (0.4-0.6); Prot Elec - Beta 2 0.9 g/dL (0.2-0.5); Prot Elec - Gamma 4.7 g/dL (0.8-1.7); Prot Elec - Total Protein 8.8 g/dL (6.1-8.1)
[2020-12-29 15:17] LABS: Appearance Urine HAZY; Color Urine YELLOW
[2020-12-29 15:25] LABS: Bacteria Urine 1+ /LPF; Squamous Epithelial Cell Urine 3+ /LPF; Triple Phosphate Crystal Urine 1+ /LPF
[2020-12-29] MEDS: 0.9 % Sodium Chloride Flush 3 ML SYRINGE IVFLUSH ×2 (22:31→23:51)
[2020-12-30] VITALS (8 sets, daily range): BP systolic 92–106; BP diastolic 52–66; PULSE 95–102; RESP 18–34; TEMP 36.6–38.3; O2SAT 92–99
[2020-12-30] MEDS: oxyCODONE HCl Immed Release 5 MG TABLET PO ×3 (00:35→16:55)
--- NOTE | 2020-12-30 02:50 | PC.NURSE ---
telepack being monitored by [facility] RN
--- NOTE | 2020-12-30 05:45 | CONS_ITS ---
DATE OF SERVICE: 12/29/2020 REASON FOR CONSULTATION: Consult requested by the Medical Team to evaluate and help in management of patient with renal insufficiency. HISTORY OF PRESENT ILLNESS: The patient is a 45-year-old female with past medical history of hypertension, history of systemic lupus erythematosus, anemia, interstitial lung disease, who presented to the hospital with complaint of generalized weakness for about 4 days. She has been having body aches all over. This has been chronic and has been increasing in severity. She reports dry cough, but there is no fever or chills. There is no numbness or tingling. The patient was evaluated in the ER, and her COVID was negative. She was given Solu-Medrol for concerns of interstitial lung disease and was admitted to the hospital. PAST MEDICAL HISTORY: History of systemic lupus erythematosus, history of hypertension, anemia, interstitial lung disease. There is history of mild chronic kidney disease in this patient. SOCIAL HISTORY: The patient does not smoke. Does not drink alcohol. Does not use drugs. ALLERGIES: THE PATIENT HAS NO KNOWN DRUG ALLERGIES. MEDICATIONS: Nafcillin 2 g q.6 hours hourly, IV fluids with potassium chloride, omeprazole, Metamucil, Lexapro, ferrous sulfate, prednisone 20 mg daily. REVIEW OF SYSTEMS: As noted above. Other systems were reviewed and were negative. PHYSICAL EXAMINATION: GENERAL: The patient is resting in the bed, awake, able to follow commands. She is in some generalized pain. VITAL SIGNS: Blood pressure 91/54, pulse 98, afebrile. HEENT: Shows pupils equal, round, and bilaterally reactive to light. No jugular venous distention is noted. NECK: Supple. CARDIOVASCULAR SYSTEM: S1, S2 without rub. RESPIRATORY SYSTEM: Decreased in the bases with basilar crepitation. ABDOMEN: Soft, nontender. Bowel sounds normal. EXTREMITIES: Showed trace bilateral edema. NEURO: Essentially nonfocal. LABORATORY DATA: Labs done today; sodium 137, potassium 3.7, chloride 118, CO2 of 15, BUN 16, creatinine 1.49. Anion gap was 8, glucose 74, calcium 7.5, total bilirubin 3.8, albumin 1.3. Urinalysis shows hazy urine, specific gravity 1.020, pH 6.5, glucose negative, ketone negative, blood 1+, rbc's 1 to 4, wbc's 5 to 9. Serological workup shows hep C negative. Hep B antigen was negative. IMPRESSION: 1. A 45-year-old female with lupus, with acute kidney injury. Acute kidney injury in this patient is likely secondary to prerenal azotemia. She has not been taking adequate amount of p.o. fluids. Obstruction needs to be ruled out on this patient. She does have Staph aureus bacteremia. It is unclear if she has infection-induced acute GN. She is also on aspirin. We need to rule out interstitial disease. It is unclear if she has lupus-related renal disease at this juncture. 2. Baseline stage II CKD. 3. Staph aureus bacteremia. 4. Pancytopenia. 5. Severe hypoalbuminemia, likely due to malnutrition. I doubt the patient has nephrotic syndrome as a reason for her severe hypoalbuminemia. 6. Interstitial lung disease in the setting of systemic lupus erythematosus. RECOMMENDATIONS: At this juncture, I would recommend checking spot urine for electrolytes, protein, and creatinine. We will assess the protein-creatinine ratio. In the meantime, she should avoid using nephrotoxic agents and continue with antibiotics as ordered. I will check urine eosinophil levels on this patient. The patient did have CT scan of the abdomen and pelvis without contrast and there was no hydronephrosis. I will do complement levels C3 and C4 on this patient. The patient is on prednisone, which can cause disproportionate elevation of BUN compared to creatinine, and we will monitor it closely. Thank you for allowing me to participate in the medical management of the patient. MD ELENI Radford/GRICELDA / [id number]
[2020-12-30] MEDS: Nafcillin Sodium 2 GM in 0.9 % Sodium Chloride 100 ML IV (06:27)
[2020-12-30] MEDS: Omeprazole 20 MG CAPSULE.DR PO ×2 (06:31→17:05)
[2020-12-30 07:53] LABS: Red Blood Count 2.52 X10*6/uL (4.20-5.50); Red Cell Distribution Width 22.6 % (11.0-16.0)
[2020-12-30 07:55] LABS: Hematocrit 25.4 % (37-47); Hemoglobin 8.1 g/dl (12.0-16.0); Mean Corpuscular HGB Conc 31.9 g/dl (31.0-35.0); Mean Corpuscular Hemoglobin 32.1 pg (27.0-33.0); Mean Corpuscular Volume 100.8 fL (80-98)
[2020-12-30 08:03] LABS: NRBC Pct Auto 1.2 /100WBC (0.0-0.2); PLT ABN DIST 1; Platelet Count 24 X10*3/uL (160-400); White Blood Count 1.7 X10*3/uL (4.8-10.8)
[2020-12-30 08:32] LABS: Alanine Aminotransferase 101 U/L (0-31); Albumin Level 1.3 g/dL (3.5-5.0); Alkaline Phosphatase 96 U/L (39-117); Anion Gap 11 (12-20); Aspartate Amino Transferase 490 U/L (5-31); Bilirubin Direct 3.9 mg/dL (0.0-0.5); Bilirubin Total 4.7 mg/dL (0.0-1.0); Blood Urea Nitrogen 22 mg/dL (9-16); Carbon Dioxide 12 mmol/L (22-29); Chloride 116 mmol/L (96-108); Estimated Glomerular Filt Rate 30; Glucose Random 78 mg/dL (60-115); Potassium 3.8 mmol/L (3.3-5.1); Sodium 135 mmol/L (135-145); Total Protein 7.2 g/dL (6.5-8.0)
[2020-12-30 08:38] LABS: Calcium 7.1 mg/dL (8.4-10.2)
[2020-12-30] MEDS: Ferrous Sulfate 324 MG TABLET.DR PO (09:05)
[2020-12-30] MEDS: Escitalopram Oxalate 10 MG TABLET PO (09:05)
[2020-12-30] MEDS: 0.9 % Sodium Chloride 500 ML IV (09:05)
[2020-12-30] MEDS: predniSONE 20 MG TABLET PO (09:05)
[2020-12-30 10:27] LABS: Lactic Acid 2.8 mmol/L (0.5-2.0)
--- NOTE | 2020-12-30 10:48 | P.PNGS_ITS ---
Subjective Subjective Date of Service: 12/30/20 Interval history: says she has pain all over as baseline - c/o leg/arm/joint pains, back pain, abdominal pain no vomitting Physical Exam Vital Signs: Vital Signs: Last Vital Signs Temp 100.9 F H 12/30/20 07:17 Pulse 102 H 12/30/20 07:17 Resp 22 H 12/30/20 07:17 BP 95/54 L 12/30/20 07:17 Pulse Ox 97 12/30/20 07:17 Body Mass Index 16.7 Chemistry 12/28/20 12/29/20 12/30/20 05:53 06:07 07:06 Sodium 137 137 135 Potassium 3.5 3.7 3.8 Carbon Dioxide 16 L 15 L 12 L BUN 12 16 22 H Creatinine 1.19 1.49 H 1.83 H Calcium 7.8 L 7.5 L 7.1 L Hematology 12/29/20 12/30/20 06:07 07:06 WBC 1.5 L 1.7 L Hgb 7.7 L 8.1 L Plt Count 21 L 24 L Urinalysis 12/29/20 14:56 Urine Color YELLOW Urine Appearance HAZY Urine pH 6.5 Ur Specific Gravit y 1.020 Urine Protein TRACE Urine Glucose (UA) NEG Urine Ketones NEG Urine Blood 1+ H Urine Nitrite NEG Ur Leukocyte Raisa ase 1+ H Urine RBC 1-4 Urine WBC 5-9 H Ur Squamous Epith Cells 3+ Const: Other: sitting on recliner General: no acute distress Resp: Effort & Inspection: normal respiratory effort Cardio: Rhythm: regular rhythm GI: Other: abd soft, no obvious tenderness to palpation Progress Note: A&P Assessment and plan (1) Elevated LFTs: Status: Acute Assessment and Plan: bili continues to rise exam/clinical picture not c/w acute cholecystitis; pain has been chronic WBC low primary liver parenchymal disease causing elevated LFTs MRCP with motion artifact, but no obvious CBD stones adomen benign Fall Risk Details Current Medications: Current Medications Generic Name Dose Route Start Last Admin Trade Name Freq PRN Reason Stop Dose Admin Acetaminophen 650 mg 12/27/20 12:12 12/28/20 04:59 Acetaminophen 325 Mg Tablet PO 650 mg Q6H PRN Administration Fever Bisacodyl 5 mg 12/28/20 10:50 Bisacodyl 5 Mg Tablet. PO BEDTIME PRN Constipation Escitalopram Oxalate 10 mg 12/28/20 16:15 12/30/20 09:05 Escitalopram Oxalate 10 Mg Tablet PO 10 mg DAILY [facility] Administration Ferrous Sulfate 324 mg 12/29/20 09:00 12/30/20 09:05 Ferrous Sulfate 324 Mg Tablet. PO 324 mg DAILY JEREMY Administration Hydroxyzine HCl 25 mg 12/25/20 12:06 12/27/20 08:28 Hydroxyzine Hcl 25 Mg Tablet PO 25 mg Q6H PRN Administration anxiety/restlessness Potassium Chloride/Sodium Chloride 20 meq in 1,000 mls @ 80 mls/hr 12/28/20 16:15 12/30/20 01:05 IVCONT Not Given .[id number] [facility] Cefazolin Sodium 1 gm/ Sodium 50 mls @ 100 mls/hr 12/30/20 11:00 Chloride IV Q8H [facility] Omeprazole 20 mg 12/21/20 16:30 12/30/20 06:31 Omeprazole 20 Mg Capsule. PO 20 mg BID@0630,1630 [facility] Administration Oxycodone HCl 5 mg 12/27/20 01:32 12/30/20 09:04 Oxycodone Hcl Immed Release 5 Mg Tablet PO 5 mg Q6H PRN Administration Pain, Severe (Pain Scale 7-10) Prednisone 20 mg 12/28/20 16:10 12/30/20 09:05 Prednisone 20 Mg Tablet PO 20 mg DAILY [facility] Administration Psyllium Hydrophilic Mucilloid 3.4 gm 12/22/20 15:30 12/30/20 09:05 Psyllium Seed 3.4 Gm Powd.Pack PO 3.4 gm DAILY [facility] Administration Sodium Chloride 3 ml 12/21/20 00:00 12/30/20 09:05 0.9 % Sodium Chloride Flush 3 Ml Syringe IVFLUSH Not Given QSHIFT JEREMY Sodium Chloride 5 ml 12/25/20 21:00 12/30/20 09:05 0.9 % Sodium Chloride Flush 10 Ml Syringe IVFLUSH Not Given TID JEREMY Time Spent With Patient Time: Total time spent is greater than 50% in coordination of care (as documented) at patient's floor/unit and/or counseling patient: Time with patient: 15 - 24 minutes Procedures Date of Service Date of Service: 12/30/20
[2020-12-30 11:24] LABS: Reflex Lactate? Lactic Acid Added
--- NOTE | 2020-12-30 11:33 | P.PNIM_ITS ---
Subjective Subjective Date of Service: 12/30/20 Interval History: the patient was seen and evaluated this morning Looks more tired and confused this morning Spiked fever again this morning with sepsis picture Moving her bowels no reported bleeding Denies any fever, chills or shortness of breath No reported other overnight events. Systemic review: No fever, chills but reports generalized weakness and pain all over her body No chest pain, palpitation No SOB, no coughing improved oral intake, No abdominal pain, nausea or vomiting No urinary symptoms No any rash or wounds Physical Exam Vital Signs: Vital Signs: Last Vital Signs Temp 100.9 F H 12/30/20 07:17 Pulse 102 H 12/30/20 07:17 Resp 22 H 12/30/20 07:17 BP 95/54 L 12/30/20 07:17 Pulse Ox 97 12/30/20 07:17 Body Mass Index 16.7 Const: Other: Constitutional : Alert, seems more confused today, more josiah rgic and tired, not in distress Neck : Normal inspection, Supple Cardiovascular : RRR, S1 S2, trace bilateral lower extremity edema Respiratory : Decrease bilateral air entry, basal bilateral fine crackles, no wheezes or rhonchi Gastrointestinal: soft, lax, Normal bowel sounds, Non tender Skin : Warm/Dry, No rash Neurological : Alert & disoriented to time and place, No focal deficit Objective Data Current Medications Generic Name Dose Route Start Last Admin Trade Name Freq PRN Reason Stop Dose Admin Acetaminophen 650 mg 12/27/20 12:12 12/28/20 04:59 Acetaminophen 325 Mg Tablet PO 650 mg Q6H PRN Administration Fever Bisacodyl 5 mg 12/28/20 10:50 Bisacodyl 5 Mg Tablet. PO BEDTIME PRN Constipation Escitalopram Oxalate 10 mg 12/28/20 16:15 12/30/20 09:05 Escitalopram Oxalate 10 Mg Tablet PO 10 mg DAILY JEREMY Administration Ferrous Sulfate 324 mg 12/29/20 09:00 12/30/20 09:05 Ferrous Sulfate 324 Mg Tablet. PO 324 mg DAILY JEREMY Administration Hydroxyzine HCl 25 mg 12/25/20 12:06 12/27/20 08:28 Hydroxyzine Hcl 25 Mg Tablet PO 25 mg Q6H PRN Administration anxiety/restlessness Potassium Chloride/Sodium Chloride 20 meq in 1,000 mls @ 80 mls/hr 12/28/20 16:15 12/30/20 01:05 IVCONT Not Given .[id number] [facility] Cefazolin Sodium 1 gm/ Sodium 50 mls @ 100 mls/hr 12/30/20 11:00 Chloride IV Q8H [facility] Omeprazole 20 mg 12/21/20 16:30 12/30/20 06:31 Omeprazole 20 Mg Capsule.Dr PO 20 mg BID@0630,1630 JEREMY Administration Oxycodone HCl 5 mg 12/27/20 01:32 12/30/20 09:04 Oxycodone Hcl Immed Release 5 Mg Tablet PO 5 mg Q6H PRN Administration Pain, Severe (Pain Scale 7-10) Prednisone 20 mg 12/28/20 16:10 12/30/20 09:05 Prednisone 20 Mg Tablet PO 20 mg DAILY [facility] Administration Psyllium Hydrophilic Mucilloid 3.4 gm 12/22/20 15:30 12/30/20 09:05 Psyllium Seed 3.4 Gm Powd.Pack PO 3.4 gm DAILY [facility] Administration Sodium Chloride 3 ml 12/21/20 00:00 12/30/20 09:05 0.9 % Sodium Chloride Flush 3 Ml Syringe IVFLUSH Not Given QSHIFT JEREMY Sodium Chloride 5 ml 12/25/20 21:00 12/30/20 09:05 0.9 % Sodium Chloride Flush 10 Ml Syringe IVFLUSH Not Given TID [facility] Labs CBC & Chem 7: 12/30/20 07:06 12/30/20 07:06 Microbiology Microbiology Results: Microbiology 12/29/20 15:18 Urine clean catch - Clean Catch Midstream Urine Culture - Preliminary Gram negative curly 12/27/20 12:37 Blood - Venous Blood Culture - Preliminary No growth after 48 hours. 12/27/20 12:37 Blood - Venous Blood Culture - Preliminary No growth after 48 hours. 12/22/20 09:20 Blood - Venous Blood Culture - Final No growth after 5 days. 12/22/20 09:14 Blood - Venous Blood Culture - Final No growth after 5 days. 12/21/20 Unknown Urine clean catch - Clean Catch Midstream Urine Culture - Final 12/20/20 20:26 Blood - Venous Blood Culture - Final Staphylococcus aureus 12/20/20 20:18 Blood - Venous Blood Culture - Final Staphylococcus aureus Assessment and Plan (1) Elevated LFTs: Status: Acute (2) Staphylococcus aureus bacteremia: Status: Acute (3) Spleen anomaly: Status: Acute (4) Pancytopenia: Status: Acute (5) Acute renal failure: Status: Acute (6) Positive fecal occult blood test: Status: Acute (7) Lupus: Status: Acute Assessment and Plan: 46-year-old female with a past medical history of hypertension, anemia, interstitial lung disease, lupus presented to the hospital with a chief complaint of generalized weakness and bony pains. Severe sepsis Lactic acidosis Patient neutropenic, tachycardic, elevated lactic acid Still to source of infection is not very clear , sepsis specific exam was done To give IV fluid Monitor lactic acid Repeat blood cultures Antibiotic changed to cefazolin To discuss with Infectious Disease Staph aureus bacteremia no clear source of infection identified Antibiotic changed to cefazolin D9/ total antibiotics cx MSSA in 2 bottles newly Repeat blood cutltures pending ID eval. appreciated PICC line placed, plan to dc to finish total 28 days of IV nafcillin Pancytopenia Numbers looks worse -ve HIV infection normal vitamin B12 and folic acid Elevated IgG on SPEP, Immunofixation elevated free light chain, elevated Ig's Hematology eval appreciated, to do bone Lackey when patient is stable enough To arrange for bone Lackey biopsy on Friday, platelets need to be above 50 to consider transfusion Elevated bilirubin Transaminitis Elevated bili 4.7 today Elevated AST of 500 to ALT 5-1 CT Abd\Pel showed spleenomegaly RUQ ultrasound on admission showed abnormal gallbladder with multiple stones and wall thickening with dilated CBD MRCP negative for any CBD stones no signs of acute cholecystitis at that point GI input appreciated, chronic anemia, no cholecystitis, supportive treatment, no CBD stones, no need for ERCP Surgery input appreciated, soft abdomen with no cholecystitis Could be secondary to sepsis, antibiotics; to treat sepsis and change antibiotic to cefazolin MILAN Cr of 1.8 with worening BUN Continue IVF Nephrology consult Monitor creatinine. Avoid nephrotoxins. Altered mentation Secondary to sepsis, hospital stay, medications, elevated liver enzymes Check ammonia level Recurrent reorientation Hypotension her baseline BP has been on the lower end of 100/60s Unlikely to be due to sepsis Interstitial lung disease Does not seem in exacerbation Nebulizers as needed Hepatitis C Seems to be previous exposure but no chronic infection +ve Ab negative viral load History of lupus On as a supine, on hold Continue prednisone 20 mg daily Her Primary Dr Thapa prescribe the Azathioprime, tried to call but never picked up in clinic! Hematuria +3 blood in urine DD X, stones, GN, mixed w GI bleed CT showed numerous bilateral nonobstructing renal calculi Moderate protein malnutrition Add Ensure Elevated troponins Troponins trended down echocardiogram showing normal LV function DVT prophylaxis SCDs
--- NOTE | 2020-12-30 12:14 | MHC.CM.PN ---
PATIENT AGREES TO ASSIGN A HCP AGENT, AND NAMES HER AUNT, LAURA THE SOLE AGENT. COMPLETED DOCUMENT IN CHART. COPY MAILED CERTIFIED TO LAURA ([phone]) TO ADDRESS LISTED ON HCP. HOSPITALIST AWARE.
[2020-12-30] MEDS: Acetaminophen 325 MG TABLET 650 MG PO ×2 (12:27→20:35)
[2020-12-30] MEDS: 0.9 % Sodium Chloride 1,000 ML 999 ML IV (12:27)
[2020-12-30 12:54] LABS: ~Lactic Acid-LAB USE ONLY 2.6 mmol/L (0.5-2.0)
[2020-12-30 13:49] LABS: Reflex Lactate? 2 Y
[2020-12-30 15:31] LABS: ~Lactic Acid-LAB USE ONLY 1.9 mmol/L (0.5-2.0)
[2020-12-30] MEDS: Sodium Bicarbonate 8.4% 150 MEQ in Dextrose 5 % 850 ML 100 MEQ IV (16:46)
[2020-12-30] MEDS: hydrOXYzine HCL 25 MG TABLET PO (16:54)
[2020-12-30] MEDS: Doxycycline Hyclate 100 MG in 0.9 % Sodium Chloride 250 ML 166.67 MG IV (16:54)
[2020-12-30] MEDS: Piperacillin Sodium/Tazobactam 2.25 GM in 0.9 % Sodium Chloride 50 ML IV ×2 (19:15→23:58)
[2020-12-30] MEDS: 0.9 % Sodium Chloride Flush 10 ML SYRINGE 5 ML IVFLUSH (20:03)
--- NOTE | 2020-12-30 22:08 | P.PNNP_ITS ---
Subjective Subjective Date of Service: 12/30/20 Interval history: the patient was seen and evaluated this morning Looks more tired and confused this morning fever + Physical Exam Vital Signs: Vital Signs: Last Vital Signs Temp 98.9 F 12/30/20 20:36 Pulse 100 12/30/20 19:19 Resp 20 12/30/20 19:19 BP 93/61 12/30/20 19:19 Pulse Ox 99 12/30/20 19:19 Body Mass Index 16.7 Const: Other: Constitutional : Alert, seems more confused today, more lethargic and tired, not in distress Neck : Normal inspection, Supple Cardiovascular : RRR, S1 S2, trace bilateral lower extremity edema Respiratory : Decrease bilateral air entry, basal bilateral fine crackles, no wheezes or rhonchi Gastrointestinal: soft, lax, Normal bowel sounds, Non tender Skin : Warm/Dry, No rash Neurological : Alert & disoriented to time and place, No focal deficit General: cooperative, comfortable, no acute distress and alert; No confusion Orientation/consciousness: patient oriented x3 and No confusion HENMT: Head: Yes normal to inspection Mouth: Normal oral and palatal mucosa present Eyes: General: appearance normal, both eyes and all related structures Sclerae: sclerae normal Neck: Lymphatic: lymphadenopathy not noted Resp: Other: Appears a little short of breath Effort & Inspection: normal respiratory effort Cardio: Other: Constitutional : Alert, seems more confused today, more lethargic and tired, not in distress Neck : Normal inspection, Supple Cardiovascular : RRR, S1 S2, trace bilateral lower extremity edema Respiratory : Decrease bilateral air entry, basal bilateral fine crackles, no wheezes or rhonchi Gastrointestinal: soft, lax, Normal bowel sounds, Non tender Skin : Warm/Dry, No rash Neurological : Alert & disoriented to time and place, No focal deficit Rate: regular rate Rhythm: regular rhythm GI: Other: abd soft, no obvious tenderness to palpation Inspection: Yes normal to inspection Palpation (GI): Soft to palpation, not firm, nontender and no guarding Percussion: Yes normal to percussion : General: Yes no CVA tenderness Back/Spine/Pelvis: Back: no CVA tenderness Skin: General skin exam: no rashes or lesions noted Neuro: General: patient oriented x3, moves all extremities and No confusion Extrem: General: Yes normal to inspection and Yes capillary refill normal Psych: Appearance: grossly normal Objective Data Labs CBC & Chem 7: 12/30/20 07:06 12/30/20 07:06 Labs: Laboratory Results - last 24 hr 12/22/20 12/30/20 12/30/20 09:13 07:06 07:06 WBC 1.7 L RBC 2.52 L Hgb 8.1 L Hct 25.4 L MCV 100.8 H MCH 32.1 MCHC 31.9 RDW 22.6 H Plt Count 24 L MPV Not Reportable Absolute Nucleated RBC 0.020 H Nucleated RBC % (auto) 1.2 H Sodium 135 Potassium 3.8 Chloride 116 H Carbon Dioxide 12 L Anion Gap 11 L BUN 22 H Creatinine 1.83 H Estim Creat Clear Calc 30.0 Estimated GFR 30 Random Glucose 78 Lactic Acid Lactic Acid Fup @ 2Hr Lactic Acid Fup @ 4Hr Calcium 7.1 L Total Bilirubin 4.7 H Direct Bilirubin 3.9 H AST 490 H ALT 101 H Alkaline Phosphatase 96 Total Protein 7.2 Albumin 1.3 L Abnorm Protein Band 1 TNP Abnorm Protein Band 2 TNP Abnorm Protein Band 3 TNP 12/30/20 12/30/20 12/30/20 08:58 11:32 15:01 WBC RBC Hgb Hct MCV MCH MCHC RDW Plt Count MPV Absolute Nucleated RBC Nucleated RBC % (auto) Sodium Potassium Chloride Carbon Dioxide Anion Gap BUN Creatinine Estim Creat Clear Calc Estimated GFR Random Glucose Lactic Acid 2.8 H* Lactic Acid Fup @ 2Hr 2.6 H* Lactic Acid Fup @ 4Hr 1.9 Calcium Total Bilirubin Direct Bilirubin AST ALT Alkaline Phosphatase Total Protein Albumin Abnorm Protein Band 1 Abnorm Protein Band 2 Abnorm Protein Band 3 Microbiology Microbiology Results: Microbiology 12/29/20 15:18 Urine clean catch - Clean Catch Midstream Urine Culture - Preliminary Gram negative curly 12/27/20 12:37 Blood - Venous Blood Culture - Preliminary No growth after 48 hours. 12/27/20 12:37 Blood - Venous Blood Culture - Preliminary No growth after 48 hours. 12/22/20 09:20 Blood - Venous Blood Culture - Final No growth after 5 days. 12/22/20 09:14 Blood - Venous Blood Culture - Final No growth after 5 days. 12/21/20 Unknown Urine clean catch - Clean Catch Midstream Urine Culture - Final 12/20/20 20:26 Blood - Venous Blood Culture - Final Staphylococcus aureus 12/20/20 20:18 Blood - Venous Blood Culture - Final Staphylococcus aureus Assessment & Plan Assessment and plan (1) Elevated LFTs: Status: Acute (2) Staphylococcus aureus bacteremia: Status: Acute (3) Spleen anomaly: Status: Acute (4) Pancytopenia: Status: Acute (5) Acute renal failure: Status: Acute (6) Positive fecal occult blood test: Status: Acute (7) Lupus: Status: Acute Assessment and Plan: 1. A 45-year-old female with lupus, with acute kidney injury. Acute kidney injury in this patient is likely secondary to prerenal azotemia. She has not been taking adequate amount of p.o. fluids. Obstruction ruled out on this patient based on CT scan . She does have Staph aureus bacteremia. ? nfection-induced acute GN. She is also on aspirin. We need to rule out interstitial disease. It is unclear if she has lupus-related renal disease at this juncture. 2. Baseline stage II CKD. 3. Staph aureus bacteremia. 4. Pancytopenia. 5. Severe hypoalbuminemia, likely due to malnutrition. I doubt the patient has nephrotic syndrome as a reason for her severe hypoalbuminemia. 6. Interstitial lung disease in the setting of systemic lupus erythematosus. RECOMMENDATIONS: checking spot urine for electrolytes, protein, and creatinine- Ordreed - Not done We will assess the protein-creatinine ratio- Ordrede not done We should avoid using nephrotoxic agents and continue with antibiotics as ordered. I will check urine eosinophil levels on this patient. F/u C3 and C4 on thispatient. + Ve serum immunofixation- Hematology f/u The patient is on prednisone, which can cause disproportionate elevation of BUN compared to creatinine, and we will monitor it closely. May need a renal biopsy Thank you for allowing me to participate in the medical management of the patient. Time Spent With Patient Time: Total time spent is greater than 50% in coordination of care (as doc umented) at patient's floor/unit and/or counseling patient: Procedures Date of Service Date of Service: 12/30/20
--- NOTE | 2020-12-30 22:27 | PM.IDPN ---
Subjective Subjective Date of Service: 12/30/20 Interval History: she has increased respiratory rate she has more confusion and LA 2.8 Objective Data Labs CBC & Chem 7: 12/30/20 07:06 12/30/20 07:06 Labs: Laboratory Results - last 24 hr 12/22/20 12/30/20 12/30/20 09:13 07:06 07:06 WBC 1.7 L RBC 2.52 L Hgb 8.1 L Hct 25.4 L MCV 100.8 H MCH 32.1 MCHC 31.9 RDW 22.6 H Plt Count 24 L MPV Not Reportable Absolute Nucleated RBC 0.020 H Nucleated RBC % (auto) 1.2 H Sodium 135 Potassium 3.8 Chloride 116 H Carbon Dioxide 12 L Anion Gap 11 L BUN 22 H Creatinine 1.83 H Estim Creat Clear Calc 30.0 Estimated GFR 30 Random Glucose 78 Lactic Acid Lactic Acid Fup @ 2Hr Lactic Acid Fup @ 4Hr Calcium 7.1 L Total Bilirubin 4.7 H Direct Bilirubin 3.9 H AST 490 H ALT 101 H Alkaline Phosphatase 96 Total Protein 7.2 Albumin 1.3 L Abnorm Protein Band 1 TNP Abnorm Protein Band 2 TNP Abnorm Protein Band 3 TNP 12/30/20 12/30/20 12/30/20 08:58 11:32 15:01 WBC RBC Hgb Hct MCV MCH MCHC RDW Plt Count MPV Absolute Nucleated RBC Nucleated RBC % (auto) Sodium Potassium Chloride Carbon Dioxide Anion Gap BUN Creatinine Estim Creat Clear Calc Estimated GFR Random Glucose Lactic Acid 2.8 H* Lactic Acid Fup @ 2Hr 2.6 H* Lactic Acid Fup @ 4Hr 1.9 Calcium Total Bilirubin Direct Bilirubin AST ALT Alkaline Phosphatase Total Protein Albumin Abnorm Protein Band 1 Abnorm Protein Band 2 Abnorm Protein Band 3 Microbiology Microbiology Results: Microbiology 12/29/20 15:18 Urine clean catch - Clean Catch Midstream Urine Culture - Preliminary Gram negative curly 12/27/20 12:37 Blood - Venous Blood Culture - Preliminary No growth after 48 hours. 12/27/20 12:37 Blood - Venous Blood Culture - Preliminary No growth after 48 hours. 12/22/20 09:20 Blood - Venous Blood Culture - Final No growth after 5 days. 12/22/20 09:14 Blood - Venous Blood Culture - Final No growth after 5 days. 12/21/20 Unknown Urine clean catch - Clean Catch Midstream Urine Culture - Final 12/20/20 20:26 Blood - Venous Blood Culture - Final Staphylococcus aureus 12/20/20 20:18 Blood - Venous Blood Culture - Final Staphylococcus aureus Physical Exam Vital Signs: Vital Signs: Last Vital Signs Temp 98.9 F 12/30/20 20:36 Pulse 100 12/30/20 19:19 Resp 20 12/30/20 19:19 BP 93/61 12/30/20 19:19 Pulse Ox 99 12/30/20 19:19 Body Mass Index 16.7 Const: General: cooperative HENMT: Head: Yes normal to inspection Mouth: Normal oral and palatal mucosa present Resp: Effort & Inspection: normal respiratory effort Cardio: Rate: regular rate Rhythm: regular rhythm GI: Palpation (GI): Soft to palpation and nontender Skin: General skin exam: no rashes or lesions noted Assessment and Plan Assessment and plan (1) Staphylococcus aureus bacteremia: Problem details: On Nafcillin Possible pancytopenia and fever due to Naficillin No abdominal process seen Possible UTI as source,less likely fungus Status: Acute Assessment and Plan: Zosyn Await urine culture Sop Nafcillin (2) Pancytopenia: Status: Acute (3) Acute renal failure: Status: Acute Time Spent With Patient Time: Total time spent is greater than 50% in coordination of care (as documented) at patient's floor/unit and/or counseling patient: Time with patient: 15 - 24 minutes
[2020-12-31] VITALS (16 sets, daily range): BP systolic 99–128; BP diastolic 60–83; PULSE 73–114; RESP 18–28; TEMP 36.1–37; O2SAT 91–97
[2020-12-31] MEDS: oxyCODONE HCl Immed Release 5 MG TABLET PO (00:07)
[2020-12-31] MEDS: hydrOXYzine HCL 25 MG TABLET PO ×3 (03:22→17:39)
[2020-12-31] MEDS: Doxycycline Hyclate 100 MG in 0.9 % Sodium Chloride 250 ML 166.67 MG IV ×2 (03:49→16:19)
[2020-12-31] MEDS: Acetaminophen 325 MG TABLET 650 MG PO (05:50)
[2020-12-31] MEDS: Omeprazole 20 MG CAPSULE.DR PO ×2 (05:50→16:20)
[2020-12-31] MEDS: Piperacillin Sodium/Tazobactam 2.25 GM in 0.9 % Sodium Chloride 50 ML IV ×4 (05:50→23:34)
[2020-12-31 07:16] LABS: Hematocrit 24.9 % (37-47); Hemoglobin 8.1 g/dl (12.0-16.0); Mean Corpuscular HGB Conc 32.5 g/dl (31.0-35.0); Mean Corpuscular Hemoglobin 32.4 pg (27.0-33.0); Mean Corpuscular Volume 99.6 fL (80-98); Red Cell Distribution Width 22.7 % (11.0-16.0)
[2020-12-31 07:56] LABS: Alanine Aminotransferase 75 U/L (0-31); Albumin Level 1.3 g/dL (3.5-5.0); Alkaline Phosphatase 82 U/L (39-117); Anion Gap 11 (12-20); Aspartate Amino Transferase 291 U/L (5-31); Bilirubin Direct 3.2 mg/dL (0.0-0.5); Bilirubin Total 3.7 mg/dL (0.0-1.0); Blood Urea Nitrogen 27 mg/dL (9-16); Calcium 6.7 mg/dL (8.4-10.2); Carbon Dioxide 11 mmol/L (22-29); Chloride 116 mmol/L (96-108); Creatinine Clr Calc Pharmacy 30.3; Estimated Glomerular Filt Rate 30; Glucose Random 89 mg/dL (60-115); Lactate Dehydrogenase 523 U/L (122-220); Sodium 135 mmol/L (135-145); Total Protein 6.7 g/dL (6.5-8.0)
[2020-12-31 08:21] LABS: White Blood Count 1.9 X10*3/uL (4.8-10.8)
[2020-12-31 08:24] LABS: Platelet Count 20 X10*3/uL (160-400)
[2020-12-31] MEDS: Sodium Bicarbonate 8.4% 150 MEQ in Dextrose 5 % 850 ML 100 MEQ IV (09:09)
[2020-12-31] MEDS: predniSONE 20 MG TABLET PO (09:10)
[2020-12-31] MEDS: Ferrous Sulfate 324 MG TABLET.DR PO (09:10)
[2020-12-31] MEDS: Potassium Chloride Packet 20 MEQ PACKET 40 MEQ PO ×2 (09:10→11:35)
[2020-12-31] MEDS: Escitalopram Oxalate 10 MG TABLET PO (09:11)
--- NOTE | 2020-12-31 10:39 | PM.PNGS ---
Subjective Subjective Date of Service: 12/31/20 Interval history: Says she has abdominal pain -diffuse Does state that she has had this for several months No nausea or vomiting Physical Exam Vital Signs: Vital Signs: Last Vital Signs Temp 98.4 F 12/31/20 08:00 Pulse 114 H 12/31/20 08:00 Resp 25 H 12/31/20 08:00 BP 113/63 12/31/20 08:00 Pulse Ox 91 L 12/31/20 08:00 Body Mass Index 16.7 Chemistry 12/29/20 12/30/20 12/31/20 06:07 07:06 06:34 Sodium 137 135 135 Potassium 3.7 3.8 3.0 L D Carbon Dioxide 15 L 12 L 11 L BUN 16 22 H 27 H Creatinine 1.49 H 1.83 H 1.81 H Calcium 7.5 L 7.1 L 6.7 L Hematology 12/29/20 12/30/20 12/31/20 06:07 07:06 06:34 WBC 1.5 L 1.7 L 1.9 L Hgb 7.7 L 8.1 L 8.1 L Plt Count 21 L 24 L 20 L* Urinalysis 12/29/20 14:56 Urine Color YELLOW Urine Appearance HAZY Urine pH 6.5 Ur Specific Gravit y 1.020 Urine Protein TRACE Urine Glucose (UA) NEG Urine Ketones NEG Urine Blood 1+ H Urine Nitrite NEG Ur Leukocyte Raisa ase 1+ H Urine RBC 1-4 Urine WBC 5-9 H Ur Squamous Epith Cells 3+ Const: Other: Appears very anxious General: no acute distress Resp: Effort & Inspection: normal respiratory effort Cardio: Rhythm: regular rhythm GI: Other: Vague tenderness diffusely Palpation (GI): Soft to palpation, no guarding, not rigid and No Rebound tenderness present Progress Note: A&P Assessment and plan (1) Elevated LFTs: Status: Acute Assessment and Plan: Bilirubin trending down Overall clinical picture not consistent with acute cholecystitis Has primary liver disease Abdominal exam remains benign Fall Risk Details Current Medications: Current Medications Generic Name Dose Route Start Last Admin Trade Name Freq PRN Reason Stop Dose Admin Acetaminophen 650 mg 12/27/20 12:12 12/31/20 05:50 Acetaminophen 325 Mg Tablet PO 650 mg Q6H PRN Administration Fever Bisacodyl 5 mg 12/28/20 10:50 Bisacodyl 5 Mg Tablet. PO BEDTIME PRN Constipation Escitalopram Oxalate 10 mg 12/28/20 16:15 12/31/20 09:11 Escitalopram Oxalate 10 Mg Tablet PO 10 mg DAILY JEREMY Administration Ferrous Sulfate 324 mg 12/29/20 09:00 12/31/20 09:10 Ferrous Sulfate 324 Mg Tablet. PO 324 mg DAILY JEREMY Administration Hydroxyzine HCl 25 mg 12/25/20 12:06 12/31/20 03:22 Hydroxyzine Hcl 25 Mg Tablet PO 25 mg Q6H PRN Administration anxiety/restlessness Doxycycline Hyclate 100 mg/ 250 mls @ 166.67 mls/hr 12/30/20 16:00 12/31/20 05:27 Sodium Chloride IV Infused Q12H JEREMY Infusion Sodium Bicarbonate 150 meq/ 1,000 mls @ 100 mls/hr 12/30/20 15:30 12/31/20 09:09 Dextrose IV 100 mls/hr .Q10H JEREMY Administration Piperacillin Sod/Tazobactam 50 mls @ 100 mls/hr 12/30/20 18:00 12/31/20 06:27 Sod 2.25 gm/ Sodium Chloride IV Infused Q6H JEREMY Infusion Omeprazole 20 mg 12/21/20 16:30 12/31/20 05:50 Omeprazole 20 Mg Capsule. PO 20 mg BID@0630,1630 JEREMY Administration Oxycodone HCl 5 mg 12/27/20 01:32 12/31/20 00:07 Oxycodone Hcl Immed Release 5 Mg Tablet PO 5 mg Q6H PRN Administration Pain, Severe (Pain Scale 7-10) Potassium Chloride 40 meq 12/31/20 09:00 12/31/20 09:10 Potassium Chloride Packet 20 Meq Packet PO 12/31/20 13:01 40 meq Q4H JERMEY Administration Prednisone 20 mg 12/28/20 16:10 12/31/20 09:10 Prednisone 20 Mg Tablet PO 20 mg DAILY JEREMY Administration Psyllium Hydrophilic Mucilloid 3.4 gm 12/22/20 15:30 12/31/20 09:10 Psyllium Seed 3.4 Gm Powd.Pack PO 3.4 gm DAILY JEREMY Administration Sodium Chloride 3 ml 12/21/20 00:00 12/31/20 09:10 0.9 % Sodium Chloride Flush 3 Ml Syringe IVFLUSH Not Given QSHIFT JEREMY Sodium Chloride 5 ml 12/25/20 21:00 12/31/20 09:10 0.9 % Sodium Chloride Flush 10 Ml Syringe IVFLUSH Not Given TID JEREMY Time Spent With Patient Time: Total time spent is greater than 50% in coordination of care (as documented) at patient's floor/unit and/or counseling patient: Time with patient: 15 - 24 minutes Procedures Date of Service Date of Service: 12/31/20
--- NOTE | 2020-12-31 10:54 | HO.PM.IMPN ---
Subjective Subjective Date of Service: 12/31/20 Interval History: The patient was seen and evaluated this morning Looks tired and mildly confused, tachypneic Platelets still going down, sodium bicarb low at 11 No fever for the last 24 hours Moving her bowels no reported bleeding Denies any fever, chills or shortness of breath No reported other overnight events. Systemic review: No fever, chills but reports generalized weakness and pain all over her body No chest pain, palpitation No SOB, no coughing improved oral intake, No abdominal pain, nausea or vomiting No urinary symptoms No any rash or wounds Physical Exam Vital Signs: Vital Signs: Last Vital Signs Temp 98.4 F 12/31/20 08:00 Pulse 114 H 12/31/20 08:00 Resp 25 H 12/31/20 08:00 BP 113/63 12/31/20 08:00 Pulse Ox 91 L 12/31/20 08:00 Body Mass Index 16.7 Const: Other: Constitutional : Alert, seems more confused today, more lethargic and tired, not in distress Neck : Normal inspection, Supple Cardiovascular : RRR, S1 S2, trace bilateral lower extremity edema Respiratory : Tachypneic, Decrease bilateral air entry, basal bilateral fine crackles, no wheezes or rhonchi Gastrointestinal: soft, lax, Normal bowel sounds, Non tender Skin : Warm/Dry, No rash Neurological : Alert & disoriented to time and place, No focal deficit Objective Data Current Medications Generic Name Dose Route Start Last Admin Trade Name Freq PRN Reason Stop Dose Admin Acetaminophen 650 mg 12/27/20 12:12 12/31/20 05:50 Acetaminophen 325 Mg Tablet PO 650 mg Q6H PRN Administration Fever Bisacodyl 5 mg 12/28/20 10:50 Bisacodyl 5 Mg Tablet. PO BEDTIME PRN Constipation Escitalopram Oxalate 10 mg 12/28/20 16:15 12/31/20 09:11 Escitalopram Oxalate 10 Mg Tablet PO 10 mg DAILY JEREMY Administration Ferrous Sulfate 324 mg 12/29/20 09:00 12/31/20 09:10 Ferrous Sulfate 324 Mg Tablet. PO 324 mg DAILY JEREMY Administration Hydroxyzine HCl 25 mg 12/25/20 12:06 12/31/20 03:22 Hydroxyzine Hcl 25 Mg Tablet PO 25 mg Q6H PRN Administration anxiety/restlessness Doxycycline Hyclate 100 mg/ 250 mls @ 166.67 mls/hr 12/30/20 16:00 12/31/20 05:27 Sodium Chloride IV Infused Q12H JEREMY Infusion Sodium Bicarbonate 150 meq/ 1,000 mls @ 100 mls/hr 12/30/20 15:30 12/31/20 09:09 Dextrose IV 100 mls/hr .Q10H JEREMY Administration Piperacillin Sod/Tazobactam 50 mls @ 100 mls/hr 12/30/20 18:00 12/31/20 06:27 Sod 2.25 gm/ Sodium Chloride IV Infused Q6H JEREMY Infusion Omeprazole 20 mg 12/21/20 16:30 12/31/20 05:50 Omeprazole 20 Mg Capsule.Dr PO 20 mg BID@0630,1630 JEREMY Administration Oxycodone HCl 5 mg 12/27/20 01:32 12/31/20 00:07 Oxycodone Hcl Immed Release 5 Mg Tablet PO 5 mg Q6H PRN Administration Pain, Severe (Pain Scale 7-10) Potassium Chloride 40 meq 12/31/20 09:00 12/31/20 09:10 Potassium Chloride Packet 20 Meq Packet PO 12/31/20 13:01 40 meq Q4H JEREMY Administration Prednisone 20 mg 12/28/20 16:10 12/31/20 09:10 Prednisone 20 Mg Tablet PO 20 mg DAILY JEREMY Administration Psyllium Hydrophilic Mucilloid 3.4 gm 12/22/20 15:30 12/31/20 09:10 Psyllium Seed 3.4 Gm Powd.Pack PO 3.4 gm DAILY JEREMY Administration Sodium Chloride 3 ml 12/21/20 00:00 12/31/20 09:10 0.9 % Sodium Chloride Flush 3 Ml Syringe IVFLUSH Not Given QSHIFT JEREMY Sodium Chloride 5 ml 12/25/20 21:00 12/31/20 09:10 0.9 % Sodium Chloride Flush 10 Ml Syringe IVFLUSH Not Given TID [facility] Labs CBC & Chem 7: 12/31/20 06:34 12/31/20 06:34 Microbiology Microbiology Results: Microbiology 12/29/20 15:18 Urine clean catch - Clean Catch Midstream Urine Culture - Final Escherichia coli 12/27/20 12:37 Blood - Venous Blood Culture - Preliminary No growth after 48 hours. 12/27/20 12:37 Blood - Venous Blood Culture - Preliminary No growth after 48 hours. 12/22/20 09:20 Blood - Venous Blood Culture - Final No growth after 5 days. 12/22/20 09:14 Blood - Venous Blood Culture - Final No growth after 5 days. 12/21/20 Unknown Urine clean catch - Clean Catch Midstream Urine Culture - Final 12/20/20 20:26 Blood - Venous Blood Culture - Final Staphylococcus aureus 12/20/20 20:18 Blood - Venous Blood Culture - Final Staphylococcus aureus Assessment and Plan (1) Elevated LFTs: Status: Acute (2) Staphylococcus aureus bacteremia: Problem details: On Nafcillin Possible pancytopenia and fever due to Naficillin No abdominal process seen Possible UTI as source,less likely fungus Status: Acute (3) Spleen anomaly: Status: Acute (4) Pancytopenia: Status: Acute (5) Acute renal failure: Status: Acute (6) Positive fecal occult blood test: Status: Acute (7) Lupus: Status: Acute Assessment and Plan: 46-year-old female with a past medical history of hypertension, anemia, interstitial lung disease, lupus presented to the hospital with a chief complaint of generalized weakness and bony pains. Severe sepsis, resolved Lactic acidosis, resolved Patient neutropenic, tachycardic, elevated lactic acid Still to source of infection is not very clear sepsis specific exam was done Repeat blood cultures pending Antibiotic changed to Zosyn Staph aureus bacteremia no clear source of infection identified Antibiotic changed to Zosyn D10/28 total antibiotics cx MSSA in 2 bottles newly Repeat blood cutltures pending ID eval. appreciated PICC line placed, plan to dc to finish total 28 days of IV nafcillin Pancytopenia Readings continue to go down, platelets around 20 -ve HIV infection normal vitamin B12 and folic acid Elevated IgG on SPEP, Immunofixation elevated free light chain, elevated Ig's Hematology eval appreciated, to do bone Lackey when patient is stable enough To transfuse 2 units of platelets today, target platelets of 50 To arrange for bone Lackey biopsy on Friday, platelets need to be above 50 to consider transfusion Elevated bilirubin Transaminitis Elevated bili 3.7 today Liver enzymes trending down Could be secondary to sepsis, antibiotics; to treat sepsis and change antibiotic to Zosyn CT Abd\Pel showed spleenomegaly RUQ ultrasound on admission showed abnormal gallbladder with multiple stones and wall thickening with dilated CBD MRCP negative for any CBD stones no signs of acute cholecystitis at that point GI input appreciated, chronic anemia, no cholecystitis, supportive treatment, no CBD stones, no need for ERCP Surgery input appreciated, soft abdomen with no cholecystitis MILAN Metabolic acidosis Cr of 1.8 with worening BUN of 27 Continue IVF with sodium bicarb Start oral sodium bicarb Nephrology consult appreciated Monitor creatinine. Avoid nephrotoxins. Hypokalemia Potassium of 3 next Lyme to give replacement Monitor BMP Altered mentation Secondary to sepsis, hospital stay, medications, elevated liver enzymes Check ammonia level Recurrent reorientation Hypotension her baseline BP has been on the lower end of 100/60s Unlikely to be due to sepsis Interstitial lung disease Does not seem in exacerbation Nebulizers as needed Hepatitis C Seems to be previous exposure but no chronic infection +ve Ab negative viral load History of lupus On as a supine, on hold Continue prednisone 20 mg daily Her Primary Dr Thapa prescribe the Azathioprime, tried to call but never picked up in clinic! Hematuria +3 blood in urine DD X, stones, GN, mixed w GI bleed CT showed numerous bilateral nonobstructing renal calculi Moderate protein malnutrition Add Ensure Elevated troponins Troponins trended down echocardiogram showing normal LV function DVT prophylaxis SCDs
[2020-12-31] MEDS: Sodium Bicarbonate 650 MG TABLET 1300 MG PO ×3 (11:35→21:12)
[2020-12-31] MEDS: oxyCODONE HCl Immed Release 5 MG TABLET 2.5 MG PO ×2 (11:36→17:39)
[2020-12-31] MEDS: Sodium Bicarbonate 8.4% 50 MEQ/50 ML VIAL IVPUSH (13:11)
[2020-12-31] MEDS: 0.9 % Sodium Chloride Flush 10 ML SYRINGE 5 ML IVFLUSH (16:19)
--- NOTE | 2020-12-31 17:49 | PC.NURSE ---
blood consent needs to be sign,Dr. garber made aware
--- NOTE | 2020-12-31 17:52 | PC.NURSE ---
P-patient lying on right side where PICC line is I-assisted with repositioning numerous time so antibiotic could infuse e-patient forgetful,will assist as needed
--- NOTE | 2020-12-31 21:30 | P.PNNP_ITS ---
Subjective Subjective Date of Service: 12/31/20 Interval history: The patient was seen and evaluated Patient with Significant loose stools Pancytopenia Platelets still going down, Bicarb low at 11 Denies any fever, chills or shortness of breath Systemic review: No fever, chills but reports generalized weakness and pain all over her body No chest pain, palpitation No SOB, no coughing improved oral intake, No abdominal pain, nausea or vomiting No urinary symptoms No any rash or wounds Physical Exam Vital Signs: Vital Signs: Last Vital Signs Temp 98.6 F 12/31/20 21:27 Pulse 108 H 12/31/20 21:27 Resp 20 12/31/20 21:27 BP 111/67 12/31/20 21: Pulse Ox 96 12/31/20 20:00 Body Mass Index 16.7 Const: Other: Constitutional : Alert, seems more confused today, more lethargic and tired, not in distress Neck : Normal inspection, Supple Cardiovascular : RRR, S1 S2, trace bilateral lower extremity edema Respiratory : Decrease bilateral air entry, basal bilateral fine crackles, no wheezes or rhonchi Gastrointestinal: soft, lax, Normal bowel sounds, Non tender Skin : Warm/Dry, No rash Neurological : Alert & disoriented to time and place, No focal deficit General: cooperative, comfortable, no acute distress and alert; No confusion Orientation/consciousness: patient oriented x3 and No confusion HENMT: Head: Yes normal to inspection Mouth: Normal oral and palatal mucosa present Eyes: General: appearance normal, both eyes and all related structures Sclerae: sclerae normal Neck: Lymphatic: lymphadenopathy not noted Resp: Other: Appears a little short of breath Effort & Inspection: normal r espiratory effort Cardio: Other: Constitutional : Alert, seems more confused today, more lethargic and tired, not in distress Neck : Normal inspection, Supple Cardiovascular : RRR, S1 S2, trace bilateral lower extremity edema Respiratory : Decrease bilateral air entry, basal bilateral fine crackles, no wheezes or rhonchi Gastrointestinal: soft, lax, Normal bowel sounds, Non tender Skin : Warm/Dry, No rash Neurological : Alert & disoriented to time and place, No focal deficit Rate: regular rate Rhythm: regular rhythm GI: Other: abd soft, no obvious tenderness to palpation Inspection: Yes normal to inspection Palpation (GI): Soft to palpation, not firm, nontender and no guarding Percussion: Yes normal to percussion : General: Yes no CVA tenderness Back/Spine/Pelvis: Back: no CVA tenderness Skin: General skin exam: no rashes or lesions noted Neuro: General: patient oriented x3, moves all extremities and No confusion Extrem: General: Yes normal to inspection and Yes capillary refill normal Psych: Appearance: grossly normal Objective Data Labs CBC & Chem 7: 12/31/20 06:34 12/31/20 06:34 Labs: Laboratory Results - last 24 hr 12/29/20 12/31/20 12/31/20 06:08 06:34 06:34 WBC 1.9 L RBC 2.50 L Hgb 8.1 L Hct 24.9 L MCV 99.6 H MCH 32.4 MCHC 32.5 RDW 22.7 H Plt Count 20 L* MPV Not Reportable Absolute Nucleated RBC 0.000 Nucleated RBC % (auto) 0.0 Sodium 135 Potassium 3.0 L D Chloride 116 H Carbon Dioxide 11 L Anion Gap 11 L BUN 27 H Creatinine 1.81 H Estim Creat Clear Calc 30.3 Estimated GFR 30 Random Glucose 89 Calcium 6.7 L Total Bilirubin 3.7 H Direct Bilirubin 3.2 H AST 291 H ALT 75 H Alkaline Phosphatase 82 Lactate Dehydrogenase 523 H Total Protein 6.7 Albumin 1.3 L Blood Type O Positive Antibody Screen POSITIVE Antibody Identification Anti-E Direct Antiglob Test POSITIVE A CARIDAD, Polyspecific POSITIVE A Crossmatch (AHG) See Detail Microbiology Microbiology Results: Microbiology 12/30/20 08:58 Blood - Venous Blood Culture - Preliminary No growth after 24 hours. 12/30/20 08:58 Blood - Venous Blood Culture - Preliminary No growth after 24 hours. 12/29/20 15:18 Urine clean catch - Clean Catch Midstream Urine Culture - Final Escherichia coli 12/27/20 12:37 Blood - Venous Blood Culture - Preliminary No growth after 48 hours. 12/27/20 12:37 Blood - Venous Blood Culture - Preliminary No growth after 48 hours. 12/22/20 09:20 Blood - Venous Blood Culture - Final No growth after 5 days. 12/22/20 09:14 Blood - Venous Blood Culture - Final No growth after 5 days. 12/21/20 Unknown Urine clean catch - Clean Catch Midstream Urine Culture - Final 12/20/20 20:26 Blood - Venous Blood Culture - Final Staphylococcus aureus 12/20/20 20:18 Blood - Venous Blood Culture - Final Staphylococcus aureus Assessment & Plan Assessment and plan (1) Elevated LFTs: Status: Acute (2) Staphylococcus aureus bacteremia: Status: Acute (3) Spleen anomaly: Status: Acute (4) Pancytopenia: Status: Acute (5) Acute renal failure: Status: Acute (6) Positive fecal occult blood test: Status: Acute (7) Lupus: Status: Acute Assessment and Plan: 46-year-old female with a past medical history of hypertension, anemia, interstitial lung disease, lupus presented to the hospital with a chief complaint of generalized weakness and bony pains. 1. A 45-year-old female with lupus, with acute kidney injury. Acute kidney injury in this patient is likely secondary to severe prerenal azotemia. Loose stools Obstruction ruled out on this patient based on CT scan . She does have Staph aureus bacteremia. ? infection-induced acute GN. We need to rule outinterstitial disease. It is unclear if she has lupus-related renal disease at this juncture. 2. Baseline stage II CKD. 3. Staph aureus bacteremia. 4. Pancytopenia. 5. Severe hypoalbuminemia, likely due to malnutrition. I doubt the patient has nephrotic syndrome as a reason for her severe hypoalbuminemia. 6. Interstitial lung disease in the setting of systemic lupus erythematosus. 7. Severe acidosos/ Hypokalemia RECOMMENDATIONS: Reordered spot urine for electrolytes, protein, and creatinine- Ordered - Not done We will assess the protein-creatinine ratio- Ordred in the past > not done Increased IB bicarb to 150 ml/ hr as pt with loose stools K replacemnet Mag level ordered for AM We should avoid using nephrotoxic agents and continue with antibiotics as ordered. I will check urine eosinophil levels on this patient. F/u C3 and C4 on thispatient. + Ve serum immunofixation- Hematology f/u The patient is on prednisone- ? [id number] eval compared to creatinine, and we will monitor it closely. May need a renal biopsy when more stable Thank you for allowing me to participate in the medical management of the patient. Time Spent With Patient Time: Total time spent is greater than 50% in coordination of care (as docu mented) at patient's floor/unit and/or counseling patient: Procedures Date of Service Date of Service: 12/31/20
[2020-12-31] MEDS: 0.9 % Sodium Chloride Flush 3 ML SYRINGE IVFLUSH (23:34)
[2021-01-01] VITALS (8 sets, daily range): BP systolic 91–132; BP diastolic 42–90; PULSE 85–114; RESP 16–20; TEMP 36–36.9; O2SAT 90–93
[2021-01-01] MEDS: LORazepam 2 MG/ML VIAL 1 MG IVPUSH (02:46)
--- NOTE | 2021-01-01 02:58 | PC.NURSE ---
0246 pt very restless and agitated.pt keeps taking 02 off sats 87% on room air.tried to give pt her atarax but she would not take it even when i crushed and put it in ice cream. notified ativan 1mg iv ordered.
[2021-01-01] MEDS: Doxycycline Hyclate 100 MG in 0.9 % Sodium Chloride 250 ML 166.67 MG IV ×2 (03:52→18:04)
[2021-01-01] MEDS: Piperacillin Sodium/Tazobactam 2.25 GM in 0.9 % Sodium Chloride 50 ML IV (05:29)
[2021-01-01] MEDS: Sodium Bicarbonate 8.4% 150 MEQ in Dextrose 5 % 850 ML 100 MEQ IV ×2 (06:10→18:10)
[2021-01-01 06:53] LABS: Ammonia 77 umol/L (13-55)
[2021-01-01 06:57] LABS: Magnesium 1.8 mg/dL (1.6-2.6)
--- NOTE | 2021-01-01 09:22 | PC.NURSE ---
lethargic, moaning, mostly non verbal, not following commands. Incon of urine. Repos with 2 assist. Unable to take meds at this time. Petechiae rash on moo legs and arms Bed alarm on for safety. Seen by Dr Burris. 02 on at 2l via N/c. desk monitor ST
[2021-01-01 09:27] LABS: Ammonia 93 umol/L (13-55)
[2021-01-01 09:45] LABS: Alanine Aminotransferase 73 U/L (0-31); Albumin Level 1.4 g/dL (3.5-5.0); Alkaline Phosphatase 75 U/L (39-117); Anion Gap 20 (12-20); Aspartate Amino Transferase 292 U/L (5-31); Bilirubin Direct 2.7 mg/dL (0.0-0.5); Bilirubin Total 3.6 mg/dL (0.0-1.0); Blood Urea Nitrogen 30 mg/dL (9-16); Carbon Dioxide 11 mmol/L (22-29); Chloride 116 mmol/L (96-108); Creatinine Clr Calc Pharmacy 30.9; Estimated Glomerular Filt Rate 31; Potassium 3.5 mmol/L (3.3-5.1); Sodium 143 mmol/L (135-145)
[2021-01-01 10:10] LABS: Glucose Random 39 mg/dL (60-115)
[2021-01-01 10:15] LABS: Glucose, Whole Blood 137 mg/dL (60-115)
--- NOTE | 2021-01-01 10:21 | HO.PM.IMPN ---
Subjective Subjective Date of Service: 01/01/21 Interval History: the patient was seen and evaluated this morning Laying in bed, looks very uncomfortable, sick, altered mentation Unable to verbalize any complained but had a rough night with increased agitation and restlessness requiring IV medications No reported other overnight events. Systemic review: Nonverbal today, confused communicate any complaints Physical Exam Vital Signs: Vital Signs: Last Vital Signs Temp 97.5 F 01/01/21 08:02 Pulse 114 H 01/01/21 08:02 Resp 20 01/01/21 08:02 BP 101/48 L 01/01/21 08:02 Pulse Ox 92 01/01/21 08:02 Body Mass Index 16.7 Const: Other: Constitutional : Alert, more confused and restless today, more lethargic and tired Neck : Normal inspection, Supple Cardiovascular : RRR, S1 S2, trace bilateral lower extremity edema Respiratory : Tachypneic, Decrease bilateral air entry, basal bilateral fine crackles, no wheezes or rhonchi Gastrointestinal: soft, lax, Normal bowel sounds, Non tender Skin : Warm/Dry, bilateral lower extremities petechial rash Neurological : Alert & confused, No focal deficit Objective Data Current Medications Generic Name Dose Route Start Last Admin Trade Name Freq PRN Reason Stop Dose Admin Acetaminophen 650 mg 12/27/20 12:12 12/31/20 05:50 Acetaminophen 325 Mg Tablet PO 650 mg Q6H PRN Administration Fever Bisacodyl 5 mg 12/28/20 10:50 Bisacodyl 5 Mg Tablet. PO BEDTIME PRN Constipation Escitalopram Oxalate 10 mg 12/28/20 16:15 01/01/21 09:38 Escitalopram Oxalate 10 Mg Tablet PO Not Given DAILY JEREMY Ferrous Sulfate 324 mg 12/29/20 09:00 01/01/21 09:38 Ferrous Sulfate 324 Mg Tablet. PO Not Given DAILY JEREMY Hydroxyzine HCl 25 mg 12/25/20 12:06 12/31/20 17:39 Hydroxyzine Hcl 25 Mg Tablet PO 25 mg Q6H PRN Administration anxiety/restlessness Doxycycline Hyclate 100 mg/ 250 mls @ 166.67 mls/hr 12/30/20 16:00 01/01/21 05:39 Sodium Chloride IV Infused Q12H JEREMY Infusion Sodium Bicarbonate 150 meq/ 1,000 mls @ 150 mls/hr 12/30/20 15:30 01/01/21 06:10 Dextrose IV 100 mls/hr .Q6H40M [facility] Administration Piperacillin Sod/Tazobactam 50 mls @ 100 mls/hr 12/30/20 18:00 01/01/21 06:11 Sod 2.25 gm/ Sodium Chloride IV Infused Q6H [facility] Infusion Albumin Human 100 mls @ 100 mls/hr 01/01/21 10:15 Kedbumin 25 % IV 01/02/21 05:14 Q6H [facility] Lactulose 20 gm 01/01/21 10:10 Lactulose 20 Gm/30 Ml Solution PO BID [facility] Omeprazole 20 mg 12/21/20 16:30 01/01/21 06:20 Omeprazole 20 Mg Capsule.Dr PO Not Given BID@0630,1630 [facility] Ondansetron HCl 4 mg 12/31/20 11:49 Ondansetron Hcl 4 Mg/2 Ml Vial IVPUSH Q8H PRN Nausea and Vomiting Oxycodone HCl 2.5 mg 12/31/20 11:08 12/31/20 17:39 Oxycodone Hcl Immed Release 5 Mg Tablet PO 2.5 mg Q6H PRN Administration Pain, Severe (Pain Scale 7-10) Prednisone 20 mg 12/28/20 16:10 01/01/21 09:38 Prednisone 20 Mg Tablet PO Not Given DAILY [facility] Psyllium Hydrophilic Mucilloid 3.4 gm 12/22/20 15:30 01/01/21 09:38 Psyllium Seed 3.4 Gm Powd.Pack PO Not Given DAILY [facility] Sodium Bicarbonate 1,300 mg 12/31/20 11:00 01/01/21 09:38 Sodium Bicarbonate 650 Mg Tablet PO Not Given TID [facility] Sodium Bicarbonate 50 meq 01/01/21 10:12 Sodium Bicarbonate 8.4% 50 Meq/50 Ml Vial IVPUSH 01/01/21 10:13 ONCE ONE Sodium Chloride 3 ml 12/21/20 00:00 01/01/21 09:01 0.9 % Sodium Chloride Flush 3 Ml Syringe IVFLUSH Not Given QSHIFT [facility] Sodium Chloride 5 ml 12/25/20 21:00 01/01/21 09:02 0.9 % Sodium Chloride Flush 10 Ml Syringe IVFLUSH Not Given TID [facility] Labs CBC & Chem 7: 12/31/20 06:34 01/01/21 08:55 Microbiology Microbiology Results: Microbiology 12/30/20 08:58 Blood - Venous Blood Culture - Preliminary No growth after 24 hours. 12/30/20 08:58 Blood - Venous Blood Culture - Preliminary No growth after 24 hours. 12/29/20 15:18 Urine clean catch - Clean Catch Midstream Urine Culture - Final Escherichia coli 12/27/20 12:37 Blood - Venous Blood Culture - Preliminary No growth after 48 hours. 12/27/20 12:37 Blood - Venous Blood Culture - Preliminary No growth after 48 hours. 12/22/20 09:20 Blood - Venous Blood Culture - Final No growth after 5 days. 12/22/20 09:14 Blood - Venous Blood Culture - Final No growth after 5 days. 12/21/20 Unknown Urine clean catch - Clean Catch Midstream Urine Culture - Final 12/20/20 20:26 Blood - Venous Blood Culture - Final Staphylococcus aureus 12/20/20 20:18 Blood - Venous Blood Culture - Final Staphylococcus aureus Assessment and Plan (1) Elevated LFTs: Status: Acute (2) Staphylococcus aureus bacteremia: Status: Acute (3) Spleen anomaly: Status: Acute (4) Pancytopenia: Status: Acute (5) Acute renal failure: Status: Acute (6) Positive fecal occult blood test: Status: Acute (7) Lupus: Status: Acute Assessment and Plan: 45-year-old female with a past medical history of hypertension, anemia, interstitial lung disease, lupus presented to the hospital with a chief complaint of generalized weakness and bony pains. Metabolic encephalopathy multifactorial with MILAN and acute liver disease elevated ammonia levels start Lactulose treat underlying infections recurrent reorientation Severe sepsis, resolved Lactic acidosis, resolved Still to source of infection seems to be urine Ucx growing Ecoli Repeat blood cultures pending Antibiotic changed to cefazolin and doxycycline Staph aureus bacteremia no clear source of infection identified Antibiotic changed on multiple occasions (Nafcillin, Cefazoline, Zosyn) now on Cefazoline D11/28 total antibiotics cx MSSA in 2 bottles newly Repeat blood cutltures pending ID eval. appreciated PICC line placed, plan to dc to finish total 28 days of IV nafcillin Pancytopenia Readings continue to go down, platelets around 20 -ve HIV infection normal vitamin B12 and folic acid Elevated IgG on SPEP, Immunofixation elevated free light chain, elevated Ig's Hematology eval appreciated, to do bone Lackey when patient is stable enough To transfuse 2 units of platelets today, target platelets of 50 To arrange for bone Lackey biopsy on Friday, platelets need to be above 50 to consider transfusion Elevated bilirubin Transaminitis Elevated bili 3.6 today, trending down Liver enzymes trending down Could be secondary to sepsis, antibiotics CT Abd\Pel showed spleenomegaly RUQ ultrasound on admission showed abnormal gallbladder with multiple stones and wall thickening with dilated CBD MRCP negative for any CBD stones no signs of acute cholecystitis at that point GI input appreciated, chronic anemia, no cholecystitis, supportive treatment, no CBD stones, no need for ERCP Surgery input appreciated, soft abdomen with no cholecystitis MILAN Metabolic acidosis Cr of 1.8 with worening BUN of 27 Continue IVF with sodium bicarb Start oral sodium bicarb Pending urine studies Nephrology consult appreciated Place dunbar for I\O Monitor creatinine. Avoid nephrotoxins. Hypoglycemia Glu of 38 this morning Not on hypoglycemic agents monitor, encourage oral intake Hypokalemia improved to 3.5 Monitor BMP Hypotension her baseline BP has been on the lower end of 100/60s Unlikely to be due to sepsis Interstitial lung disease Does not seem in exacerbation Nebulizers as needed Hepatitis C Seems to be previous exposure but no chronic infection +ve Ab negative viral load History of lupus On as a supine, on hold Continue prednisone 20 mg daily Her Primary Dr Thapa prescribe the Azathioprime, tried to call but never picked up in clinic! Hematuria +3 blood in urine DD X, stones, GN, mixed w GI bleed CT showed numerous bilateral nonobstructing renal calculi Moderate protein malnutrition Add Ensure Elevated troponins Troponins trended down echocardiogram showing normal LV function DVT prophylaxis SCDs (8) Metabolic encephalopathy: Status: Acute
[2021-01-01 11:47] LABS: Glucose, Whole Blood 78 mg/dL (60-115)
[2021-01-01 11:57] LABS: Creatinine Urine 42.62 mg/dL; Total Protein Urine Random 68 mg/dL (<12)
--- NOTE | 2021-01-01 12:05 | PM.PNNEP ---
Subjective Subjective Date of Service: 01/03/21 Interval history: Events noted Ill appearing Not verbalizing Discussed with Hospitalist Physical Exam Vital Signs: Vital Signs: Last Vital Signs Temp 98.4 F 01/01/21 11:24 Pulse 109 H 01/01/21 11:24 Resp 20 01/01/21 11:24 BP 132/71 01/01/21 11:24 Pulse Ox 93 01/01/21 11:24 Body Mass Index 16.7 Const: General: confusion and ill appearing Orientation/consciousness: confusion Resp: Auscultation: clear to auscultation bilaterally Cardio: Jugular venous distension: no JVD Heart sounds: no gallops and no murmurs GI: Palpation (GI): Soft to palpation Auscultation: normal bowel sounds Neuro: General: confusion Motor exam (neuro): no asterixis Objective Data Labs CBC & Chem 7: 01/01/21 11:50 01/01/21 08:55 Labs: Laboratory Results - last 24 hr 12/29/20 01/01/21 01/01/21 06:08 06:08 06:08 PT INR APTT Sodium Potassium Chloride Carbon Dioxide Anion Gap BUN Creatinine Estim Creat Clear Calc Estimated GFR POC Glucose Random Glucose Calcium Magnesium 1.8 Total Bilirubin Direct Bilirubin AST ALT Alkaline Phosphatase Ammonia 77 H Total Protein Albumin U Random Total Protein Ur Random Sodium Urine Creatinine Blood Type O Positive Antibody Screen POSITIVE Antibody Identification Anti-E Direct Antiglob Test POSITIVE A CARIDAD, Polyspecific POSITIVE A Crossmatch (G) See Detail 01/01/21 01/01/21 01/01/21 08:54 08:55 10:11 PT INR APTT Sodium 143 Potassium 3.5 Chloride 116 H Carbon Dioxide 11 L Anion Gap 20 BUN 30 H Creatinine 1.78 H Estim Creat Clear Calc 30.9 Estimated GFR 31 POC Glucose 137 H Random Glucose 39 L* Calcium 7.0 L Magnesium Total Bilirubin 3.6 H Direct Bilirubin 2.7 H AST 292 H ALT 73 H Alkaline Phosphatase 75 Ammonia 93 H Total Protein 7.0 Albumin 1.4 L U Random Total Protein Ur Random Sodium Urine Creatinine Blood Type Antibody Screen Antibody Identification Direct Antiglob Test CARIDAD, Polyspecific Crossmatch ([facility]) 01/01/21 01/01/21 01/01/21 11:10 11:50 Unknown PT Cancelled INR Cancelled APTT Cancelled Sodium Potassium Chloride Carbon Dioxide Anion Gap BUN Creatinine Estim Creat Clear Calc Estimated GFR POC Glucose 78 Random Glucose Calcium Magnesium Total Bilirubin Direct Bilirubin AST ALT Alkaline Phosphatase Ammonia Total Protein Albumin U Random Total Protein 68 H Ur Random Sodium 67.0 Urine Creatinine 42.62 Blood Type Antibody Screen Antibody Identification Direct Antiglob Test CARIDAD, Polyspecific Crossmatch ([facility]) Microbiology Microbiology Results: Microbiology 12/30/20 08:58 Blood - Venous Blood Culture - Preliminary No growth after 48 hours. 12/30/20 08:58 Blood - Venous Blood Culture - Preliminary No growth after 48 hours. 12/29/20 15:18 Urine clean catch - Clean Catch Midstream Urine Culture - Final Escherichia coli 12/27/20 12:37 Blood - Venous Blood Culture - Preliminary No growth after 48 hours. 12/27/20 12:37 Blood - Venous Blood Culture - Preliminary No growth after 48 hours. 12/22/20 09:20 Blood - Venous Blood Culture - Final No growth after 5 days. 12/22/20 09:14 Blood - Venous Blood Culture - Final No growth after 5 days. 12/21/20 Unknown Urine clean catch - Clean Catch Midstream Urine Culture - Final 12/20/20 20:26 Blood - Venous Blood Culture - Final Staphylococcus aureus 12/20/20 20:18 Blood - Venous Blood Culture - Final Staphylococcus aureus Assessment & Plan Assessment and plan (1) Acute renal failure: Problem details: MILAN in a setting of Lupus/HepC / Hemolytic anemia/Thrombocytopenia ?HUS/TTP Status: Acute Assessment and Plan: Suggest to transfer to tertiary center May need dialysis due to severe acidosis Needs biopsy Time Spent With Patient Time: Total time spent is greater than 50% in coordination of care (as documented) at patient's floor/unit and/or counseling patient: Procedures Date of Service Date of Service: 01/01/21
[2021-01-01 12:16] LABS: INTERNATIONAL NORM RATIO 3.8 (0.9-1.1); Prothrombin Time 45.5 SEC (10.8-13.0)
--- NOTE | 2021-01-01 12:16 | PM.DS ---
DS: Providers Provider Date of Service: 01/01/21 Date of admission: 12/20/20 21:39 Primary care physician: Unknown Physician Consults: 12/20/20 22:06 Consult to Gastroenterology Routine Consulting Provider: Nato Guzman Reason for consultation: guaic positive stool 12/21/20 15:31 Consult to Infectious Diseases Routine Consulting Provider: Nevaeh Rizzo Reason for consultation: Evaluation for gram positive bacteremia, pancytopenia, Hep C infx 12/22/20 07:54 Consult to Hematology / Oncology Routine Consulting Provider: Jennifer Lam Reason for consultation: Pancytopenia, transaminitis, Abnormal Protein\Alb. for your eval. 12/29/20 08:02 Consult to Nephrology Routine Consulting Provider: Jacobo Coronel Reason for consultation: MILAN, Pancytopenia, seems underlying MDS. 12/29/20 13:12 Consult to General Surgery Routine Consulting Provider: Carl Tello Reason for consultation: Evaluation for jaundace, GB stones with wall edema. normal MRCP DS: Diagnosis Discharge Diagnosis (1) Elevated LFTs: Status: Acute (2) Staphylococcus aureus bacteremia: Status: Acute (3) Spleen anomaly: Status: Acute (4) Pancytopenia: Status: Acute (5) Acute renal failure: Status: Acute (6) Positive fecal occult blood test: Status: Acute (7) Lupus: Status: Acute (8) Metabolic encephalopathy: Status: Acute (9) Metabolic acidosis: Status: Acute DS: Medications Discharge Medications Home Medications: Home Medications Medication Instructions Recorded Confirmed azathioprine [Azasan] 1 tab PO BID 12/28/20 12/28/20 cholecalciferol (vitamin D3) 1 tab PO DAILY 12/28/20 12/28/20 citalopram 1 tab PO DAILY 12/28/20 12/28/20 ferrous sulfate 1 tab PO DAILY 12/28/20 12/28/20 omeprazole 1 cap PO DAILY 12/28/20 12/28/20 prednisone 1 tab PO DAILY 12/28/20 12/28/20 trazodone 1 tab PO BEDTIME PRN 12/28/20 12/28/20 DS: Summary Hospital Course Hospital Course: Admission note HPI 45-year-old female with a past medical history of lupus, hypertension, anemia, interstitial lung disease, joint pains presented to the hospital with a chief complaint of generalized weakness for the past 4 days. Mentions that she has been having body aches all over-mentions as bone pains; which have been chronic and lately has been increasing in severity. Denies any specific joint pains. Also reports dry cough. Denies fever chills. Denies any numbness tingling. Denies any GI or symptoms. Denies any chest pain palpitations. Mentioned that she has decreased oral intake lately. Denies any nausea. Review of all other systems is negative except mentioned above ER course: Per ER team patient examination was benign. Patient denied any chest pain. EKG was nonischemic. Initial troponin was [id number] troponin pending. Patient was given Solu-Medrol given concerns for ILD. COVID-19 negative. Hospital course 45-year-old female with a past medical history of hypertension, anemia, interstitial lung disease, lupus presented to the hospital with a chief complaint of generalized weakness and body pains. Evaluated primarily with SPEP and immunofixation that showed elevated kappa, lambda, Ig. Evaluated by Hematology who recommended Bone Lackey was not done eventually as the patient continue to deteriorate and platelets continue to drop down. Blood cultures from time of admission grew MSSA with no clear source of infection. Treated primarily with IV nafcillin per ID recommendation which was changed to cefazolin as the patient developed cholestasis. On day 11 from . Patient started to spike fever on 12/29 requiring evaluating for sepsis and showing UTI with E coli as conservative bacteria. Antibiotic was changed to Zosyn for 3 days before changing it back to cephazolin wants E coli grew. Blood cultures still negative. Started to developed acute kidney injury around time of sepsis with creatinine stabilized around 1.8 with decreased urine output to less than 1 L daily (patient was partially incontinent to urine as well). Evaluated by Nephrology who recommended further evaluation and possible need for kidney biopsy given her history of lupus. DIC Patient noticed to have mouth bleeding this morning DIC profile showed : Elevated INR to 3.8, elevated D-dimer 3000 with Low fibrinogen of 77 To transfuse 3 units of platelets and 2 units fresh frozen plasma Underlying increase in could be malignancy, sepsis, Abx ? Abx changed back to Cefazoline D1/ and Doxycycline after discussing with ID Discussed with Hematology recommended transfusion of PLT and FFP Metabolic encephalopathy multifactorial with MILAN and acute liver disease Has elevated ammonia level, no history of cirrhosis, on lactulose CT scan of the head on January 01 negative for any acute findings treat underlying infections recurrent reorientation Staph aureus bacteremia no clear source of infection identified Antibiotic changed on multiple occasions (Nafcillin, Cefazoline, Zosyn) now on Cefazoline D111/30 total antibiotics cx MSSA in 2 bottles newly Repeat blood cutltures pending ID eval. appreciated PICC line placed, plan to dc to finish total 28 days of IV nafcillin Pancytopenia Readings continue to go down, platelets around 20 -ve HIV infection normal vitamin B12 and folic acid Elevated IgG on SPEP, Immunofixation elevated free light chain, elevated Ig's Hematology eval appreciated, to do bone Lackey when patient is stable enough Received 2 units of platelets December 31, target platelets of 50 To arrange for bone Lackey biopsy on Friday, platelets need to be above 50 to consider transfusion MILAN Metabolic acidosis Cr of 1.8 with worsening BUN of 27 Bicarbonate level at 11 (has been stable around the same number for 2 days) On IVF with sodium bicarb 150 mEq Start oral sodium bicarb urine studies showing significant proteinuria Nephrology team following, will need further eval for possible dunbar for I\O Monitor creatinine. Avoid nephrotoxins. Severe sepsis, resolved Lactic acidosis, resolved source of infection seems to be urine Ucx growing Ecoli Repeat blood cultures pending Antibiotic changed to cefazolin and doxycycline Elevated bilirubin Transaminitis Elevated bili 3.6 today, trending down Liver enzymes trending down Could be secondary to sepsis, antibiotics CT Abd\Pel showed spleenomegaly RUQ ultrasound on admission showed abnormal gallbladder with multiple stones and wall thickening with dilated CBD MRCP negative for any CBD stones no signs of acute cholecystitis at that point GI input appreciated, chronic anemia, no cholecystitis, supportive treatment, no CBD stones, no need for ERCP Surgery input appreciated, soft abdomen with no cholecystitis Hypoglycemia Glu of 38 this morning Not on hypoglycemic agents monitor, encourage oral intake otherwise to start D5W. Interstitial lung disease Does not seem in exacerbation Nebulizers as needed Hepatitis C Tested positive on screening at this admission. Seems to be previous exposure but no chronic infection +ve Ab with negative viral load History of lupus On Azathiprine on hold Continue prednisone 20 mg daily Her Primary Dr Thapa prescribe the Azathioprime, tried to call multiple occasions but never was able to talk to anyone in the clinic. Time Spent with Patient Time attestation: Total time spent providing and/or coordinating discharge services: Discharge coordination time: Greater than 30 minutes Physical Exam Vital Signs: Vital Signs: Last Vital Signs Temp 98.4 F 01/01/21 11:24 Pulse 109 H 01/01/21 11:24 Resp 20 01/01/21 11:24 BP 132/71 01/01/21 11:24 Pulse Ox 93 01/01/21 11:24 Body Mass Index 16.7 Constitutional : Alert with stimulation, confused, disoriented, mildly restless Neck : Normal inspection, Supple Cardiovascular : RRR, S1 S2, no lower extremity edema Respiratory : fair bilateral air entry, basal bilateral crackles, wheezes or rhonchi, On 3L O2. Gastrointestinal: soft, lax, Normal bowel sounds, Non tender Skin : Warm/Dry, generalized petechial rash Neurological : Alert & confused, No focal deficit DS: Data Data Completed and Pending Labs on day of discharge: Laboratory Results - last 24 hr 12/29/20 01/01/21 01/01/21 06:08 06:08 06:08 PT INR APTT Sodium Potassium Chloride Carbon Dioxide Anion Gap BUN Creatinine Estim Creat Clear Calc Estimated GFR POC Glucose Random Glucose Calcium Magnesium 1.8 Total Bilirubin Direct Bilirubin AST ALT Alkaline Phosphatase Ammonia 77 H Total Protein Albumin U Random Total Protein Ur Random Sodium Urine Creatinine Blood Type O Positive Antibody Screen POSITIVE Antibody Identification Anti-E Direct Antiglob Test POSITIVE A CARIDAD, Polyspecific POSITIVE A Crossmatch ([facility]) See Detail 01/01/21 01/01/21 01/01/21 08:54 08:55 10:11 PT INR APTT Sodium 143 Potassium 3.5 Chloride 116 H Carbon Dioxide 11 L Anion Gap 20 BUN 30 H Creatinine 1.78 H Estim Creat Clear Calc 30.9 Estimated GFR 31 POC Glucose 137 H Random Glucose 39 L* Calcium 7.0 L Magnesium Total Bilirubin 3.6 H Direct Bilirubin 2.7 H AST 292 H ALT 73 H Alkaline Phosphatase 75 Ammonia 93 H Total Protein 7.0 Albumin 1.4 L U Random Total Protein Ur Random Sodium Urine Creatinine Blood Type Antibody Screen Antibody Identification Direct Antiglob Test CARIDAD, Polyspecific Crossmatch ([facility]) 01/01/21 01/01/21 01/01/21 11:10 11:50 Unknown PT Cancelled INR Cancelled APTT Cancelled Sodium Potassium Chloride Carbon Dioxide Anion Gap BUN Creatinine Estim Creat Clear Calc Estimated GFR POC Glucose 78 Random Glucose Calcium Magnesium Total Bilirubin Direct Bilirubin AST ALT Alkaline Phosphatase Ammonia Total Protein Albumin U Random Total Protein 68 H Ur Random Sodium 67.0 Urine Creatinine 42.62 Blood Type Antibody Screen Antibody Identification Direct Antiglob Test CARIDAD, Polyspecific Crossmatch ([facility]) Preliminary micro results at discharge 12/30/20 08:58 Blood Culture - Preliminary Blood - Venous No growth after 48 hours. 12/30/20 08:58 Blood Culture - Preliminary Blood - Venous No growth after 48 hours. 12/27/20 12:37 Blood Culture - Preliminary Blood - Venous No growth after 48 hours. 12/27/20 12:37 Blood Culture - Preliminary Blood - Venous No growth after 48 hours. Discharge Plan Discharge Patient Disposition: [facility] Referrals: Physician,Unknown [Primary Care Provider] - (Rehab-) Discharge Medications: New cefazolin 1 gram Recon Soln 1 g IV Q8H Qty: 1 RF: 0 doxycycline hyclate [Doxy-100] 100 mg Recon Soln 100 mg IV Q12H Qty: 1 RF: 0 sodium bicarbonate 650 mg Tablet 1,300 mg PO TID Qty: 1 RF: 0 omeprazole 20 mg Capsule,Delayed Release(Dr/Ec) 20 mg PO BID@0630,1630 Qty: 1 RF: 0 Continued prednisone 20 mg tablet 1 tab PO DAILY RF: 0 citalopram 20 mg tablet 1 tab PO DAILY RF: 0 ferrous sulfate 325 mg (65 mg iron) tablet 1 tab PO DAILY RF: 0 Azasan 100 mg tablet 1 tab PO BID RF: 0 cholecalciferol (vitamin D3) 50 mcg (2,000 unit) tablet 1 tab PO DAILY RF: 0 trazodone 50 mg tablet 1 tab PO BEDTIME PRN (Reason: Insomnia) RF: 0 omeprazole 40 mg capsule,delayed release(DR/EC) 1 cap PO DAILY RF: 0 Diet: other Activity on Discharge: As tolerated Stand Alone Forms: Patient Portal Discharge page Care Plan Goals: Read below Health Concerns: Read below Plan of Treatment: To continue evaluation and treatment at [facility]
[2021-01-01 12:19] LABS: EOS Counted 1 CELLS; EOS QC POS YES; EOS Stain Quality OK YES; WBC, Counted 1 CELLS
[2021-01-01 12:28] LABS: Lactate Dehydrogenase 717 U/L (122-220)
[2021-01-01 12:30] LABS: D Dimer 3203 NG/ML; Fibrinogen 77 MG/DL (259-690); Partial Thromboplastin Time 80.3 SEC (24.1-38.0)
[2021-01-01] MEDS: Albumin Human 25 % 100 ML IV (13:05)
[2021-01-01 14:19] LABS: Atypical Lymphs Percent Manual 5 % (0-6); Band Neutrophils Percent 22 % (3-5); Lymphocytes Percent Manual 14 % (20-40); Monocytes Percent Manual 4 % (2-11); Neutrophils Percent Manual 55 % (45-73)
[2021-01-01 14:20] LABS: RBC Morphology NOTED
[2021-01-01 14:21] LABS: Macrocytosis 2+; Rouleau PRESENT; Tear Drop Cells 1+
[2021-01-01 14:22] LABS: Nucleated Red Blood Cells 1 /100WBC (0-0); Platelet Estimate DECREASED (NORMAL); Platelet Morphology Comment NORMAL; Schistocytes 1+; Toxic Vacuolation PRESENT
[2021-01-01 14:24] LABS: Atypical Lymph Absolute Manual 0.2 x10*3/uL; Baso%MD 0.2 %; Eos%MD 0.2 %; Hematocrit 29.2 % (37-47); Hemoglobin 9.1 g/dl (12.0-16.0); IG%MD 1.2 %; Immature Retic Fraction 23.8 % (3.0-15.9); Lymph%MD 23.4 %; Lymphocytes Absolute Manual 0.6 X10*3/uL (0.6-4.8); Mean Corpuscular HGB Conc 31.2 g/dl (31.0-35.0); Mean Corpuscular Hemoglobin 31.9 pg (27.0-33.0); Mean Corpuscular Volume 102.5 fL (80-98); Mono%MD 14.7 %; Monocytes Absolute Manual 0.2 X10*3/uL (0.0-1.2); Neut%MD 60.3 %; Neutrophils Absolute Manual 3.2 X10*3/uL (2.2-7.9); Red Blood Count 2.85 X10*6/uL (4.20-5.50); Red Cell Distribution Width 24.1 % (11.0-16.0); Retic HGB Equivalent 34.7 pg (30.0-35.0); Reticulocyte Percent 3.9 % (0.5-1.8); Reticulocytes Absolute 0.112 X10*6/uL (0.026-0.095); White Blood Count 4.1 X10*3/uL (4.8-10.8)
[2021-01-01 14:25] LABS: NRBC Pct Auto 2.2 /100WBC (0.0-0.2); Platelet Count 26 X10*3/uL (160-400)
[2021-01-01 14:46] LABS: Glucose, Whole Blood 54 mg/dL (60-115)
[2021-01-01] MEDS: Sodium Bicarbonate 8.4% 50 MEQ/50 ML VIAL IVPUSH (15:26)
--- NOTE | 2021-01-01 16:01 | PC.NURSE ---
1000 critical glucose 39 IV Dexrose 25gn given with good eff. Recheck glucose was 137 Dr Burris aware. Pt cont to be restless, removing 02, tossing and turning in be. sinus tach on monitor. PCX R ordered and done in room. 1030 F/C inserted. Urine spec sent to lab. [address] scan. cement or concrete finishing supervisor Jessenia went with patient. 1230 crit PTT 80.[address] Burris. sitter with patient. [address] [facility] called. RN not able to take report. states she will call back. No change in patient. still restless and moaning. ref PO POC glucose checked and is 54. Dextrose 25gm given IV per protocal Dr Burris aware.
[2021-01-01 16:41] LABS: Complement C3 15 mg/dL (83-193)
--- NOTE | 2021-01-01 16:48 | PC.NURSE ---
2299 report given to RN at [facility] Sarah
[2021-01-01] MEDS: 0.9 % Sodium Chloride Flush 10 ML SYRINGE 5 ML IVFLUSH (18:05)
[2021-01-01] MEDS: 0.9 % Sodium Chloride Flush 3 ML SYRINGE IVFLUSH (18:05)
[2021-01-01] MEDS: LORazepam 2 MG/ML VIAL 0.5 MG IVPUSH (18:14)
[2021-01-03 12:20] LABS: HCV Log PCR <1.18 NOT DETECTED; HepC Viral Load <15 NOT DETECTED
== END 2021-01-01 21:35 | disposition short-term general hospital (02) | DRG 660 ==
LOC: HO.ED 22:21 → HO.EDOVER 12-21 04:22 → HO.S3 12-21 07:07
PROVIDERS: Internal Medicine; Internal Medicine Medical Oncology; Internal Medicine Nephrology; Physician Assistant Medical; Admitting Provider Hospitalist; Emergency Provider Internal Medicine; Visit Provider Student in an Organized Health Care Education/Training Program
DX: D61.818 Other pancytopenia (principal); D65 Disseminated intravascular coagulation [defibrination syndrome]; R65.20 Severe sepsis without septic shock; G93.41 Metabolic encephalopathy; A41.9 Sepsis, unspecified organism; J84.9 Interstitial pulmonary disease, unspecified; E44.0 Moderate protein-calorie malnutrition; N17.9 Acute kidney failure, unspecified; M32.9 Systemic lupus erythematosus, unspecified; R74.01 Elevation of levels of liver transaminase levels; R31.9 Hematuria, unspecified; E03.9 Hypothyroidism, unspecified; N18.2 Chronic kidney disease, stage 2 (mild); N39.0 Urinary tract infection, site not specified; E87.6 Hypokalemia; E16.2 Hypoglycemia, unspecified; R19.5 Other fecal abnormalities; Z68.1 Body mass index [BMI] 19.9 or less, adult; Z20.822 Contact with and (suspected) exposure to COVID-19; Z79.52 Long term (current) use of systemic steroids; Z79.899 Other long term (current) drug therapy
CPT/HCPCS: 0241U; 36415; 36430; 36573; 70450; 71045; 71046; 74176; 74181; 76705; 80048; 80076; 80202; 80307; 81001; 81003; 82140; 82232; 82272; 82550; 82607; 82728; 82746; 82784; 82947; 83520; 83540; 83605; 83615; 83735; 84145; 84155; 84156; 84165; 84300; 84484; 84702; 85007; 85025; 85027; 85045; 85060; 85379; 85384; 85610; 85730; 86140; 86160; 86334; 86704; 86706; 86709; 86803; 86850; 86870; 86880; 86885; 86900; 86901; 86902; 86905; 86920; 86921; 86922; 87040; 87077; 87086; 87088; 87147; 87186; 87205; 87340; 87389; 87522; 89190; 93005; 93306; 96361; 96365; 96366; 96375; 97110; 97116; 97163; 97530; 99285; 99291; C1751; C1758; J0456; J0690; J0696; J1642; J1650; J1885; J2060; J2543; J2920; J2930; J3370; P9035; P9047